=== PATIENT | male | born 1970 | race Caucasian/White ===

== ENCOUNTER → 2017-12-03 14:51 | Outpatient (CLI) | payer OTHER, SELFPAY ==
[2017-12-03 17:27] LABS: Prostate Specific Ag Screen 0.3 ng/mL (0.0-4.0)
== END ==
PROVIDERS: PCP Emergency Medicine; Visit Provider Urology
DX: Z12.5 Encounter for screening for malignant neoplasm of prostate (principal); Z80.42 Family history of malignant neoplasm of prostate
CPT/HCPCS: 36415; G0103

== ENCOUNTER → 2017-12-31 14:27 | Outpatient (CLI) | payer OTHER, SELFPAY ==
[2018-01-02 07:14] LABS: FSH 30.1 mIU/mL (1.5-12.4); LH 17.1 mIU/mL (1.7-8.6)
[2018-01-02 09:33] LABS: Prolactin 6.2 ng/mL (4.0-15.2)
[2018-01-04 18:35] LABS: Testosterone, Total, LC/MS 152.1 ng/dL (264.0-916.0)
== END ==
PROVIDERS: Visit Provider Urology
DX: E29.1 Testicular hypofunction (principal)
CPT/HCPCS: 36415; 83001; 83002; 84146; 84403

== ENCOUNTER → 2018-06-24 16:38 | Outpatient (CLI) | payer MEDICARE, OTHER, SELFPAY ==
[2018-06-24 16:56] LABS: Basophils % 0.2 % (0.1-2.0); Eosinophils # 0.1 K/mm3 (0.0-0.4); Eosinophils % 1.3 % (0.1-12.0); Hemoglobin 14.6 g/dL (14.1-18.0); Lymphocytes # 1.6 K/mm3 (0.7-4.5); Lymphocytes % 19.5 K/mm3 (10-50); Mean Corpuscular HGB Conc 33.3 g/dL (31.8-35.4); Mean Corpuscular Hemoglobin 29.8 pg (27.0-31.2); Mean Corpuscular Volume 89.5 fl (80-94); Mean Platelet Volume 6.9 fl (7.4-10.4); Monocytes # 0.5 K/mm3 (0.1-1.0); Monocytes % 5.7 % (1.7-9.3); Neutrophils % 73.3 % (37.0-80.0); Platelet Count 305 K/mm3 (142-424); Red Blood Count 4.91 M/mm3 (4.60-6.20); Red Cell Distribution Width 13.2 % (11.5-17.5); White Blood Count 8.2 K/mm3 (4.8-10.8)
[2018-06-24 17:44] LABS: Alanine Aminotransferase 63 U/L (12-78); Albumin Level 3.9 gm/dL (3.4-5.0); Albumin/Globulin Ratio 1.1 (1.1-1.8); Alkaline Phosphatase 108 U/L (46-116); Anion Gap 16.1 mEq/L (5-15); Aspartate Amino Transferase 31 U/L (15-37); Bilirubin,Total 0.4 mg/dL (0.2-1.0); Blood Urea Nitrogen 10 mg/dL (7-18); Calcium 8.9 mg/dL (8.5-10.1); Carbon Dioxide 26 mmol/L (21.0-32.0); Chloride 103 mmol/L (98-107); Chol/HDL Ratio 4.2 (1-3.5); Cholesterol 182 mg/dL (140-200); Creatinine,Serum 0.98 mg/dL (0.70-1.30); Estimated Glomerular Filt Rate 82 ml/min (>60); GFR (African American) 99 ML/MIN (>60); Globulin 3.6 gm/dl (1.3-3.2); Glucose 168 mg/dL (74-106); HDL Cholesterol 43 mg/dL (27-67); LDL Cholesterol 69 mg/dL (0-130); Potassium 4.1 mmoL/L (3.5-5.1); Sodium 141 mmol/L (136-145); T4 (Thyroxine) 9.4 ug/dl (4.7-13.3); Thyroid Stimulating Hormone 0.73 uIU/ml (0.358-3.740); Total Protein,Serum 7.5 gm/dL (6.4-8.2); Triglycerides 351 mg/dL (30-200); VLDL Cholesterol 70 mg/dL (0-40)
[2018-06-24 18:05] LABS: Hemoglobin A1C 7.7 % (0.0-7.0)
== END ==
PROVIDERS: PCP Emergency Medicine; Visit Provider Emergency Medicine
DX: E78.5 Hyperlipidemia, unspecified (principal); F32.9 Major depressive disorder, single episode, unspecified; F41.9 Anxiety disorder, unspecified; I10 Essential (primary) hypertension; R79.9 Abnormal finding of blood chemistry, unspecified
CPT/HCPCS: 36415; 80053; 80061; 80164; 83036; 84436; 84443; 85025

== ENCOUNTER → 2018-07-14 15:58 | Outpatient (REF) | payer MEDICARE, SELFPAY ==
[2018-07-16 09:17] LABS: Hep A Ab, IgM Negative (Negative); Hepatitis B Core Antibody IgM Negative (Negative); Hepatitis B Surface Antigen Negative (Negative)
[2018-07-16 11:34] LABS: Hepatitis C Antibody <0.1 s/co ratio (0.0-0.9)
== END ==
LOC: LAB 15:58
PROVIDERS: Visit Provider Emergency Medicine
DX: R53.83 Other fatigue (principal); E11.9 Type 2 diabetes mellitus without complications
CPT/HCPCS: 80074

== ENCOUNTER → 2019-01-13 18:17 | Outpatient (CLI) | payer MEDICARE, SELFPAY ==
[2019-01-13 19:28] LABS: Basophils % 0.4 % (0.1-2.0); Eosinophils # 0.1 K/mm3 (0.0-0.4); Eosinophils % 0.8 % (0.1-12.0); Hematocrit 47.1 % (42.0-52.0); Hemoglobin 15.1 g/dL (14.1-18.0); Lymphocytes # 1.8 K/mm3 (0.7-4.5); Lymphocytes % 17.1 % (10-50); Mean Corpuscular HGB Conc 32.1 g/dL (31.8-35.4); Mean Corpuscular Hemoglobin 29.3 pg (27.0-31.2); Mean Corpuscular Volume 91.4 fl (80-94); Mean Platelet Volume 8.1 fl (7.4-10.4); Monocytes # 0.5 K/mm3 (0.1-1.0); Monocytes % 4.9 % (1.7-9.3); Neutrophils # 8.2 K/mm3 (1.8-7.8); Neutrophils % 76.7 % (37.0-80.0); Platelet Count 390 K/mm3 (142-424); Red Blood Count 5.15 M/mm3 (4.60-6.20); Red Cell Distribution Width 13.2 % (11.5-17.5); White Blood Count 10.6 K/mm3 (4.8-10.8)
[2019-01-13 20:53] LABS: Alanine Aminotransferase 50 U/L (12-78); Albumin Level 4.4 gm/dL (3.4-5.0); Albumin/Globulin Ratio 1.2 (1.1-1.8); Alkaline Phosphatase 110 U/L (46-116); Anion Gap 17.5 mEq/L (5-15); Aspartate Amino Transferase 20 U/L (15-37); Bilirubin,Total 0.4 mg/dL (0.2-1.0); Blood Urea Nitrogen 9 mg/dL (7-18); Calcium 9.2 mg/dL (8.5-10.1); Carbon Dioxide 26 mmol/L (21.0-32.0); Chloride 98 mmol/L (98-107); Chol/HDL Ratio 4.5 (1-3.5); Cholesterol 179 mg/dL (140-200); Creatinine,Serum 1.06 mg/dL (0.70-1.30); Estimated Glomerular Filt Rate 75 ml/min (>60); GFR (African American) 90 ML/MIN (>60); Globulin 3.7 gm/dl (1.3-3.2); Glucose 154 mg/dL (74-106); HDL Cholesterol 40 mg/dL (27-67); LDL Cholesterol 90 mg/dL (0-130); Potassium 4.5 mmoL/L (3.5-5.1); Sodium 137 mmol/L (136-145); T4 (Thyroxine) 9.6 ug/dl (4.7-13.3); Thyroid Stimulating Hormone 1.98 uIU/ml (0.358-3.740); Total Protein,Serum 8.1 gm/dL (6.4-8.2); Triglycerides 245 mg/dL (30-200); VLDL Cholesterol 49 mg/dL (0-40)
[2019-01-13 21:03] LABS: Hemoglobin A1C 6.9 % (0.0-7.0)
[2019-01-15 15:06] LABS: Vitamin D 25 Hydroxy 45.1 ng/mL (30.0-100.0)
== END ==
PROVIDERS: Visit Provider Emergency Medicine
DX: E11.9 Type 2 diabetes mellitus without complications (principal); E78.5 Hyperlipidemia, unspecified; Z79.4 Long term (current) use of insulin; F17.210 Nicotine dependence, cigarettes, uncomplicated
CPT/HCPCS: 80053; 80061; 82652; 83036; 84436; 84443; 85025

== ENCOUNTER → 2019-03-02 06:02 | Outpatient (CLI) | payer MEDICARE, SELFPAY ==
--- NOTE | 2019-03-02 06:05 | CA_ITS ---
PROCEDURE: 2-D M-mode and color Doppler study INDICATIONS FOR THE TEST: Chest pain + COPD+ Heart Murmur Tobacco Smoking+ Palpitations Fatigue Syncope Edema+ Hypertension+Diabetes Mellitus+ Rheumatic Fever SOB [place]+Obesity Hyperlipidemia+ Family History HD Additional History gerd PATIENT INFORMATION HEIGHT: 70 WEIGHT:223 GENDER: Male B/P:151/81 2-D/M-MODE INTERPRETATION: 2-D MEASUREMENTS OBSERVED VALUES IN CMS Right Ventricular Dimension (RVDd) 2.6 Interventricular Septum (Thickness)(IVsd) 1.6 Left Ventricular Internal Dimensions(LVIDd) 4.9 Left Ventricular Posterior Wall (Thickness)(LVPWd) 1.0 Aortic Root 2.5 Aortic Cusp Separation 1.9 Left Atrial Dimensions (LAD) 3.1 2D 1. Left atrium is mildly enlarged, left ventricle is normal size, mild concentric left ventricular hypertrophy, visually estimated ejection fraction 55% with no regional wall motion abnormality. 2. The right atrium and right ventricle are mildly enlarged with normal contractility. 3. The aortic, mitral and tricuspid valve are grossly normal. 4. The pulmonic valve is poorly visualized. 5. No significant pericardial effusion noted. DOPPLER INTERROGATION: Doppler interrogation of the aortic, mitral and tricuspid valvular presence of mild mitral and tricuspid regurgitation, tricuspid regurgitation jet velocity is inadequate for calculation of the right ventricular systolic pressure, grade 1 diastolic dysfunction seen without tissue Doppler evidence of raised left atrial pressure. CONCLUSION: 1. Mildly left atrium, normal left ventricular size, mild concentric left ventricular hypertrophy, visually estimated ejection fraction 55% with no regional wall motion abnormality, grade 1 diastolic dysfunction seen without tissue Doppler evidence of raised left atrial pressure. 2. Mild mitral and tricuspid regurgitation. 3. No significant pericardial effusion noted
--- NOTE | 2019-03-02 06:21 | NM_ITS ---
CARDIOLITE SPECT MYOCARDIAL PERFUSION LEXISCAN, REST AND STRESS: [facility] REVIEW QGS EF AND WALL MOTION EVALUATION: QPS - PERFUSION EVALUATION HISTORY: Chest pain, SOB, HTN, DM, Family history, Tobacco use DOSE: 10.05 mCi technetium 99m mibi intravenously at rest followed by 29.6 mCi technetium 99m mibi following the intravenous ministration of 0.4 mg of Lexiscan. Resting blood pressure is 163/91. Stress blood pressure 174/77. FINDINGS: Ejection fraction is calculated to be 60%. Stress images reveal mildly decreased activity in the inferior apical wall while rest images reveal uniform myocardial activity IMPRESSION: Reversible ischemia in the inferior apical wall with normal ejection fraction normal wall motion
== END ==
PROVIDERS: PCP Emergency Medicine; Visit Provider Internal Medicine Cardiovascular Disease
DX: E78.5 Hyperlipidemia, unspecified (principal); I10 Essential (primary) hypertension; R06.00 Dyspnea, unspecified; R07.9 Chest pain, unspecified
CPT/HCPCS: 78452; 93017; 93306; A9502; J2785

== ENCOUNTER 2019-03-12 08:11 | Day surgery (SDC) | payer MEDICARE, SELFPAY ==
[2019-03-12] VITALS (19 sets, daily range): BP systolic 110–160; BP diastolic 61–90; PULSE 60–81; RESP 16; O2SAT 90–96; BMI 32.8
--- NOTE | 2019-03-12 | IR_ITS ---
CARDIAC CATHETERIZATION DATE OF CATHETERIZATION:03/12/2019 10:40 AM PROCEDURES: 1. Left heart catheterization 2. Left ventriculogram 3. Selective coronary angiogram INDICATION FOR TEST: 1. Abnormal Myoview 2. Risk factors for coronary artery disease 3. Angina pectoris Informed consent was obtained prior to the procedure. COMPLICATIONS: None ESTIMATED BLOOD LOSS: Less than 10 ml. TECHNIQUE: One percent lidocaine was used to anesthetize the right groin. The right femoral artery was accessed via the Seldinger technique. A 4-Armenian sheath was placed in the right femoral artery. The JL-4 and JR-4 catheter was also used to perform left heart catheterization left ventriculogram and selective coronary angiogram. At the end of the procedure the patient was transferred to the post-op holding area in stable condition for arterial sheath removal. ANGIOGRAPHIC RESULTS: 1. The left main artery normal 2. The left anterior descending artery has proximal 10-20% stenosis 3. The circumflex artery is a nondominant vessel and has 30% mid vessel stenosis 4. The right coronary artery is a large dominant vessel and normal 5. The ROMANO ventriculogram reveals normal 65% 6. The left ventricular end-diastolic pressure is a 25 mmHg IMPRESSION: 1. Mild nonflow limiting coronary artery disease 2. Normal ejection fraction 3. Elevated LVEDP consistent with diastolic dysfunction PLAN: 1. Treatment of diastolic dysfunction 2. Standard therapy for ischemic heart disease
[2019-03-12 09:01] LABS: Basophils % 0.2 % (0.1-2.0); Eosinophils # 0.1 K/mm3 (0.0-0.4); Eosinophils % 1.5 % (0.1-12.0); Hematocrit 39.5 % (42.0-52.0); Hemoglobin 13.8 g/dL (14.1-18.0); Lymphocytes # 1.6 K/mm3 (0.7-4.5); Lymphocytes % 18.6 % (10-50); Mean Corpuscular HGB Conc 35.1 g/dL (31.8-35.4); Mean Corpuscular Hemoglobin 30.1 pg (27.0-31.2); Mean Platelet Volume 7.8 fl (7.4-10.4); Monocytes # 0.6 K/mm3 (0.1-1.0); Monocytes % 6.8 % (1.7-9.3); Neutrophils # 6.1 K/mm3 (1.8-7.8); Neutrophils % 72.9 % (37.0-80.0); Platelet Count 291 K/mm3 (142-424); Red Cell Distribution Width 13.1 % (11.5-17.5); White Blood Count 8.3 K/mm3 (4.8-10.8)
[2019-03-12 09:06] LABS: Anion Gap 13.7 mEq/L (5-15); Blood Urea Nitrogen 13 mg/dL (7-18); Carbon Dioxide 25 mmol/L (21.0-32.0); Chloride 101 mmol/L (98-107); Creatinine Clearance Estimated 130 mL/min (50-200); Creatinine,Serum 1.02 mg/dL (0.70-1.30); Estimated Glomerular Filt Rate 78 ml/min (>60); GFR (African American) 94 ML/MIN (>60); Glucose 181 mg/dL (74-106); Sodium 136 mmol/L (136-145)
[2019-03-12 09:30] LABS: Potassium 3.7 mmoL/L (3.5-5.1)
== END 2019-03-12 14:32 | disposition home or self-care (01) ==
LOC: CATHLAB 08:14
PROVIDERS: PCP Emergency Medicine; Visit Provider Internal Medicine
DX: I25.10 Atherosclerotic heart disease of native coronary artery without angina pectoris (principal); I50.30 Unspecified diastolic (congestive) heart failure; E11.9 Type 2 diabetes mellitus without complications; J44.9 Chronic obstructive pulmonary disease, unspecified; I11.0 Hypertensive heart disease with heart failure; Z72.0 Tobacco use; E78.5 Hyperlipidemia, unspecified; Z79.51 Long term (current) use of inhaled steroids; Z79.84 Long term (current) use of oral hypoglycemic drugs; Z79.899 Other long term (current) drug therapy
CPT/HCPCS: 80048; 85025; 93458; 99152; C1725; C1769; J1644; Q9967

== ENCOUNTER → 2019-03-26 14:39 | Outpatient (CLI) | payer MEDICARE, SELFPAY | PROVIDERS: PCP Emergency Medicine; Visit Provider Internal Medicine Cardiovascular Disease | DX: E78.2 Mixed hyperlipidemia (principal); I10 Essential (primary) hypertension; I25.10 Atherosclerotic heart disease of native coronary artery without angina pectoris; R06.02 Shortness of breath; R53.83 Other fatigue; G47.33 Obstructive sleep apnea (adult) (pediatric) | CPT/HCPCS: G0399 ==

== ENCOUNTER → 2019-05-06 15:18 | Outpatient (CLI) | payer MEDICARE, SELFPAY ==
[2019-05-06 17:05] VITALS: BMI 30.1
== END ==
PROVIDERS: PCP Emergency Medicine; Visit Provider Emergency Medicine
DX: Z71.3 Dietary counseling and surveillance (principal); E11.9 Type 2 diabetes mellitus without complications
CPT/HCPCS: 97802

== ENCOUNTER → 2020-03-30 06:06 | Outpatient (CLI) | payer MEDICARE, SELFPAY ==
--- NOTE | 2020-03-30 06:08 | NM_ITS ---
APPROVED REPORT Exam: Nuclear Stress Test Indication: Chest pain, SOB, HTN, DM, High cholesterol, Tobacco use, Family history Patient Location: Outpatient Stress Tech: Tanaandree Angel [place] Tech:Bianca Estrada, ARRT, RT (R)(N) Ht: 5 ft 10 in Wt: 214 lbs HR: 54 bpm BP: 129/71 mmHg BSA: 2.15 m2 BMI: 30.7 History: Chest pain, SOB, HTN, DM, High cholesterol, Tobacco use, Family history Procedure: Patient received a 0.4 mg of intravenous Lexiscan, resting heart rate 54 bpm, resting blood pressure 129/71 mmHg, with Lexiscan maximum heart rate achived was 91 bpm which is % of the maximum predicted heart rate and blood pressure was 100/63 mmHg. With Lexiscan, patient denied any complaint of chest pain. Cardiac Stress and Resting SPECT Images: Cardiac Stress and Resting SPECT images were obtained using technetium 99m Myoview 30.8 mCi stress and 10.31 mCi at rest. Left ventricular ejection fraction is normal at 60% with no obvious wall motion abnormalities. No fixed or reversible defects evident Conclusion: Normal exam Electronically signed by : Cesar Coelho MD 04/01/2020 14:40:23
--- NOTE | 2020-03-30 06:08 | CA_ITS ---
APPROVED REPORT Exam: Pharmacologic Technologist: Tana Angel, Ht: 5 ft 10 in Wt: 214 lbs BSA: 2.15 m2 HR: 54 bpm BP: 129/71 mmHg Rhythm: SINUS BRADYCARDIA,RAD,NS ST ABNS,PAC Indications: Dyspnea, Chest pain 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: HTN, Hyperlipidemia, Diabetic ??? Noninsulin, Smoking Medications: Furosemide (LASIX),,,,, Metoprolol,,,,, Metformin,,,,, Pantoprazole,,,,, Atorvastatin,,,,, HCTZ,,,,, Citalopram,,,,, Buspirone,,,,, Combivent,,,,, Albuterol,,,,, Famotidine,,,,, Olanzapine,,,,, Cardiac Risk Factors: HTN, Hyperlipidemia, Diabetes (non-insulin), FHX of CAD, Smoking Stress Test Details Test: LEXISCAN HR Resting HR: 54 bpm Max Heart Rate (APMHR): 171 bpm Max HR Achieved: 92 bpm Target HR (85% APMHR): 145 bpm % of APMHR: 53 Recovery HR: 73 bpm BP Resting BP: 129.0/71.0 mmHg Max BP: 129.0/71.0 mmHg Recovery BP: 103.0/60.0 mmHg ECG Clinical Exercise duration: 04:04 min Highest Stage Achieved: Exercise capacity: 1.0 METs Stress ECG Conclusion DURING LEXISCAN INFUSION PATIENT HAD SOA,NAUSEA AND MALAISE. NO CHEST PAIN. NO ARRHYTHMIAS/ECTOPY. MILD EXAGGERATION OF BASELINE ST ABNORMALITIES. UNREMARKABLE LEXISCAN STRESS. MYOVIEW IMAGES REPORTED SEPARATELY. Electronically signed by : Hermilo Wilkins, 04/01/2020 11:27:34
--- NOTE | 2020-03-30 07:21 | HMH.ITSHM ---
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 []TAMSULOSIN SPIRONOLACTONE PANTOPRAZOLE OXYBUTININ OLANZAPINE MULTIVITAMIN METOPROLOL METFORMIN IPRATROPIUM HYDROXYZINE HCTZ FLUTICASONE FAMITIDINE VITAMIN D2 CITALOPRAM BUSPIRONE ATORVASTATIN ALBUTEROL LASIX
== END ==
LOC: RAD 06:08
PROVIDERS: PCP Family Medicine; Visit Provider Nurse Practitioner Family
DX: E78.5 Hyperlipidemia, unspecified (principal); I10 Essential (primary) hypertension; I20.9 Angina pectoris, unspecified; R06.00 Dyspnea, unspecified
CPT/HCPCS: 78452; 93017; 93306; A9502; J2785

== ENCOUNTER → 2020-04-13 12:48 | Outpatient (CLI) | payer MEDICARE, SELFPAY ==
--- NOTE | 2020-04-13 12:49 | CA_ITS ---
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 Laterality: Bilateral Study Quality: Good Indications: left arm numbness Risk Factors Hypertension: Hyperlipidemia dizziness Doppler Spectral Velocity Analysis ECA (R) 104.50/104.50 cm/s ECA (L) 92.50/18.80 cm/s dICA (R) 106.20/42.80 cm/s dICA (L) 103.70/34.30 cm/s Loli (R) 105.40/38.60 cm/s Loli (L) 96.80/39.40 cm/s pICA (R) 135.20/41.50 cm/s pICA (L) 102.80/31.70 cm/s dCCA (R) 100.50/37.40 cm/s dCCA (L) 96.00/24.80 cm/s pCCA (R) 157.20/46.00 cm/s pCCA (L) 133.70/39.40 cm/s Vert (R) 54.60/22.40 cm/s Vert (L) 67.70/24.00 cm/s ICA/CCA 1.40 ICA/CCA 1.10 Findings Duplex evaluation demonstrates stenosis of the right proximal internal carotid artery <20% with PSV <140 cm/sec, EDV <100 cm/sec, and IC/CC Ratio <4.0. Duplex evaluation demonstrates stenosis of the left proximal internal carotid artery <20% with PSV <140 cm/sec, EDV <100 cm/sec, and IC/CC Ratio <4.0. Duplex evaluation demonstrates antegrade flow of the bilateral Vertebral Arteries. Conclusion No increased velocities to suggest hemodynamically significant stenosis in either internal carotid artery. Electronically signed by : Cesar Coelho MD 04/13/2020 17:14:39
== END ==
PROVIDERS: PCP Family Medicine; Visit Provider Urology
DX: E78.5 Hyperlipidemia, unspecified (principal); I10 Essential (primary) hypertension; I25.10 Atherosclerotic heart disease of native coronary artery without angina pectoris; R06.02 Shortness of breath; R20.0 Anesthesia of skin
CPT/HCPCS: 93880

== ENCOUNTER → 2020-08-05 17:05 | Outpatient (CLI) | payer MEDICARE, SELFPAY ==
[2020-08-05 17:33] LABS: Hemoglobin A1C 6.6 % (4.0-6.0)
== END ==
PROVIDERS: Visit Provider Family Medicine
DX: E11.42 Type 2 diabetes mellitus with diabetic polyneuropathy (principal); Z79.84 Long term (current) use of oral hypoglycemic drugs
CPT/HCPCS: 83036

== ENCOUNTER 2020-08-23 13:30 | Emergency (ER) | payer MEDICARE, SELFPAY ==
[2020-08-23 13:59] VITALS: BP 139/85; PULSE 81; RESP 19; TEMP 36.9; O2SAT 98; BMI 29.5
[2020-08-23 14:04] VITALS: BP 139/85; PULSE 81; RESP 19; TEMP 36.9; O2SAT 98
--- NOTE | 2020-08-23 14:10 | HMH.EDUTC ---
[facility] [place] Disposition Clinical Impression: Sinusitis Qualifiers: Sinusitis location: unspecified location Chronicity: unspecified Qualified Code(s): J32.9 - Chronic sinusitis, unspecified Nausea & vomiting Qualifiers: Vomiting type: unspecified Vomiting Intractability: unspecified Qualified Code(s): R11.2 - Nausea with vomiting, unspecified Disposition: Home, Self-Care Condition on Discharge: Good Instructions: Sinusitis (Alternative Therapy), Sinusitis, Sinus Headache, DI for Sinusitis, Ondansetron Additional Instructions: *Monitor Temp, Over the counter Motrin or Tylenol as directed/as needed Tylenol every 4 hours and Motrin every 6 hours (as long as your family doctor has told you that you can take it) for fever or pain. and straight to ER if unable to lower temp less than 101.0 after medication given *Warm salt water gargles may help to soothe the throat *Throat Lozenges *Warm fluids like tea with honey may help to soothe the throat *Sleep elevated *Humidifier/Vaporizer *Flonase 2 sprays in each nostril daily but be aware that it may take 2-3 days before you notice improvement Follow up IMMEDIATELY for new or worsening symptoms or no Noticeable improvement over the next 48-72 hours. 911 for difficulty breathing or swallowing You was tested for today for COVID19 your test result should be back in the next 24-48 hours, you may call to the [facility] tomorrow to see if your test results are back and the result [phone] You was given a handout with instructions for Self Quarantine and Self isolation for while you wait on test results and what to do if they are positive If you are positive the Health Dept will be contacting you also Prescriptions: Cefdinir [Omnicef 300mg Capsule] 300 mg PO BID #20 cap Transmission Status: Received by [facility] Ondansetron [Zofran 4mg ODT] 4 mg PO TIDP PRN #6 tab PRN Reason: Nausea Transmission Status: Received by [facility] Referrals: Pineda Glover MD [Primary Care Provider] - As needed Time of Disposition: 14:31 Medical Decision Making - Chidi Inquiry Pt receiving controlled substance: No Chidi was queried for this patient: No Vital Signs: 08/23/20 13:59 08/23/20 14:04 Temperature 98.4 F 98.4 F Temperature Source Oral Pulse Rate 81 Pulse Rate [Left Radial] 81 Respiratory Rate 19 19 Blood Pressure 139/85 Blood Pressure [Right Arm] 139/85 Blood Pressure Mean [Right Arm] 103 Blood Pressure Source [Right Arm] Automatic Cuff Blood Pressure Position [Right Arm] Sitting 02 Sat by Pulse Oximetry 98 Oxygen Delivery Method Room Air Orders (Tests/Meds): ED MEDICATIONS Discontinued Medications Generic Name Dose Route Start Last Admin Trade Name Freq PRN Reason Stop Dose Admin Lidocaine HCl 5 ml 08/23/20 14:32 08/23/20 14:35 Lidocaine 1% 10ml Mdv SQ 08/23/20 14:33 Not Given ONCE ONE ORDERS Category Date Time Status Covid-19 Nasal PCR Sendout [facility] 08/23/20 14:25 Received [facility] HPI - General Stated complaint: vomiting Time Seen by Provider: 08/23/20 14:10 Mode of Arrival: Ambulatory Source of Information: Patient Limitations: No Limitations Description of Symptoms (Recalled from Triage Doc. by RN): Cough, nausea, diarrhea x 3 days HEENT Symptoms (Recalled from RN notes): No Resp Symptoms (Recalled from RN notes): Yes Skin Symptoms (Recalled from RN notes): No MS Symptoms (Recalled from RN notes): No Functional Status (Recalled from RN notes): stable - History of Present Illness Provider Complaint: Patient state that he has been having sinus pain and pressure with drainage in the back of his throat that is making him sick at his stomach States that he has been having cough also and this morning he had some nausea/vomiting and diarrhea State that he was worried that he may have COVID and wanted to get checked and see if there was something he could get for his sinuses - Related Data
[2020-08-23 20:25] LABS: UTC Influenza A Antigen Negative (Negative); UTC Influenza B Antigen Negative (Negative)
[2020-08-24 17:20] LABS: Adenovirus,PCR Not Detected (NotDetected); Bordetella Pertussis Not Detected (NotDetected); Chlamydophila Pneumoniae, PCR Not Detected (NotDetected); Coronavirus 19, PCR Not Detected (NotDetected); Coronavirus 229E Not Detected (NotDetected); Coronavirus NL63 Not Detected (NotDetected); Coronavirus OC43 Not Detected (NotDetected); Coronovirus HKU1,PCR Not Detected (NotDetected); Human Metapneumovirus Not Detected (NotDetected); Influenza A, PCR Not Detected (NotDetected); Influenza AH1, 2009 Not Detected (NotDetected); Influenza AH1, PCR Not Detected (NotDetected); Influenza AH3,PCR Not Detected (NotDetected); Influenza B, PCR Not Detected (NotDetected); Mycoplasma Pneumoniae, PCR Not Detected (NotDetected); Parainfluenza 1, PCR Not Detected (NotDetected); Parainfluenza 2, PCR Not Detected (NotDetected); Parainfluenza 3, PCR Not Detected (NotDetected); Parainfluenza 4, PCR Not Detected (NotDetected); Respiratory Syncytial Virus Not Detected (NotDetected); Rhinovirus/Enterovirus Not Detected (NotDetected)
== END 2020-08-23 14:35 | disposition home or self-care (01) ==
PROVIDERS: Emergency Provider Nurse Practitioner; PCP Family Medicine
DX: Z20.828 Contact with and (suspected) exposure to other viral communicable diseases (principal); J32.9 Chronic sinusitis, unspecified; E11.9 Type 2 diabetes mellitus without complications; E78.5 Hyperlipidemia, unspecified; J44.9 Chronic obstructive pulmonary disease, unspecified; K21.9 Gastro-esophageal reflux disease without esophagitis; F17.210 Nicotine dependence, cigarettes, uncomplicated; Z79.899 Other long term (current) drug therapy
CPT/HCPCS: G0463; 87581; 87633; 87798; 87804; 99201; U0003; U0004

== ENCOUNTER 2020-10-18 15:45 | Emergency (ER) | payer MEDICARE, SELFPAY ==
[2020-10-18] VITALS (7 sets, daily range): BP systolic 119–147; BP diastolic 62–83; PULSE 53–79; RESP 15–18; TEMP 36.7; O2SAT 97–100; BMI 28.4
--- NOTE | 2020-10-18 15:40 | ECG_ITS ---
APPROVED REPORT Exam: Resting ECG HR:61 bpm ECG Measurements Heart Rate 61 AXES FL 142 P 66 QRSd 84 QRS 56 QT 416 T 57 QTc 418 Conclusion Normal sinus rhythm Normal ECG Electronically signed by : Roberto Alatorre, 10/18/2020 19:54:13
--- NOTE | 2020-10-18 15:48 | XR_ITS ---
PROCEDURE: XR CHEST 2V CLINICAL HISTORY: pain COMPARISON: No exams were available for comparison FINDINGS: The cardiomediastinal silhouette and pulmonary vascularity are within normal limits. The lungs are clear without infiltrates, suspicious nodules, or pleural effusions. Mild lower thoracic curvature convex right IMPRESSION: No acute findings. Dictated by: Csear Coelho MD 10/18/2020 16:58 Cesar Coelho MD in [place] 10/18/2020 16:58
--- NOTE | 2020-10-18 15:54 | HMH.EDGENADL ---
ED Disposition Clinical Impression: Atypical chest pain, Chest wall pain Disposition: Home, Self-Care Condition on Discharge: Good Instructions: DI for Atypical Chest Pain Additional Instructions: You have been evaluated for chest wall pain. Please take anti-inflammatories. Follow-up with your lithographers printer as soon as available. Follow-up with your primary care doctor in 1 to 2 days. Return to the emergency department for any new or worsening symptoms. Prescriptions: Ibuprofen [Ibuprofen 600mg Tablet] 600 mg PO Q8 #18 tab Transmission Status: Received by [facility] Referrals: Pineda Glover MD [Primary Care Provider] - Hermelindo Galeas MD [Staff Physician] - Time of Disposition: 20:04 - Critical Care Critical Care Time: No Attestation: On , the high probability of a clinically significant, sudden or life threatening deterioration of the following system(s) required my full and direct attention, intervention and personal management. The time I documented below is in addition to time spent performing reported procedures but includes the following listed in this critical care notation. Medical Decision Making - Medical Records Medical records reviewed: Yes: I reviewed the patient's medical records. - Chidi Inquiry Pt receiving controlled substance: No Vital Signs: 10/18/20 15:45 10/18/20 16:39 10/18/20 17:37 Temperature 98.1 F Temperature Source Oral Pulse Rate [Left Radial] 72 56 L 55 L Respiratory Rate 18 Blood Pressure [Right Arm] 145/83 H 119/62 134/74 Blood Pressure Mean [Right Arm] 103 81 94 Blood Pressure Source [Right Arm] Automatic Cuff Automatic Cuff Automatic Cuff Blood Pressure Position [Right Arm] Sitting Sitting Sitting 02 Sat by Pulse Oximetry 98 97 97 Oxygen Delivery Method Room Air Room Air Room Air 10/18/20 18:08 10/18/20 18:40 10/18/20 19:03 Temperature Temperature Source Pulse Rate [Left Radial] 56 L 56 L 53 L Respiratory Rate Blood Pressure [Right Arm] 147/76 H 146/77 H 134/68 Blood Pressure Mean [Right Arm] 99 100 90 Blood Pressure Source [Right Arm] Automatic Cuff Automatic Cuff Automatic Cuff Blood Pressure Position [Right Arm] Sitting Sitting Sitting 02 Sat by Pulse Oximetry 100 97 99 Oxygen Delivery Method Room Air Room Air Room Air - Lab Data Lab Results 10/18/20 15:51: WBC 11.4 H, RBC 4.92, Hgb 15.6, Hct 45.8, MCV 93.0, MCH 31.8 H, MCHC 34.2, RDW 13.2, Plt Count 379, MPV 7.3 L, Neut % (Auto) 74.4, Lymph % (Auto) 19.0, [place] % (Auto) 5.3, Eos % (Auto) 0.9, Baso % (Auto) 0.3, Neut # (Auto) 8.5 H, Lymph # (Auto) 2.2, [place] # (Auto) 0.6, Eos # (Auto) 0.1, Baso # (Auto) 0.0 10/18/20 15:51: Sodium 137, Potassium 4.1, Chloride 95 L, Carbon Dioxide 31 H, Anion Gap 15.1 H, BUN 14, Creatinine 1.30 H, Estimated Creat Clear 86, Estimated GFR 58 L, Est GFR ( Amer) 71, Glucose 108 H, Calcium 10.3 H, Troponin I < 0.01 10/18/20 19:29: Troponin I < 0.01 Result diagrams: 10/18/20 15:51 10/18/20 15:51 Orders (Tests/Meds): ED MEDICATIONS Generic Name Dose Route Start Last Admin Trade Name Freq PRN Reason Stop Dose Admin Sodium Chloride 1,000 mls @ 999 mls/hr 10/18/20 18:30 10/18/20 18:44 Sod Chlor 0.9% 1000ml Bag IV 10/18/20 19:30 999 mls/hr .Q1H1M TOMMY Administration Discontinued Medications Generic Name Dose Route Start Last Admin Trade Name Freq PRN Reason Stop Dose Admin Iopamidol 70 ml 10/18/20 19:19 10/18/20 19:20 Iopamidol-370 (76%);100ml Bottle IV 10/18/20 19:20 70 ml ONCE ONE Administration Ketorolac Tromethamine 15 mg 10/18/20 19:59 Ketorolac 30mg/Ml Vial IV 10/18/20 20:00 ONCE ONE Sodium Chloride 50 ml 10/18/20 19:19 10/18/20 19:20 0.9 % Sodium Chloride 50 Ml Vial IV 10/18/20 19:20 50 ml ONCE ONE Administration Sodium Chloride 10 ml 10/18/20 19:19 10/18/20 19:20 Sodium Chloride 0.9% 10ml Syr (Rad Only) IV 10/18/20 19:20 10 ml ONCE ONE Administration ORDE
[2020-10-18 16:14] LABS: Basophils % 0.3 % (0.1-2.0); Eosinophils # 0.1 K/mm3 (0.0-0.4); Eosinophils % 0.9 % (0.1-12.0); Hematocrit 45.8 % (42.0-52.0); Hemoglobin 15.6 g/dL (14.1-18.0); Lymphocytes # 2.2 K/mm3 (0.7-4.5); Mean Corpuscular HGB Conc 34.2 g/dL (31.8-35.4); Mean Corpuscular Hemoglobin 31.8 pg (27.0-31.2); Mean Platelet Volume 7.3 fl (7.4-10.4); Monocytes # 0.6 K/mm3 (0.1-1.0); Monocytes % 5.3 % (1.7-9.3); Neutrophils # 8.5 K/mm3 (1.8-7.8); Neutrophils % 74.4 % (37.0-80.0); Platelet Count 379 K/mm3 (142-424); Red Blood Count 4.92 M/mm3 (4.60-6.20); Red Cell Distribution Width 13.2 % (11.5-17.5); White Blood Count 11.4 K/mm3 (4.8-10.8)
[2020-10-18 16:18] LABS: Anion Gap 15.1 mEq/L (5-15); Blood Urea Nitrogen 14 mg/dl (9-20); Calcium 10.3 mg/dl (8.4-10.2); Carbon Dioxide 31 mmol/L (22.0-30.0); Chloride 95 mmol/L (98-107); Creatinine Clearance Estimated 86 mL/min (50-200); Estimated Glomerular Filt Rate 58 ml/min (>60); GFR (African American) 71 ML/MIN (>60); Glucose 108 mg/dl (74-100); Potassium 4.1 mmoL/L (3.5-5.1); Sodium 137 mmol/L (136-145)
[2020-10-18 16:34] LABS: Troponin I < 0.01 ng/ml (0.00-0.034)
--- NOTE | 2020-10-18 18:24 | CT_ITS ---
PROCEDURE: CT ANGIO CHEST CLINCIAL INDICATION: pain with inspiration Chest pain COMPARISON: No exams were available for comparison TECHNIQUE: IV Contrast: 70ML Isovue 370 Axial images obtained with sagittal and coronal reformats. All CT scans at the facility use one or more dose reduction, viz: automated exposure control, ma/kV adjustment per patient size (including targeted exams where dose is matched to indication, i.e. head), or iterative reconstruction technique. FINDINGS: The thyroid gland is prominent on both sides. No evidence of aortic aneurysm or dissection. No evidence of pulmonary embolus. No mediastinal or hilar mass or adenopathy. Mild paraseptal emphysematous changes. Incidental note is made of gynecomastia. No lobar consolidation or collapse. IMPRESSION: No acute finding. No evidence of pulmonary embolus or aortic aneurysm or dissection. Dictated by: Cesar Coelho MD 10/19/2020 05:45 Cesar Coelho MD in [place] 10/19/2020 05:45
--- NOTE | 2020-10-18 19:22 | PC.NURSE ---
pt back from RAD
[2020-10-18 20:03] LABS: Troponin I < 0.01 ng/ml (0.00-0.034)
== END 2020-10-18 20:34 | disposition home or self-care (01) ==
PROVIDERS: Emergency Provider Emergency Medicine; PCP Family Medicine
DX: R07.89 Other chest pain (principal); J44.9 Chronic obstructive pulmonary disease, unspecified; I25.10 Atherosclerotic heart disease of native coronary artery without angina pectoris; E11.65 Type 2 diabetes mellitus with hyperglycemia; K21.9 Gastro-esophageal reflux disease without esophagitis; E78.5 Hyperlipidemia, unspecified; I10 Essential (primary) hypertension; Z79.899 Other long term (current) drug therapy
CPT/HCPCS: 71046; 71275; 80048; 84484; 85025; 93005; 96365; 96375; 99283; Q9967

== ENCOUNTER → 2020-11-04 18:24 | Outpatient (CLI) | payer MEDICARE, SELFPAY ==
[2020-11-09 15:41] LABS: Testosterone, Total, LC/MS 176.8 ng/dL (264.0-916.0); Testosterone,Free 4.4 pg/mL (7.2-24.0)
== END ==
PROVIDERS: Visit Provider Family Medicine
DX: J43.9 Emphysema, unspecified (principal); E29.1 Testicular hypofunction
CPT/HCPCS: 84402; 84403

== ENCOUNTER → 2021-01-02 11:19 | Outpatient (CLI) | payer MEDICARE, SELFPAY ==
--- NOTE | 2021-01-02 11:21 | US_ITS ---
APPROVED REPORT Exam Type: Ankle to Brachial Index Eyeglass Frames Inspector: RT Saad(R) Indications Claudication: Rest Pain: Left Current Smoker Risk Factors Hypertension Hyperlipidemia Obesity Diabetes Current Smoker Pressures/Indices Right Indices Left Indices Brachial 143.00 mmHg Brachial 143.00 mmHg Low Thigh 161.00 mmHg 1.13 Low Thigh 157.00 mmHg 1.10 Calf 171.00 mmHg 1.20 Calf 165.00 mmHg 1.15 Ankle(PT) 166.00 mmHg 1.16 Ankle(PT) 161.00 mmHg 1.13 Ankle(DP) 159.00 mmHg 1.11 Ankle(DP) 163.00 mmHg 1.14 Digit 143.00 mmHg 1.00 Digit 153.00 mmHg 1.07 Findings RT TIANA=1.2 LT TIANA=1.14 RT TBI=1.00 LT TBI=1.07 Normal pulses Normal waveforms Conclusion RT TIANA=1.2 LT TIANA=1.14 RT TBI=1.00 LT TBI=1.07 Normal pulses Normal waveforms Electronically signed by : Cesar Coelho MD 01/02/2021 15:59:23
== END ==
LOC: RT 11:21
PROVIDERS: PCP Family Medicine; Visit Provider Family Medicine
DX: I73.9 Peripheral vascular disease, unspecified (principal)
CPT/HCPCS: 93923

== ENCOUNTER → 2021-01-17 14:36 | Outpatient (CLI) | payer MEDICARE, SELFPAY ==
[2021-01-17 14:47] LABS: Basophils # 0.1 K/mm3 (0-0.2); Basophils % 0.5 % (0.1-2.0); Eosinophils # 0.1 K/mm3 (0.0-0.4); Eosinophils % 0.9 % (0.1-12.0); Hematocrit 43.5 % (42.0-52.0); Hemoglobin 14.4 g/dL (14.1-18.0); Lymphocytes # 1.9 K/mm3 (0.7-4.5); Mean Corpuscular Hemoglobin 30.9 pg (27.0-31.2); Mean Corpuscular Volume 93.7 fl (80-94); Mean Platelet Volume 8.4 fl (7.4-10.4); Monocytes # 0.6 K/mm3 (0.1-1.0); Neutrophils # 7.4 K/mm3 (1.8-7.8); Neutrophils % 73.7 % (37.0-80.0); Platelet Count 360 K/mm3 (142-424); Red Blood Count 4.64 M/mm3 (4.60-6.20); Red Cell Distribution Width 13.4 % (11.5-17.5)
[2021-01-17 15:07] LABS: Alanine Aminotransferase 20 U/L (12-78); Albumin Level 4.6 g/dl (3.5-5.0); Albumin/Globulin Ratio 1.8 (1.1-1.8); Alkaline Phosphatase 84 U/L (38-126); Anion Gap 13.6 mEq/L (5-15); Aspartate Amino Transferase 24 U/L (17-59); Bilirubin,Total 0.4 mg/dl (0.2-1.3); Blood Urea Nitrogen 11 mg/dl (9-20); Calcium 9.6 mg/dl (8.4-10.2); Carbon Dioxide 25 mmol/L (22.0-30.0); Chloride 102 mmol/L (98-107); Chol/HDL Ratio 4.2 (1-3.5); Cholesterol 157 mg/dl (140-200); Estimated Glomerular Filt Rate 71 ml/min (>60); GFR (African American) 86 ML/MIN (>60); Globulin 2.6 g/dL (1.3-3.2); Glucose 154 mg/dl (74-100); HDL Cholesterol 37 mg/dl (40-60); Potassium 3.6 mmoL/L (3.5-5.1); Sodium 137 mmol/L (136-145); Total Protein,Serum 7.2 g/dl (6.3-8.2); Triglycerides 239 mg/dl (30-150); VLDL Cholesterol 48 mg/dL (0-40)
[2021-01-17 15:18] LABS: Direct LDL Cholesterol 81.23 mg/dL (100-129)
[2021-01-17 15:23] LABS: 25-OH Vitamin D, Total 47.2 ng/mL (30-100)
[2021-01-17 15:24] LABS: T4 (Thyroxine) 10.1 ug/dl (5.53-11.0)
[2021-01-17 15:37] LABS: Prostate Specific Ag Screen 0.3 ng/ml (0.0-4.0); Thyroid Stimulating Hormone 0.33 uIU/mL (0.465-4.68)
[2021-01-17 15:56] LABS: Hemoglobin A1C 6.1 % (4.0-6.0)
[2021-01-17 19:40] LABS: Microalbumin < 6.000 mg/L (0-16.7)
[2021-01-17 20:49] LABS: Creatinine,Urine Random 6 mg/dL (Not Estab.)
== END ==
PROVIDERS: Visit Provider Family Medicine
DX: E11.40 Type 2 diabetes mellitus with diabetic neuropathy, unspecified (principal); Z12.5 Encounter for screening for malignant neoplasm of prostate; E55.9 Vitamin D deficiency, unspecified; Z79.84 Long term (current) use of oral hypoglycemic drugs
CPT/HCPCS: 80053; 80061; 82043; 82306; 82570; 83036; 84436; 84443; 85025; G0103

== ENCOUNTER → 2021-01-31 14:25 | Outpatient (CLI) | payer MEDICARE, SELFPAY ==
--- NOTE | 2021-01-31 14:30 | XR_ITS ---
PROCEDURE: XR FOOT LT MIN 3V CLINICAL INDICATION: pain Fifth toe pain COMPARISON: No exams were available for comparison FINDINGS: No fracture or dislocation. No lytic or blastic change. There is normal mineralization. The joint spaces are well-preserved. No significant degenerative/arthritic changes. No erosive changes evident. Other findings:None. IMPRESSION: No acute findings. Dictated by: Cesar Coelho MD 01/31/2021 17:29 Cesar Coelho MD in [place] 01/31/2021 17:29
[2021-02-07 15:37] LABS: Testosterone, Total, LC/MS 234.8 ng/dL (264.0-916.0)
== END ==
LOC: LAB 14:27
PROVIDERS: PCP Family Medicine; Visit Provider Family Medicine
DX: M79.672 Pain in left foot (principal); R79.89 Other specified abnormal findings of blood chemistry
CPT/HCPCS: 73630; 84403

== ENCOUNTER 2021-03-01 15:04 | Emergency (ER) | payer MEDICARE, SELFPAY ==
[2021-03-01 15:10] VITALS: BP 125/77; PULSE 80; RESP 19; TEMP 36.8; O2SAT 100; BMI 28.4
--- NOTE | 2021-03-01 15:52 | HMH.EDUTC ---
[facility] [place] Disposition Clinical Impression: Edema Qualifiers: Edema type: unspecified Qualified Code(s): R60.9 - Edema, unspecified Disposition: Home, Self-Care Condition on Discharge: Good Instructions: Edema (Alternative Therapy), DI for Dependent Edema, Low-Sodium Diet, Edema Additional Instructions: Keep your feet elevated when you are sitting down this will help to decrease swelling in your legs, feet and ankles *Eat a diet low in sodium (salt) Take your Furosemide the way your Family Doctor prescribed it Follow up with your Family Doctor if needed or any other complications Make sure to make a list of your medications that you get through the mail Return if needed Straight to ER if any life threatening symptoms Referrals: Pineda Glover MD [Primary Care Provider] - As needed Time of Disposition: 16:01 Medical Decision Making - Chidi Inquiry Pt receiving controlled substance: No Chidi was queried for this patient: No Vital Signs: 03/01/21 15:10 03/01/21 16:08 Temperature 98.3 F 98.3 F Temperature Source Oral Pulse Rate 80 Pulse Rate [Right Brachial] 80 Respiratory Rate 19 19 Blood Pressure 125/77 Blood Pressure [Right Arm] 125/77 Blood Pressure Mean [Right Arm] 93 Blood Pressure Source [Right Arm] Automatic Cuff Blood Pressure Position [Right Arm] Sitting 02 Sat by Pulse Oximetry 100 Oxygen Delivery Method Room Air Medical Decision Narrative: Called [facility] and they informed us that when they went to fill the prescription for Furosemide yesterday, it showed that he should still have Furosemide 40mg BID that he received in the mail about a month or so ago Patient called family member at home and confirmed he did have Furosemide 40mg BID at home that he received in the mail from [facility] Patient confused on which medication he was getting from each place, Patient educated that he needed to make sure to bring his medication or a list of his medication that he gets from [facility] and keep with him to show his PCP and [facility] Patient educated to eat a low sodium diet and not drink any more tomato juice as this is high in sodium until after he sees his PCP Patient educated that he needed to follow instructions given to him by his PCP and take the medication the way his PCP prescribed it. [facility] HPI - General Stated complaint: legs swelling from knees down Time Seen by Provider: 03/01/21 15:52 Mode of Arrival: Ambulatory Source of Information: Patient Limitations: No Limitations Description of Symptoms (Recalled from Triage Doc. by RN): PATIENT C/O SWELLING OF LEFT LEG AND FOOT X 2 DAYS HEENT Symptoms (Recalled from RN notes): No Resp Symptoms (Recalled from RN notes): No Skin Symptoms (Recalled from RN notes): No MS Symptoms (Recalled from RN notes): Yes Functional Status (Recalled from RN notes): WNL - History of Present Illness Provider Complaint: Patient state that he has been having swelling in his feet, ankles and hands with left foot being worse for several days State that he saw his PCP yesterday and prescription was sent to [facility] but they wouldnt fill it due to it was showing he had received lasix in the mail State that he was confused if he was suppose to have more lasix or if he needed to continue taking what he had. State that swelling is better today but his PCP was not there today so he came here States that he has been drinking tomato juice and working outside alot and thinks that may have caused his swelling - Related Data Home Medications Medication Instructions Recorded Confirmed ipratropium 20 mcg-albuterol 100 1 puff INHALATION Q6H 05/28/19 02/28/21 mcg/actuation mist for inhalation [id number]-[id number] acid 400 tab PO tab 05/28/19 02/28/21 mcg-lycopene 300 mcg-ginkgo 120 mg tablet Previous Rx's Medication Instructions Recorded albuterol sulfate 90 mcg/actuation 2 puff INHALATION Q6H PRN #18 g 10/22/18 aerosol inhaler fluticasone furoate 100 1 inh
[2021-03-01 16:08] VITALS: BP 125/77; PULSE 80; RESP 19; TEMP 36.8; O2SAT 100
== END 2021-03-01 16:10 | disposition home or self-care (01) ==
PROVIDERS: Emergency Provider Nurse Practitioner; PCP Family Medicine
DX: R60.0 Localized edema (principal); E11.42 Type 2 diabetes mellitus with diabetic polyneuropathy; I10 Essential (primary) hypertension; K21.9 Gastro-esophageal reflux disease without esophagitis; F41.8 Other specified anxiety disorders; J44.9 Chronic obstructive pulmonary disease, unspecified; F17.210 Nicotine dependence, cigarettes, uncomplicated; Z79.899 Other long term (current) drug therapy
CPT/HCPCS: G0463; 99202

== ENCOUNTER 2021-08-16 17:21 | Emergency (ER) | payer MEDICARE, SELFPAY ==
[2021-08-16 18:17] VITALS: BP 0/0; PULSE 0; RESP 0; TEMP -17.7; TEMP 0
--- NOTE | 2021-08-16 19:23 | PC.NURSE ---
PATIENT DID NOT ANSWER WHEN CALLED TO COME BACK
== END 2021-08-16 18:20 | disposition left against medical advice (07) ==
LOC: UTC 17:25
PROVIDERS: Emergency Provider Nurse Practitioner; PCP Family Medicine
DX: Z53.21 Procedure and treatment not carried out due to patient leaving prior to being seen by health care provider (principal)

== ENCOUNTER → 2021-11-10 12:57 | Outpatient (CLI) | payer MEDICARE, SELFPAY ==
--- NOTE | 2021-11-10 12:58 | CA_ITS ---
APPROVED REPORT EXAM: Comprehensive 2D, Doppler, and color-flow Echocardiogram Driver Retraining Instructor: Debby Dobson RT(R) Ht: 5 ft 10 in Wt: 165lbs BSA: 1.92 BP: 130/80 mmHg Indications: SOB, CP, smoker, HTN, hyperlipidemia, CAD, DD 2D Dimensions LVOT 1.88 cm (M/F) 1.5-2.5 LA Volume 28.00 mL LA Volume Index 14.51 mL/m2 (M/F) 16-34 M-Mode Dimensions RVDd 2.05 cm (0.9-2.6) LA Diam 2.86 cm (1.9-4.0) LVDd 4.83 cm (3.5-5.7) Ao Diam 2.40 cm (2.0-3.7) LVDs 3.54 cm (3.5-5.7) IVSd 0.91 cm (0.6-1.1) PWd 0.95 cm (0.6-1.1) EF (Teich) 52.10% FS 26.70% EDV (Teich) 109.10 mL ESV (Teich) 52.30 mL LV Diastology E Decel Time 180.00 (160-240 msec) E/A Ratio 1.3 MED E' 8.00 (< 7 cm/sec) E'/MED E' Ratio 13.44 (>14) LAT E' 11.90 (<10 cm/sec) E/LAT E' Ratio 9.03 (>14) Mitral Valve MV E Max Lyle. 107.00 (40-130 cm/s) MV A Velocity 85.00 (40-130 cm/s) E/A Ratio 1.26 MV Decel. Time 180.00 (160-240 ms) MV PHT 53.00 ms Left Ventricle Left atrium is normal size, left ventricle is normal size, there is no concentric left ventricular hypertrophy, visually estimated ejection fraction 55% with no regional wall motion abnormality, diastolic parameters are within normal range. Right Ventricle Right atrium and right ventricle are normal size and contractility. Aortic Valve Aortic valve is minimally fibrosed, there is no aortic stenosis or aortic insufficiency. Mitral Valve Mitral valve grossly normal, there is trace mitral regurgitation. Tricuspid Valve Tricuspid valve grossly normal, there is trace tricuspid regurgitation, tricuspid regurgitation jet velocity is inadequate for calculation of the right ventricular systolic pressure. Pulmonic Valve Pulmonic valve is poorly visualized. Great Vessels Aortic root is normal size. Inferior vena cava is normal size with normal inspiratory collapse Pericardium No significant pericardial effusion noted. Conclusion 1. Normal left ventricular size, preserved left ventricular systolic function, visually estimated ejection fraction 55% with no regional wall motion abnormality, diastolic parameters are within normal range. 2. Trace mitral and tricuspid regurgitation. 3. No significant pericardial effusion noted. 4. Inferior vena cava is normal size with normal inspiratory collapse. Electronically signed by : Hermelindo Galeas MD 11/10/2021 15:06:13
== END ==
LOC: RT 12:58
PROVIDERS: PCP Family Medicine; Visit Provider Urology
DX: E78.2 Mixed hyperlipidemia (principal); F17.200 Nicotine dependence, unspecified, uncomplicated; I10 Essential (primary) hypertension; I25.118 Atherosclerotic heart disease of native coronary artery with other forms of angina pectoris; R06.09 Other forms of dyspnea
CPT/HCPCS: 93306

== ENCOUNTER 2021-11-30 13:24 | Emergency (ER) | payer MEDICARE, SELFPAY ==
[2021-11-30 14:23] VITALS: BP 133/64; PULSE 55; RESP 18; TEMP 36.6; O2SAT 95; BMI 26.9
--- NOTE | 2021-11-30 14:58 | HMH.EDUTC ---
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 Take the antibiotics as directed. Follow up with your regular doctor. Don't shave until this is well healed. I'd recommend waiting at least a couple of weeks. GO TO THE ER FOR ANY WORSENING SYMPTOMS OR CONCERNS Prescriptions: Sulfamethoxazole/Trimethoprim [Bactrim DS tablet] 1 each PO BID 10 Days #20 tab Transmission Status: Received by [facility] Mupirocin [Bactroban 2% Ointment 22gm tube] 1 applicatio TP TID 7 Days #1 gm Transmission Status: Received by [facility] cephALEXin [cephALEXin 500mg capsule] 500 mg PO Q6H 10 Days #40 cap Transmission Status: Received by [facility] Referrals: Pineda Glover MD [Primary Care Provider] - Time of Disposition: 15:26 Medical Decision Making - Medical Records Medical records reviewed: No: I reviewed the patient's medical records. - Chidi Inquiry Pt receiving controlled substance: No Vital Signs: 11/30/21 14:23 Temperature 97.8 F Temperature Source Oral Pulse Rate [Left] 55 L Respiratory Rate 18 Blood Pressure [Right Arm] 133/64 Blood Pressure Mean [Right Arm] 87 02 Sat by Pulse Oximetry 95 Orders (Tests/Meds): ED MEDICATIONS Discontinued Medications Generic Name Dose Route Start Last Admin Trade Name Freq PRN Reason Stop Dose Admin Ceftriaxone Sodium 1 gm 11/30/21 15:20 11/30/21 15:30 Ceftriaxone 1gm Vial IM 11/30/21 15:21 1 gm ONCE ONE Administration Lidocaine HCl 0 ml 11/30/21 15:20 11/30/21 15:30 Lidocaine 1% 5ml Pf Vial IM 11/30/21 15:21 2 ml ONCE ONE Administration [facility] HPI - General Stated complaint: left side knot on cheek Time Seen by Provider: 11/30/21 14:58 Mode of Arrival: Ambulatory Source of Information: Patient Limitations: No Limitations Description of Symptoms (Recalled from Triage Doc. by RN): pt c/o a knot on his jaw on the L side. x2 days. HEENT Symptoms (Recalled from RN notes): Yes Resp Symptoms (Recalled from RN notes): No Skin Symptoms (Recalled from RN notes): No MS Symptoms (Recalled from RN notes): No Functional Status (Recalled from RN notes): wnl - History of Present Illness Provider Complaint: He states that for the past 2 days he has had a swollen area on his left facial cheek. He thought it was an infected hair, but he has not been able to get it any better with warm compresses. He is a diabetic. He denies any fever or chills. He denies any other skin issues or complaints. - Related Data Home Medications Medication Instructions Recorded Confirmed furosemide 40 mg tablet 40 mg PO BID tab 10/26/21 11/01/21 oxybutynin chloride 5 mg tablet 5 mg PO DAILY tab 11/06/21 11/06/21 Previous Rx's Medication Instructions Recorded blood sugar diagnostic See Dose Instructions .ROUTE 05/28/19 .MEDSUPPLY #50 each hydrochlorothiazide 25 mg tablet 25 mg PO DAILY #90 tab 03/14/21 alcohol swabs 1 pad TOPICAL NEEDED #200 each 04/11/21 famotidine 20 mg tablet 20 mg PO DAILY #30 tab 04/24/21 ranolazine 500 mg tablet,extended 500 mg PO BID #60 tab 04/24/21 release,12 hr escitalopram oxalate 20 mg tablet 20 mg PO DAILY #90 tab 07/13/21 atorvastatin 80 mg tablet See Rx Instructions .ROUTE 08/10/21 .COMPLEX #90 tab metformin 1,000 mg tablet 500 mg PO BID #180 tab 08/10/21 olanzapine 10 mg tablet See Rx Instructions .ROUTE 08/10/21 .COMPLEX #90 tab test
[2021-11-30 16:05] VITALS: BP 133/64; PULSE 55; RESP 18; TEMP 36.6
== END 2021-11-30 16:06 | disposition home or self-care (01) ==
PROVIDERS: Emergency Provider Nurse Practitioner Family; PCP Family Medicine
DX: L02.01 Cutaneous abscess of face (principal)
CPT/HCPCS: G0463; 96372; 99202; 99212; 99213; J0696

== ENCOUNTER 2021-12-31 17:51 | Emergency (ER) | payer MEDICARE, SELFPAY ==
[2021-12-31 19:00] VITALS: BP 141/84; PULSE 76; RESP 18; TEMP 37.1; O2SAT 98; BMI 25.9
--- NOTE | 2021-12-31 19:20 | HMH.EDUTC ---
[facility] [place] Disposition Clinical Impression: Laceration Disposition: Home, Self-Care Condition on Discharge: Good Instructions: DI for Laceration Repair-Skin Glue Additional Instructions: keep area clan and dry leave steri strips they will fall off watch for s/s infection for any concerns return or be seen in ed Prescriptions: cephALEXin [Cephalexin 500mg Tab] 500 mg PO BID 7 Days #14 tab Transmission Status: Pending to [facility] Referrals: Pineda Glover MD [Primary Care Provider] - Time of Disposition: 19:37 Medical Decision Making - Chidi Inquiry Pt receiving controlled substance: No Vital Signs: 12/31/21 19:00 Temperature 98.7 F Temperature Source Oral Pulse Rate [Right Brachial] 76 Respiratory Rate 18 Blood Pressure [Right Arm] 141/84 H Blood Pressure Mean [Right Arm] 103 Blood Pressure Source [Right Arm] Automatic Cuff Blood Pressure Position [Right Arm] Sitting 02 Sat by Pulse Oximetry 98 Oxygen Delivery Method Room Air Orders (Tests/Meds): ORDERS Category Date Time Status XR tibia fibula RT 2V Stat Exams 12/31/21 19:25 Ordered [facility] [place] HPI - General Chief complaint: Urgent Treatment Center Stated complaint: AO03/20@1700 Cut R lower leg Time Seen by Provider: 12/31/21 19:20 Mode of Arrival: Ambulatory Source of Information: Patient Limitations: No Limitations Description of Symptoms (Recalled from Triage Doc. by RN): LACERATION TO RIGHT ORTIZ HEENT Symptoms (Recalled from RN notes): No Resp Symptoms (Recalled from RN notes): No Skin Symptoms (Recalled from RN notes): Yes MS Symptoms (Recalled from RN notes): No Functional Status (Recalled from RN notes): WNL - History of Present Illness Provider Complaint: 51 yr old male presents for laceration to rt lower leg. pt states he stepped over a concrete plate and tripped. - Related Data Home Medications Medication Instructions Recorded Confirmed furosemide 40 mg tablet 40 mg PO BID tab 10/26/21 12/27/21 oxybutynin chloride 5 mg tablet 5 mg PO DAILY tab 11/06/21 12/27/21 Previous Rx's Medication Instructions Recorded blood sugar diagnostic See Dose Instructions .ROUTE 05/28/19 .MEDSUPPLY #50 each hydrochlorothiazide 25 mg tablet 25 mg PO DAILY #90 tab 03/14/21 alcohol swabs 1 pad TOPICAL NEEDED #200 each 04/11/21 famotidine 20 mg tablet 20 mg PO DAILY #30 tab 04/24/21 ranolazine 500 mg tablet,extended 500 mg PO BID #60 tab 04/24/21 release,12 hr escitalopram oxalate 20 mg tablet 20 mg PO DAILY #90 tab 07/13/21 atorvastatin 80 mg tablet See Rx Instructions .ROUTE 08/10/21 .COMPLEX #90 tab metformin 1,000 mg tablet 500 mg PO BID #180 tab 08/10/21 olanzapine 10 mg tablet See Rx Instructions .ROUTE 08/10/21 .COMPLEX #90 tab testosterone cypionate 200 mg/mL 100 mg IM Q2W #10 ml 08/10/21 intramuscular oil fluticasone propionate 50 2 spray INTRANASAL DAILY PRN #16 g 08/11/21 mcg/actuation nasal spray,suspension sildenafil 100 mg tablet 100 mg PO DAILY PRN #10 tab 10/03/21 gabapentin 800 mg tablet 800 mg PO TID PRN #90 tab 10/11/21 lancets 33 gauge See Rx Instructions .ROUTE 11/28/21 .COMPLEX #300 each pantoprazole 40 mg tablet,delayed See Rx Instructions .ROUTE 11/28/21 release .COMPLEX #90 tab Mupirocin [Bactroban 2% Ointment 1 applicatio TP TID 7 Days #1 gm 11/30/21 22gm tube] Sulfamethoxazole/Trimethoprim 1 each PO BID 10 Days #20 tab 11/30/21 [Bactrim DS tablet] cephALEXin [cephALEXin 500mg 500 mg PO Q6H 10 Days #40 cap 11/30/21 capsule] lithium carbonate 300 mg capsule See Rx Instructions .ROUTE 12/07/21 .COMPLEX #90 cap metoprolol succinate 100 mg See Rx Instructions .ROUTE 12/28/21 tablet,extended release 24 hr .COMPLEX #90 tab cephALEXin [Cephalexin 500mg Tab] 500 mg PO BID 7 Days #14 tab 12/31/21 Allergies Allergy/AdvReac Type Severity Reaction Status Date / Time venom-honey bee Allergy Severe Anaphylaxis Verified 12/27/21 11:04 nickel Allergy Unknown Verified 12/27
--- NOTE | 2021-12-31 19:25 | XR_ITS ---
PROCEDURE INFORMATION: Exam: XR Right Tibia and Fibula Exam date and time: 12/31/2021 7:51 PM Age: 51 years old Clinical indication: Injury or trauma; Fall; Blunt trauma; Lower leg; Left TECHNIQUE: Imaging protocol: XR Right tibia and fibula. Views: 2 views. COMPARISON: CR LLR LOWER LEG-RT 04/23/2017 11:17 AM FINDINGS: Bones/joints: No acute displaced fracture. No dislocation. Mild osteoarthrosis of the knee joint. Soft tissues: There is proximal to mid anterior soft tissue swelling. No radiopaque foreign body. IMPRESSION: 1. No acute osseous finding. 2. Pretibial soft tissue swelling.
[2021-12-31 19:38] VITALS: BP 141/84; PULSE 76; RESP 18; TEMP 37.1; O2SAT 98
== END 2021-12-31 20:11 | disposition home or self-care (01) ==
PROVIDERS: Emergency Provider Nurse Practitioner Family; PCP Family Medicine
DX: S81.811A Laceration without foreign body, right lower leg, initial encounter (principal); R42 Dizziness and giddiness; R07.9 Chest pain, unspecified; R06.02 Shortness of breath; R94.31 Abnormal electrocardiogram [ECG] [EKG]; R53.82 Chronic fatigue, unspecified; I25.10 Atherosclerotic heart disease of native coronary artery without angina pectoris; J44.9 Chronic obstructive pulmonary disease, unspecified; F41.9 Anxiety disorder, unspecified; F17.210 Nicotine dependence, cigarettes, uncomplicated; Z79.84 Long term (current) use of oral hypoglycemic drugs; Z79.51 Long term (current) use of inhaled steroids; Z79.899 Other long term (current) drug therapy; Z91.030 Bee allergy status; Z91.048 Other nonmedicinal substance allergy status; Z82.49 Family history of ischemic heart disease and other diseases of the circulatory system; Z83.438 Family history of other disorder of lipoprotein metabolism and other lipidemia; Z83.3 Family history of diabetes mellitus; Z83.49 Family history of other endocrine, nutritional and metabolic diseases
CPT/HCPCS: 73590; 90471; 90715; 99213; G0463

== ENCOUNTER 2022-03-20 15:38 | Emergency (ER) | payer MEDICARE, SELFPAY ==
[2022-03-20 15:45] VITALS: BP 141/84; PULSE 82; RESP 17; TEMP 36.8; O2SAT 99; BMI 27.6
[2022-03-20 16:01] VITALS: BP 141/84; PULSE 82; RESP 17; TEMP 36.8; O2SAT 99
--- NOTE | 2022-03-20 16:44 | HMH.EDUTC ---
[facility] [place] Clinical Impression: Sinusitis Qualifiers: Sinusitis location: unspecified location Chronicity: unspecified Qualified Code(s): J32.9 - Chronic sinusitis, unspecified Disposition: Home, Self-Care Condition on Discharge: Good Instructions: Sinusitis, DI for Sinusitis Additional Instructions: *Monitor Temp, Over the counter Motrin or Tylenol as directed/as needed Tylenol every 4 hours and Motrin every 6 hours (as long as your family doctor has told you that you can take it) for fever or pain. and straight to ER if unable to lower temp less than 101.0 after medication given *Warm salt water gargles may help to soothe the throat *Throat Lozenges *Warm fluids like tea with honey may help to soothe the throat *Sleep elevated *Humidifier/Vaporizer Take medication as prescribed Return if needed Straight to ER if any life threatening symptoms Follow up IMMEDIATELY for new or worsening symptoms or no Noticeable improvement over the next 48-72 hours. 911 for difficulty breathing or swallowing Prescriptions: Amoxicillin/Potassium Clav [Amox-Clav 875-125 mg Tablet] 1 tab PO BID #20 tab Transmission Status: Pending to [facility] Referrals: Pineda Glover MD [Primary Care Provider] - As needed Time of Disposition: 16:56 Medical Decision Making - Chidi Inquiry Pt receiving controlled substance: No Chidi was queried for this patient: No Vital Signs: 03/20/22 15:45 03/20/22 16:01 Temperature 98.3 F 98.3 F Temperature Source Oral Pulse Rate 82 Pulse Rate [Right Brachial] 82 Respiratory Rate 17 17 Blood Pressure 141/84 H Blood Pressure [Right Arm] 141/84 H Blood Pressure Mean [Right Arm] 103 Blood Pressure Source [Right Arm] Automatic Cuff Blood Pressure Position [Right Arm] Sitting 02 Sat by Pulse Oximetry 99 Oxygen Delivery Method Room Air Medical Decision Narrative: Patient states that he has taken augmentin before without complications or reactions [facility] [place] HPI - General Stated complaint: sore throat,cough,diarrhea Time Seen by Provider: 03/20/22 16:44 Mode of Arrival: Ambulatory Source of Information: Patient Limitations: No Limitations Description of Symptoms (Recalled from Triage Doc. by RN): PATIENT C/O CHEST CONGESTION AND WET COUGH HEENT Symptoms (Recalled from RN notes): No Resp Symptoms (Recalled from RN notes): Yes Skin Symptoms (Recalled from RN notes): No MS Symptoms (Recalled from RN notes): No Functional Status (Recalled from RN notes): WNL - History of Present Illness Provider Complaint: Patient states that he has been having sinus pain and pressure, cough, sore throat and diarrhea States that he has nasty stuff running down the back of his throat States that today he felt pressure behind his eyes so he came in to get checked out - Related Data Home Medications Medication Instructions Recorded Confirmed oxybutynin chloride 5 mg tablet 5 mg PO DAILY tab 11/06/21 01/15/22 Previous Rx's Medication Instructions Recorded blood sugar diagnostic See Dose Instructions .ROUTE 05/28/19 .MEDSUPPLY #50 each hydrochlorothiazide 25 mg tablet 25 mg PO DAILY #90 tab 03/14/21 famotidine 20 mg tablet 20 mg PO DAILY #30 tab 04/24/21 ranolazine 500 mg tablet,extended 500 mg PO BID #60 tab 04/24/21 release,12 hr escitalopram oxalate 20 mg tablet 20 mg PO DAILY #90 tab 07/13/21 atorvastatin 80 mg tablet See Rx Instructions .ROUTE 08/10/21 .COMPLEX #90 tab metformin 1,000 mg tablet 500 mg PO BID #180 tab 08/10/21 olanzapine 10 mg tablet See Rx Instructions .ROUTE 08/10/21 .COMPLEX #90 tab testosterone cypionate 200 mg/mL 100 mg IM Q2W #10 ml 08/10/21 intramuscular oil fluticasone propionate 50 2 spray INTRANASAL DAILY PRN #16 g 08/11/21 mcg/actuation nasal spray,suspension sildenafil 100 mg tablet 100 mg PO DAILY PRN #10 tab 10/03/21 Sulfamethoxazole/Trimethoprim 1 each PO BID 10 Days #20 tab 11/30/21 [Bactrim DS tablet] cephALEXin
== END 2022-03-20 16:59 | disposition home or self-care (01) ==
PROVIDERS: Emergency Provider Nurse Practitioner; PCP Family Medicine
DX: J32.9 Chronic sinusitis, unspecified (principal)
CPT/HCPCS: 99212; G0463

== ENCOUNTER → 2022-05-04 06:23 | Outpatient (CLI) | payer MEDICARE, SELFPAY ==
[2022-05-03 18:31] LABS: Hemoglobin A1C 6.2 % (4.0-6.0)
[2022-05-12 18:20] LABS: Testosterone, Total, LC/MS 196 ng/dL (.)
== END ==
PROVIDERS: PCP Family Medicine; Visit Provider Family Medicine
DX: E11.9 Type 2 diabetes mellitus without complications (principal); R79.89 Other specified abnormal findings of blood chemistry; Z79.84 Long term (current) use of oral hypoglycemic drugs
CPT/HCPCS: 83036; 84403

== ENCOUNTER → 2022-08-14 15:01 | Outpatient (CLI) | payer MEDICARE, SELFPAY ==
[2022-08-14 21:43] LABS: Hemoglobin A1C 6.7 % (4.0-6.0)
[2022-08-16 08:16] LABS: Testosterone,Total 451 ng/dL (264-916)
== END ==
PROVIDERS: PCP Family Medicine; Visit Provider Family Medicine
DX: E11.42 Type 2 diabetes mellitus with diabetic polyneuropathy (principal); S30.1XXA Contusion of abdominal wall, initial encounter; E34.9 Endocrine disorder, unspecified; Z79.84 Long term (current) use of oral hypoglycemic drugs
CPT/HCPCS: 83036; 84403

== ENCOUNTER → 2023-01-02 14:54 | Outpatient (CLI) | payer MEDICARE, SELFPAY ==
--- NOTE | 2023-01-02 15:01 | XR_ITS ---
FINAL REPORT CLINICAL HISTORY: SHOULDER PAIN FINDINGS: Right shoulder Three views were obtained. There is no acute fracture or dislocation. The joint spaces appear normal. No soft tissue abnormality is identified. IMPRESSION: No acute process. Reviewed, Interpreted and Dictated by Ronaldo Real MD Transcribed by Rachelle Olson Authenticated and [facility]
== END ==
PROVIDERS: PCP Family Medicine; Visit Provider Orthopaedic Surgery
DX: M25.611 Stiffness of right shoulder, not elsewhere classified (principal)
CPT/HCPCS: 73030

== ENCOUNTER → 2023-01-16 10:54 | Outpatient (CLI) | payer MEDICARE, SELFPAY ==
--- NOTE | 2023-01-16 10:54 | MR_ITS ---
FINAL REPORT CLINICAL HISTORY: pain with ROM FINDINGS: Multi planar MR imaging of the right shoulder was performed. There is abnormal signal at the insertion of the supraspinatus tendon consistent with a partial insertional tear. There is no abnormal fluid in the subacromial/subdeltoid bursa. The anterior and posterior glenoid cristobal appear intact. The biceps tendon appears intact. There are moderate hypertrophic changes at the AC joint. IMPRESSION: Partial insertional tear of the supraspinatus tendon. Reviewed, Interpreted and Dictated by Ronaldo Real MD Transcribed by Rachelle Olson Authenticated and [facility]
== END ==
LOC: RAD 10:54
PROVIDERS: PCP Family Medicine; Visit Provider Nurse Practitioner Family
DX: M25.611 Stiffness of right shoulder, not elsewhere classified (principal); M25.511 Pain in right shoulder
CPT/HCPCS: 73221

== ENCOUNTER → 2023-01-22 14:29 | Outpatient (CLI) | payer MEDICARE, SELFPAY ==
[2023-01-22 15:33] LABS: Basophils % 0.4 % (0.1-2.0); Eosinophils # 0.1 K/mm3 (0.0-0.4); Eosinophils % 0.8 % (0.1-12.0); Lymphocytes # 2.3 K/mm3 (0.7-4.5); Lymphocytes % 25.7 % (10-50); Mean Corpuscular Hemoglobin 31.7 pg (27.0-31.2); Mean Corpuscular Volume 93.2 fl (80-94); Mean Platelet Volume 8.4 fl (7.4-10.4); Monocytes # 0.7 K/mm3 (0.1-1.0); Monocytes % 8.3 % (1.7-9.3); Neutrophils # 5.7 K/mm3 (1.8-7.8); Neutrophils % 64.8 % (37.0-80.0); Platelet Count 306 K/mm3 (142-424); Red Blood Count 4.72 M/mm3 (4.60-6.20); Red Cell Distribution Width 14.3 % (11.5-17.5); White Blood Count 8.8 K/mm3 (4.8-10.8)
[2023-01-22 15:49] LABS: Chloride 99 mmol/L (98-107); Sodium 135 mmol/L (136-145)
[2023-01-22 15:50] LABS: Potassium 3.9 mmoL/L (3.5-5.1)
[2023-01-22 15:52] LABS: Alanine Aminotransferase 30 U/L (12-78); Albumin Level 4.2 g/dl (3.5-5.0); Albumin/Globulin Ratio 1.8 (1.1-1.8); Alkaline Phosphatase 87 U/L (38-126); Anion Gap 15.9 mEq/L (5-15); Aspartate Amino Transferase 29 U/L (17-59); Bilirubin,Total 0.3 mg/dl (0.2-1.3); Blood Urea Nitrogen 20 mg/dl (9-20); Calcium 8.7 mg/dl (8.4-10.2); Carbon Dioxide 24 mmol/L (22.0-30.0); Cholesterol 140 mg/dl (140-200); Estimated Glomerular Filt Rate 58 ml/min (>60); GFR (African American) 70 ML/MIN (>60); Globulin 2.4 g/dL (1.3-3.2); Glucose 77 mg/dl (74-100); Total Protein,Serum 6.6 g/dl (6.3-8.2)
[2023-01-22 15:53] LABS: HDL Cholesterol 28 mg/dl (40-60)
[2023-01-22 16:03] LABS: Direct LDL Cholesterol 58.54 mg/dL (100-129)
[2023-01-22 16:12] LABS: Triglycerides 884 mg/dl (30-150)
[2023-01-24 12:27] LABS: T4 (Thyroxine) 10.4 ug/dl (5.53-11.0)
[2023-01-24 12:40] LABS: Thyroid Stimulating Hormone 0.55 uIU/mL (0.465-4.68)
[2023-01-24 14:01] LABS: Free Thyroxine Index 3.4 ug/dL (5.93-13.13); Triiodothryronine (T3) Uptake 33 % (23.5-40.5)
== END ==
PROVIDERS: PCP Family Medicine; Visit Provider Nurse Practitioner Family
DX: I10 Essential (primary) hypertension (principal); E11.42 Type 2 diabetes mellitus with diabetic polyneuropathy; Z79.84 Long term (current) use of oral hypoglycemic drugs; Z79.899 Other long term (current) drug therapy
CPT/HCPCS: 36415; 80053; 80061; 83036; 84436; 84443; 84479; 85025

== ENCOUNTER → 2023-01-24 10:30 | Outpatient (CLI) | payer MEDICARE, SELFPAY ==
[2023-01-24 15:01] LABS: Hemoglobin A1C 7.4 % (4.0-6.0)
[2023-01-24 15:33] LABS: Free Thyroxine Index 2.9 ug/dL (5.93-13.13); T4 (Thyroxine) 9.2 ug/dl (5.53-11.0); Triiodothryronine (T3) Uptake 31 % (23.5-40.5)
[2023-01-24 15:46] LABS: Thyroid Stimulating Hormone 0.74 uIU/mL (0.465-4.68)
[2023-01-24 17:19] LABS: Chloride 97 mmol/L (98-107)
[2023-01-24 17:20] LABS: Potassium 4.3 mmoL/L (3.5-5.1); Sodium 137 mmol/L (136-145)
[2023-01-24 17:22] LABS: Alanine Aminotransferase 30 U/L (12-78); Alkaline Phosphatase 76 U/L (38-126); Anion Gap 17.3 mEq/L (5-15); Aspartate Amino Transferase 29 U/L (17-59); Bilirubin,Total 0.3 mg/dl (0.2-1.3); Blood Urea Nitrogen 21 mg/dl (9-20); Carbon Dioxide 27 mmol/L (22.0-30.0); Estimated Glomerular Filt Rate 64 ml/min (>60); GFR (African American) 77 ML/MIN (>60)
[2023-01-24 17:23] LABS: Albumin Level 4.3 g/dl (3.5-5.0); Albumin/Globulin Ratio 1.7 (1.1-1.8); Calcium 8.8 mg/dl (8.4-10.2); Globulin 2.5 g/dL (1.3-3.2); Glucose 247 mg/dl (74-100); Total Protein,Serum 6.8 g/dl (6.3-8.2)
[2023-01-24 18:04] LABS: Triglycerides 337 mg/dl (30-150)
== END ==
PROVIDERS: PCP Nurse Practitioner Family; Visit Provider Nurse Practitioner Family
DX: E11.42 Type 2 diabetes mellitus with diabetic polyneuropathy (principal); Z79.84 Long term (current) use of oral hypoglycemic drugs
CPT/HCPCS: 80053; 83036; 84436; 84443; 84478; 84479

== ENCOUNTER → 2023-03-07 13:12 | Outpatient (CLI) | payer MEDICARE, SELFPAY ==
[2023-03-07 14:27] VITALS: BMI 29.9
[2023-03-07 18:19] LABS: Chloride 96 mmol/L (98-107); Potassium 3.3 mmoL/L (3.5-5.1); Sodium 135 mmol/L (136-145)
[2023-03-07 18:21] LABS: Blood Urea Nitrogen 20 mg/dl (9-20); Creatinine Clearance Estimated 77 mL/min (50-200); Estimated Glomerular Filt Rate 49 ml/min (>60); GFR (African American) 59 ML/MIN (>60)
[2023-03-07 18:22] LABS: Alanine Aminotransferase 41 U/L (12-78); Albumin Level 4.2 g/dl (3.5-5.0); Albumin/Globulin Ratio 1.6 (1.1-1.8); Alkaline Phosphatase 58 U/L (38-126); Anion Gap 17.3 mEq/L (5-15); Aspartate Amino Transferase 38 U/L (17-59); Bilirubin,Total 0.3 mg/dl (0.2-1.3); Calcium 8.9 mg/dl (8.4-10.2); Carbon Dioxide 25 mmol/L (22.0-30.0); Globulin 2.6 g/dL (1.3-3.2); Glucose 207 mg/dl (74-100); Total Protein,Serum 6.8 g/dl (6.3-8.2)
[2023-03-07 18:23] LABS: Basophils % 0.2 % (0.1-2.0); Eosinophils # 0.1 K/mm3 (0.0-0.4); Eosinophils % 0.6 % (0.1-12.0); Hematocrit 41.8 % (42.0-52.0); Hemoglobin 13.5 g/dL (14.1-18.0); Lymphocytes # 1.6 K/mm3 (0.7-4.5); Lymphocytes % 19.4 % (10-50); Mean Corpuscular HGB Conc 32.4 g/dL (31.8-35.4); Mean Corpuscular Hemoglobin 30.8 pg (27.0-31.2); Mean Corpuscular Volume 94.9 fl (80-94); Mean Platelet Volume 8.1 fl (7.4-10.4); Monocytes # 0.5 K/mm3 (0.1-1.0); Monocytes % 5.6 % (1.7-9.3); Neutrophils % 74.2 % (37.0-80.0); Platelet Count 340 K/mm3 (142-424); Red Cell Distribution Width 14.2 % (11.5-17.5); White Blood Count 8.2 K/mm3 (4.8-10.8)
[2023-03-07 18:28] LABS: C-Reactive Protein 19.7 mg/L (0-4)
[2023-03-07 18:52] LABS: Erythrocyte Sedimentation Rate 16 mm/hr (0-20)
[2023-03-09 10:17] LABS: RA Latex Turbid. <10.0 IU/mL (<14.0)
[2023-03-09 12:10] LABS: Anti-Cyclic Citrullinated Pept 1 units (0-19)
[2023-03-12 16:13] LABS: Anti-Centromere B Antibodies <0.2 AI (0.0-0.9); Anti-DNA (DS) Ab Qn 5 IU/mL (0-9); Anti-Jo-1 <0.2 AI (0.0-0.9); Anti-Smith Antibody <0.2 AI (0.0-0.9); Antichromatin Antibodies <0.2 AI (0.0-0.9); Antiscleroderma-70 Antibodies 0.5 AI (0.0-0.9); RNP Antibodies 0.5 AI (0.0-0.9); Sjogren's Anti-SS-A <0.2 AI (0.0-0.9); Sjogren's Anti-SS-B <0.2 AI (0.0-0.9)
== END ==
PROVIDERS: Nurse Practitioner Family; PCP Family Medicine; Visit Provider Nurse Practitioner Family
DX: I10 Essential (primary) hypertension (principal); R60.9 Edema, unspecified; E11.9 Type 2 diabetes mellitus without complications; Z71.3 Dietary counseling and surveillance; Z79.84 Long term (current) use of oral hypoglycemic drugs
CPT/HCPCS: 80053; 85025; 85651; 86140; 86200; 86225; 86235; 86431; 97802

== ENCOUNTER → 2023-03-07 23:12 | Outpatient (CLI) | payer MEDICARE, SELFPAY | PROVIDERS: PCP Nurse Practitioner Family; Visit Provider Nurse Practitioner Family | DX: I10 Essential (primary) hypertension (principal); R60.9 Edema, unspecified ==

== ENCOUNTER 2023-03-20 15:37 | Emergency (ER) | payer MEDICARE, SELFPAY ==
[2023-03-20 15:38] VITALS: BP 146/79; PULSE 94; RESP 16; TEMP 36.7; O2SAT 96; BMI 30.1
--- NOTE | 2023-03-20 16:08 | EXP.UTC ---
Discharge Plan Disposition Patient Disposition: Home Health Service Condition: Good Prescriptions Prescriptions: New mupirocin 2 % ointment 1 applic topical TID 7 Days Qty: 15 0RF amoxicillin-pot clavulanate 875-125 mg Tablet 1 tab PO Q12H Qty: 20 0RF No Action losartan 100 mg tablet 100 mg PO DAILY Januvia 100 mg tablet 100 mg PO DAILY Qty: 30 2RF atorvastatin 40 mg tablet 40 mg PO DAILY Qty: 30 2RF metformin 1,000 mg tablet 1,000 mg PO BID Qty: 90 0RF gabapentin 800 mg tablet 800 mg PO TID PRN (Reason: neuropathy) Qty: 90 2RF potassium chloride 20 mEq tablet extended release 20 meq PO DAILY Qty: 5 0RF Rx Instructions: take one tablet daily for 5 days testosterone cypionate [Depo-Testosterone] 200 mg/mL oil 200 mg IM Q2W Qty: 10 1RF sildenafil 100 mg tablet 100 mg PO DAILY PRN (Reason: sexual activity) Qty: 10 10RF Rx Instructions: administer 30 minutes to 4 hours before activity fluoxetine [Prozac] 20 mg capsule 20 mg PO DAILY Qty: 90 3RF albuterol sulfate 90 mcg/actuation HFA aerosol inhaler 2 puff inhalation QID PRN (Reason: shortness of breath or wheezing) Qty: 8.5 6RF glimepiride [Amaryl] 2 mg tablet 2 mg PO DAILY famotidine [Pepcid] 20 mg tablet 20 mg PO DAILY Qty: 30 3RF fluticasone propionate 50 mcg/actuation spray,suspension 2 spray INTRANASAL DAILY PRN (Reason: allergy symptoms) Qty: 16 10RF Rx Instructions: administer into each nostril (DME) blood-glucose meter [True Metrix Glucose Meter] Misc See Rx Instructions .ROUTE .COMPLEX Qty: 1 0RF Dose Instruction: USE DIRECTED Rx Instructions: USE DIRECTED alcohol swabs [DropSafe Alcohol Prep Pads] Pads, Medicated See Rx Instructions .ROUTE .COMPLEX Qty: 300 0RF Dose Instruction: USE TOPICALLY NEEDED Rx Instructions: USE TOPICALLY NEEDED pantoprazole 40 mg tablet,delayed release (DR/EC) See Rx Instructions .ROUTE .COMPLEX Qty: 90 0RF Dose Instruction: TAKE 1 TABLET DAILY FOR STOMACH Rx Instructions: TAKE 1 TABLET DAILY FOR STOMACH (DME) lancets [TRUEplus Lancets] 33 gauge misc See Rx Instructions .ROUTE .COMPLEX Qty: 300 0RF Dose Instruction: USE DIRECTED Rx Instructions: USE DIRECTED metoprolol succinate 100 mg tablet extended release 24 hr See Rx Instructions .ROUTE .COMPLEX Qty: 90 0RF Dose Instruction: TAKE 1 TABLET EVERY DAY Rx Instructions: TAKE 1 TABLET EVERY DAY furosemide 40 mg tablet See Rx Instructions .ROUTE .COMPLEX Qty: 60 2RF Dose Instruction: TAKE ONE TABLET BY MOUTH 2 TIMES A DAY NEEDED FOR FLUID Rx Instructions: TAKE ONE TABLET BY MOUTH 2 TIMES A DAY NEEDED FOR FLUID ranolazine 500 mg tablet extended release 12 hr See Rx Instructions .ROUTE .COMPLEX Qty: 60 3RF Dose Instruction: TAKE ONE TABLET BY MOUTH 2 TIMES A DAY Rx Instructions: TAKE ONE TABLET BY MOUTH 2 TIMES A DAY bupropion HCl 150 mg tablet sustained-release 12 hr See Rx Instructions .ROUTE .COMPLEX Qty: 60 0RF Dose Instruction: TAKE ONE TABLET BY MOUTH 2 TIMES A DAY Rx Instructions: TAKE ONE TABLET BY MOUTH 2 TIMES A DAY olanzapine 15 mg tablet See Rx Instructions .ROUTE .COMPLEX Qty: 30 0RF Dose Instruction: TAKE ONE TABLET BY MOUTH ONCE A DAY Rx Instructions: TAKE ONE TABLET BY MOUTH ONCE A DAY hydrochlorothiazide 25 mg tablet See Rx Instructions .ROUTE .COMPLEX Qty: 90 0RF Dose Instruction: TAKE 1 TABLET EVERY DAY Rx Instructions: TAKE 1 TABLET EVERY DAY Referrals Follow up/Referrals: Pineda Glover MD [Primary Care Provider] - See instructions Geovanna Encarnacion DPM [Staff Physician] - See instructions Activity Restrictions/Add. Instructions Additional Instructions/Restrictions: Keep the wound clean and dry. Watch the wounds for signs of infection, such a
[2023-03-20 16:32] VITALS: BP 146/79; PULSE 94; RESP 16; TEMP 36.7; O2SAT 96
== END 2023-03-20 16:33 | disposition home health service (06) ==
PROVIDERS: Emergency Provider Nurse Practitioner Family; PCP Family Medicine
DX: L03.031 Cellulitis of right toe (principal); E11.9 Type 2 diabetes mellitus without complications; F17.210 Nicotine dependence, cigarettes, uncomplicated; I25.10 Atherosclerotic heart disease of native coronary artery without angina pectoris; Z79.84 Long term (current) use of oral hypoglycemic drugs; I11.9 Hypertensive heart disease without heart failure
CPT/HCPCS: 99212; 99214; G0463

== ENCOUNTER 2023-04-10 14:00 | Outpatient (RCR) | payer MEDICARE, SELFPAY ==
--- NOTE | 2023-03-15 11:34 | HMH.PTOPEV ---
PT Outpatient Evaluation Rehab PT Outpatient Evaluation Start: 03/15/23 09:47 Freq: Status: Active Protocol: Document 03/15/23 09:48 KALPANA (Rec: 03/15/23 11:34 KALPANA [id number]) E-signed By Inna Pitts, PT Outpatient Therapy Subjective History Subjective History Pt is a 52 y/o male who reports onset of right shoulder pain a little over a month ago. Pt reports he over extended his shoulder while using the elliptical with immediate onset of R lateral shoulder pain and numbness. Pt reports he was unable to lift or reach with the R arm initially. Pt reports he went to the doctor and was prescribed a steroid pack and Ibuprofen which helped with pain. Pt states he is now able to lift his arm better but it causes pain. Pt had a right shoulder xray on 01/02/23 without acute findings and a MRI on 01/16/23 with impression of right partial insertional tear of the supraspinatus. Pt also reports onset of tingling of the right pinky and ring finger today, denies paresthesia prior to today. Pt denies neck pain. Pt reports both hands and feet have been swelling recently and he has contacted his doctor about this. 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: R hand 37.3#, L hand 42# Chief Complaint Pain,Paresthesia,Weakness Symptom Type Ache,Sharp,Dull,Numbness, Tingling Symptoms Relieved By Rest/Positioning,Ice, Prescription Meds Symptoms Aggravated By Physical Activity,Lifting Prior Functional Limitations None Current Functional Limitations Reaching,Lifting,Housework, Dressing Symptom Description Intermittent Level of pain today (0-10) 0 Pain scale - at its best (0-10) 0 Pain scale - at its worst (0-10) 4 Cervical Eval Palpation Cervical Muscles R Cervical Paraspinal,R Upper Trapezius,L Upper Trapezius Cervical/Thoracic Palpation Findings Tenderness Posture Head/C-Spine Posture Standing Position Flexed Flexibility Deficits Upper Trapezius Muscle Length (R) Moderate Tightness Levaetor Scapulae Muscle Length (R) Moderate Tightness Pectoralis Major Muscle Length (R) Moderate Tightness Pectoralis Minor Muscle Length (R) Moderate Tightness Passive Joint Mobility Cervical PIVM Dec: R C5/6 L C5/6 R C6/7 L C6/7 R C7/T1 L C7/T1 AROM Cervical Spine Extension Active Range of 30 Motion (degrees) Cervical Spine Flexion Active Range of 45 Motion (degrees) Cervical Spine Right Lateral Flexion 50 Active Range of Motion (degrees) Cervical Spine Left Lateral Flexion 50 Active Range of Motion (degrees) MMT Right Biceps Brachii Strength Grade 4 Good Wrist Extension Strength Grade 4 Good Altered Sensation Upper extremity Dermatomes C4,C5,C6,C7,C8,T1 Comment decreased light touch sensation compared to left Special Test C-Spine Foraminal Compression ([place]) Negative Right Test C-spine Verterbral Accessory Movements Central P/A [place],Right P/A that Elicit Symptoms [place] C-Spine Compression Test Negative Right Shoulder/Elbow Eval Shoulder Objective Measurements Palpation Tenderness tenderness shoulder exam standard right tenderness over the bicipital tendon right shoulder exam standard Shoulder Palpation Findings Tenderness Shoulder Palpation Overall Comment also R latissimus and pec TTP Shoulder ROM Right Shoulder ROM Limitations Pain Shoulder Abduction Active Range of 85 Motion (degrees) Shoulder Abduction Passive Range of 180 Motion (degrees) Shoulder Flexion Active Range of Motion 115 (degrees) Query Text: Shoulder Flexion Passive Range of Motion 180 (degrees) Shoulder External Rotation Active Range 40 of Motion (degrees) Shoulder External Rotation Passive Range 90 of Motion (degrees) Shoulder Internal Rotation Active Range 55 of Motion (degrees) Shoulder Internal Rotation Passive Range 70 of Motion (degrees) pain with active ROM shoulder exam right standard pain with passive ROM shoulder exam right standard decreased ROM shoulder exam standard right Shoulder MMT Lower Trapezius Strength Grade 4- Good- Middle Trapezius Strength Grade 4- Good- Shoulder Abduction Strength Grade 3+ Fair+ Shoulder Flexion Strength Grade 4- Good- Shoulder External Rotation Strength 4- Good- Grade Shoulder Internal Rotation Strength 4 Good Grade Shoulder Special Tests impingement sign present shoulder exam right standard Shoulder Drop Arm Test Negative Right Shoulder Cross-Over Impingement Test Positive Right Shoulder Empty Can (Supraspinatus) Test Positive Right Shoulder Berman-Liang Impingement Positive Right Test Shoulder [place] Test Negative Right Shoulder Speed's Sign Test Negative Right Elbow Objective Measurements Elbow Special Tests Elbow Tinel's Sign Negative Right Outpatient Therapy Assessment Impairments Problems/Impairmments Palpation Tenderness,Impaired Range of Motion,Impaired Strength,Impaired Lifting, Impaired Dressing,Impaired Shower/Bathing,Impaired Household Care,Impaired Recreational Activities, Subjective C/O Pain,Impaired Self Care/Self Management Prognosis Rehab Potential Good Clinical Impression Consistent with Diagnosis Yes Short Term Goals Number of Weeks 3 Increase Range of Motion Yes: Improve R shoulder elevation to at least to at least 120 Increase Strength Yes: Improve R shoulder/ scapular MMT by half grade Improve Self Care/Self Management Yes Patient to be Ind w/ 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 Number of Weeks 6 Decreased Palpation Tenderness Yes: Mild-no TTP of R shoulder complex and cervical mm Increase Range of Motion Yes: Improve R shoulder elevation to at least 160 Increase Strength Yes: Improve R shoulder/ scapular MMT to 4-4+/5 grossly Restore Ability to Lift Objects to Yes: 5# with pain 2/10 or less Shoulder Level to assist with ADLs Improve Ability to Dress Self Yes: Pt will be able to don belt/jacket with pain 2/10 or less Improve Ability to Shower/Bathe Self Yes: Pt will be able to wash axilla region with pain 2/10 or less Decrease Subjective C/O Pain Yes: Improve pain at worst to 0-2/10 to improve overall QOL Patient to be Ind w/ Advanced HEP Yes Outpatient Therapy Plan of Care Treatment Plan May Include Therapeutic Exercise Including Home Yes Exercise Program Manual Therapy Techniques Yes Neuromuscular Re-education Yes Therapeutic Activities to Return to Yes Previous Functional/Work Level ADL/Self Care Education Yes Dry Needling Yes Thermal Modalities Yes Electrical Stimulation Yes Ultrasound/Phonophoresis Yes Iontophoresis Yes Vasopneumatic Compression Pump Yes Massage Yes Group Therapy for Medicare Yes Eval/Re-Eval Yes Frequency Times per week 2 Duration Number of Weeks 4-6 Addendums This patient is a candidate for social No or vocational rehab? Patient/Guardian verbally acknowledges Yes understanding of treatment program and consents to further treatment? Patient/Guardian verbally acknowledges Yes understanding of diagnosis, prognosis and goals for treatment? G -code Required No Eval Complexity PT Charges 82899 - Moderate Complexity PHYSICIAN CERTIFICATION: I certify the specified therapy services for [facility] are required, authorized, and reviewed every 30 days.
== END 2023-04-10 15:00 | disposition home or self-care (01) ==
LOC: PT 14:00
PROVIDERS: PCP Nurse Practitioner Family; Visit Provider Family Medicine
DX: M75.101 Unspecified rotator cuff tear or rupture of right shoulder, not specified as traumatic (principal)
CPT/HCPCS: 97110; 97163; 97530

== ENCOUNTER 2023-11-18 22:12 | Outpatient (CLI) | payer MEDICARE, SELFPAY ==
[2023-11-18 18:55] LABS: Alanine Aminotransferase 33 U/L (12-78); Albumin Level 4.3 g/dl (3.5-5.0); Albumin/Globulin Ratio 1.6 (1.1-1.8); Alkaline Phosphatase 88 U/L (38-126); Anion Gap 10.1 mEq/L (5-15); Aspartate Amino Transferase 38 U/L (17-59); Bilirubin,Total 0.5 mg/dl (0.2-1.3); Blood Urea Nitrogen 22 mg/dl (9-20); Calcium 9.4 mg/dl (8.4-10.2); Carbon Dioxide 27 mmol/L (22.0-30.0); Chloride 102 mmol/L (98-107); Chol/HDL Ratio 5.8 (1-3.5); Cholesterol 193 mg/dl (140-200); Estimated Glomerular Filt Rate 53 ml/min (>60); GFR (African American) 64 ML/MIN (>60); Globulin 2.7 g/dL (1.3-3.2); Glucose 92 mg/dl (74-100); HDL Cholesterol 33 mg/dl (40-60); Potassium 4.1 mmoL/L (3.5-5.1); Sodium 135 mmol/L (136-145)
[2023-11-18 18:56] LABS: Triglycerides 419 mg/dl (30-150)
[2023-11-18 19:06] LABS: Direct LDL Cholesterol 94.62 mg/dL (100-129)
[2023-11-18 19:18] LABS: Hemoglobin A1C 5.8 % (4.0-6.0)
[2023-11-18 19:26] LABS: Prostate Specific Ag Screen 0.2 ng/ml (0.0-4.0)
== END 2023-11-18 23:59 ==
LOC: LAB.DROPOF 22:13
PROVIDERS: PCP Family Medicine; Visit Provider Family Medicine
DX: E11.9 Type 2 diabetes mellitus without complications (principal); E78.5 Hyperlipidemia, unspecified; Z12.5 Encounter for screening for malignant neoplasm of prostate; Z79.84 Long term (current) use of oral hypoglycemic drugs
CPT/HCPCS: 80053; 80061; 83036; G0103

== ENCOUNTER 2024-02-03 18:00 | Outpatient (CLI) | payer MEDICARE, SELFPAY ==
[2024-02-03 19:56] LABS: Chloride 106 mmol/L (98-107); Hemoglobin A1C 6.2 % (4.0-6.0); Potassium 4.3 mmoL/L (3.5-5.1); Sodium 136 mmol/L (136-145)
[2024-02-03 19:58] LABS: Alanine Aminotransferase 42 U/L (12-78); Aspartate Amino Transferase 29 U/L (17-59); Blood Urea Nitrogen 16 mg/dl (9-20); Estimated Glomerular Filt Rate 63 ml/min (>60); GFR (African American) 77 ML/MIN (>60)
[2024-02-03 19:59] LABS: Albumin Level 4.2 g/dl (3.5-5.0); Albumin/Globulin Ratio 1.8 (1.1-1.8); Alkaline Phosphatase 77 U/L (38-126); Anion Gap 11.3 mEq/L (5-15); Bilirubin,Total 0.5 mg/dl (0.2-1.3); Calcium 9.1 mg/dl (8.4-10.2); Carbon Dioxide 23 mmol/L (22.0-30.0); Globulin 2.4 g/dL (1.3-3.2); Glucose 102 mg/dl (74-100); Total Protein,Serum 6.6 g/dl (6.3-8.2)
== END 2024-02-03 23:59 | disposition home or self-care (01) ==
LOC: LAB.DROPOF 02-04 10:22
PROVIDERS: PCP Family Medicine; Visit Provider Family Medicine
DX: E11.42 Type 2 diabetes mellitus with diabetic polyneuropathy (principal); Z79.84 Long term (current) use of oral hypoglycemic drugs
CPT/HCPCS: 80053; 83036

== ENCOUNTER 2024-05-01 15:00 | Outpatient (CLI) | payer MEDICARE, SELFPAY ==
[2024-05-01 18:39] LABS: Basophils # 0.1 K/mm3 (0-0.2); Basophils % 0.8 % (0.1-2.0); Eosinophils % 0.5 % (0.1-12.0); Hematocrit 46.7 % (42.0-52.0); Hemoglobin 15.8 g/dL (14.1-18.0); Lymphocytes # 1.6 K/mm3 (0.7-4.5); Lymphocytes % 24.1 % (10-50); Mean Corpuscular HGB Conc 33.8 g/dL (31.8-35.4); Mean Corpuscular Hemoglobin 32.3 pg (27.0-31.2); Mean Corpuscular Volume 95.4 fl (80-94); Mean Platelet Volume 8.7 fl (7.4-10.4); Monocytes # 0.4 K/mm3 (0.1-1.0); Monocytes % 6.6 % (1.7-9.3); Neutrophils # 4.6 K/mm3 (1.8-7.8); Neutrophils % 67.9 % (37.0-80.0); Platelet Count 248 K/mm3 (142-424); Red Cell Distribution Width 14.5 % (11.5-17.5); White Blood Count 6.8 K/mm3 (4.8-10.8)
[2024-05-01 18:42] LABS: Chloride 111 mmol/L (98-107); Potassium 4.5 mmoL/L (3.5-5.1); Sodium 140 mmol/L (136-145)
[2024-05-01 18:44] LABS: Alanine Aminotransferase 30 U/L (12-78); Albumin Level 4.2 g/dl (3.5-5.0); Albumin/Globulin Ratio 1.5 (1.1-1.8); Alkaline Phosphatase 83 U/L (38-126); Anion Gap 11.5 mEq/L (5-15); Aspartate Amino Transferase 26 U/L (17-59); Bilirubin,Total 0.4 mg/dl (0.2-1.3); Blood Urea Nitrogen 11 mg/dl (9-20); Carbon Dioxide 22 mmol/L (22.0-30.0); Estimated Glomerular Filt Rate 78 ml/min (>60); GFR (African American) 95 ML/MIN (>60); Globulin 2.8 g/dL (1.3-3.2)
[2024-05-01 18:45] LABS: Calcium 9.2 mg/dl (8.4-10.2); Chol/HDL Ratio 3.9 (1-3.5); Cholesterol 146 mg/dl (140-200); Glucose 89 mg/dl (74-100); HDL Cholesterol 37 mg/dl (40-60); Triglycerides 269 mg/dl (30-150); VLDL Cholesterol 54 mg/dL (0-40)
[2024-05-01 18:56] LABS: Direct LDL Cholesterol 71.28 mg/dL (100-129)
[2024-05-01 19:15] LABS: Hemoglobin A1C 5.6 % (4.0-6.0)
== END 2024-05-01 23:59 | disposition home or self-care (01) ==
LOC: LAB.DROPOF 05-04 10:34
PROVIDERS: PCP Family Medicine; Visit Provider Family Medicine
DX: E11.42 Type 2 diabetes mellitus with diabetic polyneuropathy (principal)
CPT/HCPCS: 80053; 80061; 83036; 85025

== ENCOUNTER 2024-06-06 13:42 | Outpatient (CLI) | payer MEDICARE, SELFPAY | END 2024-06-06 23:59 | disposition home or self-care (01) | LOC: LAB 13:42 | PROVIDERS: PCP Family Medicine; Visit Provider Family Medicine | DX: Z02.9 Encounter for administrative examinations, unspecified (principal) ==

== ENCOUNTER 2024-06-07 16:21 | Outpatient (CLI) | payer MEDICARE, SELFPAY ==
[2024-06-07 16:52] LABS: Adenovirus F 40/41, stool Not Detected (NotDetected); Astrovirus Not Detected (NotDetected); Campylobacter Not Detected (NotDetected); Clostridium Difficile A/B, PCR Not Detected (NotDetected); Cryptosporidium Not Detected (NotDetected); Cyclospora Cayetanesis Not Detected (NotDetected); Entamoeba histolytica Not Detected (NotDetected); Enteroaggregative E coli Not Detected (NotDetected); Enteropathogenic E coli Not Detected (NotDetected); Enterotoxigenic E coli Not Detected (NotDetected); Giardia lamblia Not Detected (NotDetected); Norovirus Not Detected (NotDetected); Plesimonas Shigalloides, PCR Not Detected (NotDetected); Rotavirus A Not Detected (NotDetected); Salmonella, PCR Not Detected (NotDetected); Sapovirus Not Detected (NotDetected); Shiga-like toxin E coli Not Detected (NotDetected); Shigella Enterovasive E coli Not Detected (NotDetected); Vibrio Cholerae Not Detected (NotDetected); Vibrio, PCR Not Detected (NotDetected); Yersinia Entercolitica, PCR Not Detected (NotDetected)
== END 2024-06-07 23:59 | disposition home or self-care (01) ==
LOC: LAB.DROPOF 16:24
PROVIDERS: PCP Family Medicine; Visit Provider Family Medicine
DX: R19.7 Diarrhea, unspecified (principal)
CPT/HCPCS: 87507

== ENCOUNTER 2024-06-12 12:47 | Outpatient (CLI) | payer MEDICARE, SELFPAY ==
[2024-06-12 13:22] LABS: Blood Urea Nitrogen 8 mg/dl (9-20); Estimated Glomerular Filt Rate 88 ml/min (>60); GFR (African American) 107 ML/MIN (>60)
== END 2024-06-12 23:59 | disposition home or self-care (01) ==
LOC: LAB 12:54
PROVIDERS: PCP Family Medicine; Visit Provider Family Medicine
DX: R63.4 Abnormal weight loss (principal); Z68.28 Body mass index [BMI] 28.0-28.9, adult
CPT/HCPCS: 36415; 82565; 84520

== ENCOUNTER 2024-06-26 08:44 | Outpatient (CLI) | payer MEDICARE, SELFPAY ==
--- NOTE | 2024-06-26 08:45 | CT_ITS ---
FINAL REPORT TECHNIQUE: Axial CT images of the chest were obtained with contrast. Coronal and sagittal reformatted images were also obtained. This study was performed with techniques to keep radiation doses as low as reasonably achievable, (ALARA). Individualized dose reduction techniques using automated exposure control or adjustment of mA and/or KV according to the patient's size were employed. CLINICAL HISTORY: abd. pain; weight loss COMPARISON: None FINDINGS: CT CHEST WITH AND WITHOUT CONTRAST: There is no evidence of mediastinal or hilar mass or adenopathy. No axillary mass or adenopathy is identified. On lung window images, no pulmonary mass or dominant pulmonary nodule is identified. Mild changes of emphysema and mild scarring are present. Note is made of bilateral gynecomastia. No localized pulmonary inflammatory process is identified. Limited images of the upper abdomen reveal no mass or localized inflammatory process. IMPRESSION: Mild changes of emphysema and mild scarring. Bilateral gynecomastia. Reviewed, Interpreted and Dictated by Matt Ballard III, MD Transcribed by Liana Recio Authenticated and [facility]
--- NOTE | 2024-06-26 08:45 | CT_ITS ---
FINAL REPORT TECHNIQUE: Axial CT images of the abdomen and pelvis were obtained before and after the administration of IV contrast. This study was performed with techniques to keep radiation doses as low as reasonably achievable (ALARA). Individualized dose reduction techniques using automated exposure control or adjustment of mA and/or kV according to the patient's size were employed. CLINICAL HISTORY: Abdomen pain and weight loss. COMPARISON: None FINDINGS: Abdomen: The lung bases are clear. The heart is normal in size. There is a 20 mm low-attenuation focus in the medial segment of the left lobe of the liver, with a by 7 mm slightly more inferior focus of low-attenuation in the left hepatic lobe, there of uncertain etiology. These may represent focal masses or areas of focal fatty infiltration. . The spleen is unremarkable. No adrenal masses present. The pancreas has an unremarkable appearance. There is a 12 mm left renal cyst, no follow-up necessary. The aorta is normal in caliber. There is no free fluid or adenopathy. There is a small umbilical hernia containing fat. Precontrast images demonstrate no evidence of nephrolithiasis. Pelvis: The appendix is normal in appearance. The urinary bladder is distended, with adjacent stranding. There is a left inguinal hernia containing fat. No inflammatory process is seen. There is no evidence of mass or adenopathy. There is no evidence of bowel obstruction. Chronic left superior and inferior pubic rami fractures are noted. There is a sclerotic focus in the left posterior iliac wing, that may represent a bone island. IMPRESSION: 20 mm low-attenuation focus in the medial segment of the left hepatic lobe, with an adjacent 7 mm similar-appearing low-attenuation mass. The etiology is uncertain, but this may represent focal fatty infiltration although other masses are not excluded. Suggest liver mass protocol CT for further evaluation. Distended bladder, with adjacent stranding, a finding of uncertain significance. Suggest clinical correlation and possible follow-up. Sclerotic focus in the left iliac wing as described above, that may represent a bone island. Correlation with either follow-up imaging or a bone scan is suggested for further evaluation. Reviewed, Interpreted and Dictated by Matt Ballard III, MD Transcribed by Liana Recio Authenticated and [facility]
[2024-06-26] MEDS: IOPAMIDOL-370 (76%);100ML BOTTLE 75 ML IV (09:30)
[2024-06-26] MEDS: SODIUM CHLORIDE 0.9% 10ML SYR (RAD ONLY) 10 ML IV (09:30)
== END 2024-06-26 23:59 | disposition home or self-care (01) ==
LOC: RAD 08:45
PROVIDERS: PCP Family Medicine; Visit Provider Family Medicine
DX: R10.9 Unspecified abdominal pain (principal); R63.4 Abnormal weight loss
CPT/HCPCS: 71270; 74178; Q9967

== ENCOUNTER 2024-07-13 10:05 | Outpatient (CLI) | payer MEDICARE, SELFPAY ==
--- NOTE | 2024-07-13 10:06 | CT_ITS ---
FINAL REPORT TECHNIQUE: Pre- and postcontrast images of the abdomen were performed by computed tomography. Reconstructed images were obtained and reviewed. This study was performed with techniques to keep radiation doses as low as reasonably achievable (ALARA). Individualized dose reduction techniques using automated exposure control or adjustment of mA and/or kV according to the patient's size were employed. CLINICAL HISTORY: Mass/weight loss COMPARISON: 06/26/2024 FINDINGS: The lung bases are clear. The liver is homogeneous. Again identified are low-attenuation regions in the medial left lobe of the liver. This is less conspicuous than the prior exam. Finding appears curvilinear, possibly related to short segment ectatic duct. The spleen is unremarkable. The adrenals are normal. The pancreas is unremarkable. The kidneys enhance appropriately. IMPRESSION: Low attenuation region in the medial left lobe of the liver, may represent short segment ectatic duct. Consider ultrasound to better characterize. Reviewed, Interpreted and Dictated by Ronaldo Real MD Transcribed by Rachelle Olson Authenticated and [facility]
[2024-07-13] MEDS: SODIUM CHLORIDE 0.9% 10ML SYR (RAD ONLY) 10 ML IV (10:53)
[2024-07-13] MEDS: IOPAMIDOL-370 (76%);100ML BOTTLE 75 ML IV (10:54)
== END 2024-07-13 23:59 | disposition home or self-care (01) ==
LOC: RAD 10:06
PROVIDERS: PCP Family Medicine; Visit Provider Family Medicine
DX: R16.0 Hepatomegaly, not elsewhere classified (principal); R63.4 Abnormal weight loss
CPT/HCPCS: 74170; Q9967

== ENCOUNTER 2024-07-15 14:54 | Outpatient (CLI) | payer MEDICARE, SELFPAY ==
--- NOTE | 2024-07-15 14:55 | US_ITS ---
FINAL REPORT CLINICAL HISTORY: Distention and stranding on CT COMPARISON: None FINDINGS: ULTRASOUND BLADDER WITH POST VOID RESIDUAL Bladder volumes were estimated based on 3 dimensional measurements, pre- and postvoid. Postvoid bladder volume: 36 mls The bilateral bladder jets are identified. IMPRESSION: Small postvoid residual . Reviewed, Interpreted and Dictated by Ronaldo Real MD Transcribed by Isabela Carl Authenticated and [facility]
== END 2024-07-15 23:59 | disposition home or self-care (01) ==
PROVIDERS: PCP Family Medicine; Visit Provider Family Medicine
DX: N32.89 Other specified disorders of bladder (principal)
CPT/HCPCS: 76857

== ENCOUNTER 2024-07-20 18:40 | Emergency (ER) | payer MEDICARE, SELFPAY ==
--- NOTE | 2024-07-20 18:36 | ECG_ITS ---
APPROVED REPORT Exam: Resting ECG HR:62 bpm ECG Measurements Heart Rate 62 AXES WY 148 P 76 QRSd 84 QRS 92 QT 377 T 47 QTc 381 Conclusion Sinus rhythm Borderline right axis deviation Electronically signed by : GREG YANG, 07/20/2024 21:00:13
[2024-07-20 18:40] VITALS: BP 160/69; PULSE 62; RESP 16; TEMP 36.6; O2SAT 100; BMI 26.4
--- NOTE | 2024-07-20 18:43 | [facility].EDCP ---
Discharge Plan Disposition Patient Disposition: Home, Self-Care Condition: Good Prescriptions Prescriptions: No Action Farxiga 10 mg tablet 10 mg PO DAILY Qty: 90 3RF losartan 100 mg tablet See Rx Instructions .ROUTE .COMPLEX Qty: 90 3RF Dose Instruction: TAKE 1 TABLET BY MOUTH ONCE A DAY Rx Instructions: TAKE 1 TABLET BY MOUTH ONCE A DAY escitalopram oxalate [Lexapro] 20 mg tablet 20 mg PO DAILY Qty: 90 3RF pantoprazole 40 mg tablet,delayed release (DR/EC) 40 mg PO DAILY hydrochlorothiazide 25 mg tablet 25 mg PO DAILY atorvastatin 40 mg tablet See Rx Instructions .ROUTE .COMPLEX Qty: 90 10RF Dose Instruction: TAKE 1 TABLET EVERY DAY Rx Instructions: TAKE 1 TABLET EVERY DAY quetiapine [Seroquel] 200 mg tablet 200 mg PO DAILY Qty: 90 3RF gabapentin 300 mg capsule 300 mg PO BID Qty: 60 2RF azithromycin 500 mg tablet 500 mg PO DAILY 3 Days Qty: 3 0RF (DME) blood-glucose meter [True Metrix Glucose Meter] Misc See Rx Instructions .ROUTE .COMPLEX Qty: 1 0RF Dose Instruction: USE DIRECTED Rx Instructions: USE DIRECTED (DME) lancets [TRUEplus Lancets] 28 gauge misc See Rx Instructions .ROUTE .COMPLEX Qty: 100 0RF Dose Instruction: CHECK BLOOD SUGAR ONCE OR TWICE A A DAY Rx Instructions: CHECK BLOOD SUGAR ONCE OR TWICE A A DAY tamsulosin [Flomax] 0.4 mg capsule 0.4 mg PO DAILY Qty: 90 3RF (DME) True Metrix Glucose Test Strip Strip See Rx Instructions .Route Qty: 100 0RF Rx Instructions: Use to check blood sugar daily and prn diphenoxylate-atropine [Lomotil] 2.5-0.025 mg tablet 1 tab PO TID PRN (Reason: diarrhea) Qty: 14 1RF cholestyramine (with sugar) [Questran] 4 gram powder 4 g PO BID Qty: 378 4RF Rx Instructions: administer w/meal; avoid other meds within 1hr before or 4-6hr after dose metoprolol succinate 200 mg tablet extended release 24 hr See Rx Instructions .ROUTE .COMPLEX Qty: 30 2RF Dose Instruction: TAKE ONE TABLET BY MOUTH EVERY DAY Rx Instructions: TAKE ONE TABLET BY MOUTH EVERY DAY metformin 1,000 mg tablet See Rx Instructions .ROUTE .COMPLEX Qty: 60 0RF Dose Instruction: TAKE ONE TABLET BY MOUTH 2 TIMES A DAY Rx Instructions: TAKE ONE TABLET BY MOUTH 2 TIMES A DAY Referrals Follow up/Referrals: Provider,Referral, MD [Primary Care Provider] - See instructions Activity Restrictions/Add. Instructions Additional Instructions/Restrictions: Follow-up with your PCP for recheck within [address] Wilkins and establish a follow-up appointment for this problem. Return to ER for any worsening signs or symptoms as needed Clinical Impressions Clinical Impression: Acute chest pain, Recent unexplained weight loss Instructions Patient Instructions: DI for Chest Pain Print Language Print Language: Albanian Discharge ED Provider: Mitch Barragan HPI <BISI Cruz - Last Filed: 07/20/24 21:21> General Chief Complaint: Chest Pain Stated Complaint: Chest Pain Time Seen by Provider: 07/20/24 18:43 History of Present Illness HPI narrative: Patient presents for evaluation of chest pain. Patient gives a history of 3 days of left-sided chest pain. Pain has been continuous but crescendoing to the day hence is present Tat[facility] to the ER. Patient denies shortness of breath fever chills hemoptysis hematochezia melena nausea vomiting but does endorse a poor taste decreased oral intake and a 75 pound weight loss over the last 5 months. He also reports loose stool after every meal. Related Data Home Medications ?Medication ?Instructions ?Recorded ?Confirmed hydrochlorothiazide 25 mg tablet 25 mg PO DAILY 02/03/24 07/06/24 pantoprazole 40 mg tablet,delayed 40 mg PO DAILY 02/03/24 07/06/24 release Previous Rx's ?Medication ?Instructions ?Recorded blood-glucose meter (True Metrix ##1 01/11/23 Glucose Meter) lancets 28 gauge (TRUEplus Lancets) #100 ea 05/09/23 dapagliflozin propanediol 10 mg 10 mg PO DAILY #90 tabs 11/18/23 tablet (Farxiga) losartan 100 mg tablet See Rx Instructions .Route 11/18/23 .COMPLEX #90 tabs atorvastatin 40 mg tablet See Rx Instructions .Route 02/03/24 .COMPLEX #90 tabs quetiapine 200 mg tablet (Seroquel) 200 mg PO DAILY #90 tabs 02/03/24 tamsulosin 0.4 mg capsule (Flomax) 0.4 mg PO DAILY #90 caps 03/02/24 blood sugar diagnostic (True #100 ea 04/28/24 Metrix Glucose Test Strip) escitalopram oxalate 20 mg tablet 20 mg PO DAILY #90 tabs 05/01/24 (Lexapro) gabapentin 300 mg capsule 300 mg PO BID #60 caps 06/04/24 diphenoxylate-atropine 2.5 1 tab PO TID PRN diarrhea #14 tabs 06/22/24 mg-0.025 mg tablet (Lomotil) azithromycin 500 mg tablet 500 mg PO DAILY 3 days #3 tabs 07/06/24 cholestyramine (with sugar) 4 gram 4 g PO BID #378 grams 07/10/24 oral powder (Questran) metformin 1,000 mg tablet See Rx Instructions .Route 07/20/24 .COMPLEX #60 tabs metoprolol succinate 200 mg See Rx Instructions .Route 07/20/24 tablet,extended release 24 hr .COMPLEX #30 tabs Allergies Allergy/AdvReac Type Severity Reaction Status Date / Time venom-honey bee Allergy Severe Anaphylaxis Verified 07/06/24 15:41 nickel Allergy Unknown Verified 07/06/24 15:41 adhesive tape Allergy Verified 07/06/24 15:41 PFS <BISI Cruz - Last Filed: 07/20/24 21:21> [facility] Disclaimer: The information contained in this section may have been updated after the patient was seen, as this information can be updated by other users. 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 Dizziness Dyspnea Fatigue CAD (coronary artery disease) Chest pain SOB (shortness of breath) Abnormal stress test Social History Smoking Status: Current every day smoker tobacco type: cigarettes packs per day: 1 second hand exposure: No alcohol intake: never substance use type: denies use current occupational status: other Travel in the last 8 weeks: None household members: family housing: house current occupational exposures/hazards: No caffeine: Yes Other 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 Have you received the Flu Vaccine for this season: No Have you received the Pneumonia Vaccine: No <BISI Cruz - Last Filed: 07/20/24 21:21> ROS Obtained: Yes Systems reviewed as appropriate & no additional complaints except as documented Physical Exam <BISI Cruz - Last Filed: 07/20/24 21:21> General General appearance: alert and in no apparent distress Respiratory Respiratory exam: Present normal lung sounds bilaterally Cardiovascular Cardiovascular exam: Present regular rate Neurological Exam Neurological exam: Present alert and oriented X3 HEART Score <BISI Cruz - Last Filed: 07/20/24 21:21> HEART Score HEART Score assessment performed?: Yes History (anamnesis): Slightly suspicious ECG: Normal Age: 45-65 years Risk factors: 3 or more risk factors Troponin: </= normal limit HEART Score: 3 <Mitch Barragan MD - Last Filed: 07/20/24 21:32> HEART Score HEART Score: 3 Critical Care <BISI Cruz - Last Filed: 07/20/24 21:21> Critical Care Time Critical Care Time: No Medical Decision Making <BISI Cruz - Last Filed: 07/20/24 21:21> Medical Records Medical records reviewed: Yes I reviewed the patient's medical records. Chidi Inquiry Pt receiving controlled substance: No Vital Signs Vital Signs: 07/20/24 18:40 07/20/24 19:00 07/20/24 19:30 Temperature 97.8 F Temperature Source Oral Pulse Rate 55 L 51 L Pulse Rate [Left Radial] 62 Respiratory Rate 16 Blood Pressure 133/70 151/82 H Blood Pressure [Right Arm] 160/69 H Blood Pressure Mean [Right Arm] 99 Blood Pressure Source [Right Arm] Automatic Cuff Blood Pressure Position [Right Arm] Sitting 02 Sat by Pulse Oximetry 100 97 96 Oxygen Delivery Method Room Air 07/20/24 20:30 07/20/24 21:00 Temperature Temperature Source Pulse Rate 56 L 53 L Pulse Rate [Left Radial] Respiratory Rate Blood Pressure 157/86 H 160/86 H Blood Pressure [Right Arm] Blood Pressure Mean [Right Arm] Blood Pressure Source [Right Arm] Blood Pressure Position [Right Arm] 02 Sat by Pulse Oximetry 97 97 Oxygen Delivery Method Lab Data Lab results reviewed: Yes I reviewed the patient's lab results. Labs: Lab Results 07/20/24 18:40: WBC 7.5, RBC 4.89, Hgb 15.4, Hct 45.3, MCV 92.7, MCH 31.5 H, MCHC 34.0, RDW 14.3, Plt Count 231, MPV 7.5, Neut % (Auto) 69.1, Lymph % (Auto) 23.7, Collin % (Auto) 5.6, Eos % (Auto) 0.9, Baso % (Auto) 0.7, Neut # (Auto) 5.2, Lymph # (Auto) 1.8, Collin # (Auto) 0.4, Eos # (Auto) 0.1, Baso # (Auto) 0.1, PT 9.8 L, INR 0.86 L, Sodium 139, Potassium 4.2, Chloride 105, Carbon Dioxide 27, Anion Gap 11.2, BUN 8 L, Creatinine 0.90, Estimated Creat Clear 109, Estimated GFR 88, Est GFR ( Amer) 107, Glucose 121 H, Calcium 9.5, Magnesium 1.8, Total Bilirubin 0.6, AST 24, ALT 21, Alkaline Phosphatase 63, Troponin I < 0.01, Total Protein 7.9, Albumin 4.8, Globulin 3.1, Albumin/Globulin Ratio 1.5, Lipase 69, HIV 1&2 Antibody Rapid Nonreactive 07/20/24 18:40 07/20/24 18:40 Response Orders (Tests/Meds): ED MEDICATIONS Discontinued Medications Generic Name Dose Route Start Last Admin Trade Name Abranq PRN Reason Stop Dose Admin Acetaminophen 1,000 mg 07/20/24 18:54 07/20/24 19:03 Acetaminophen 500mg Tab PO 07/20/24 18:55 1,000 mg ONCE ONE Administration Belladonna Alkaloids 60 ml 07/20/24 18:54 07/20/24 19:03 Belladonna Alkaloids 60 Ml Ml PO 07/20/24 18:55 60 ml ONCE ONE Administration Iopamidol 70 ml 07/20/24 20:07 07/20/24 20:08 Iopamidol-370 (76%);100ml Bottle IV 07/20/24 20:08 70 ml ONCE ONE Administration Sodium Chloride 50 ml 07/20/24 20:07 07/20/24 20:08 0.9 % Sodium Chloride 50 Ml Vial IV 07/20/24 20:08 50 ml ONCE ONE Administration Sodium Chloride 10 ml 07/20/24 20:07 07/20/24 20:08 Sodium Chloride 0.9% 10ml Syr (Rad Only) IV 07/20/24 20:08 10 ml ONCE ONE Administration ORDERS Category Date Time Status CT abdomen pelvis w con Stat Cat Scan 07/20/24 18:[address] angio chest PE protocol Stat Cat Scan 07/20/24 18:54 Completed CBC w/Auto Diff [Complete Blood Count Auto Diff] Stat Lab 07/20/24 18:40 Completed CMP [Comprehensive Metabolic Panel] Stat Lab 07/20/24 18:40 Completed HIV (1&2) Antibody Rapid Stat Lab 07/20/24 18:40 Completed Hep C Ab with Reflex to RNA Stat Lab 07/20/24 18:40 Received INR [Prothrombin Time INR] Stat Lab 07/20/24 18:40 Completed Lipase Stat Lab 07/20/24 18:40 Completed Magnesium Stat Lab 07/20/24 18:40 Completed Trop I [Troponin I] Stat Lab 07/20/24 18:40 Completed Troponin I Q3H Lab 07/20/24 22:00 Ordered Troponin I Q3H Lab 07/21/24 01:00 Ordered MDM Narrative Medical Decision Narrative: In summary patient is a 53-year-old male who presents to the emergency department for evaluation of chest pain and unexplained weight loss. Patient is hemodynamically stable upon arrival, afebrile. Physical exam is remarkable for reproducible left anterior upper chest wall pain on palpation normal breath sounds normal heart sounds and mild discomfort on abdominal palpation but no rebound no guarding no rigidity with normal bowel sounds. Differential diagnosis includes ACS versus PE versus malignant neoplastic process versus pneumonia etc. Initial workup will be conducted with hematologic labs twelve-lead EKG CT scan PE protocol CT scan abdomen pelvis with contrast. Initial interventions include GI cocktail oral Tylenol. Initial workup reviewed by me shows that his hematologic labs are nonactionable including undetectable troponin, my informal interpretation of his imaging shows no acute processes of the CT scan abdomen pelvis.. Upon repeat evaluation interval improvement in his symptoms after initial intervention. 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 and referral back to his PCP for continued workup of his unexplained weight loss <Mitch Barragan MD - Last Filed: 07/20/24 21:32> Vital Signs Vital Signs: 07/20/24 18:40 07/20/24 19:00 07/20/24 19:30 Temperature 97.8 F Temperature Source Oral Pulse Rate 55 L 51 L Pulse Rate [Left Radial] 62 Respiratory Rate 16 Blood Pressure 133/70 151/82 H Blood Pressure [Right Arm] 160/69 H Blood Pressure Mean [Right Arm] 99 Blood Pressure Source [Right Arm] Automatic Cuff Blood Pressure Position [Right Arm] Sitting 02 Sat by Pulse Oximetry 100 97 96 Oxygen Delivery Method Room Air 07/20/24 20:30 07/20/24 21:00 Temperature Temperature Source Pulse Rate 56 L 53 L Pulse Rate [Left Radial] Respiratory Rate Blood Pressure 157/86 H 160/86 H Blood Pressure [Right Arm] Blood Pressure Mean [Right Arm] Blood Pressure Source [Right Arm] Blood Pressure Position [Right Arm] 02 Sat by Pulse Oximetry 97 97 Oxygen Delivery Method Lab Data Labs: Lab Results 07/20/24 18:40: WBC 7.5, RBC 4.89, Hgb 15.4, Hct 45.3, MCV 92.7, MCH 31.5 H, MCHC 34.0, RDW 14.3, Plt Count 231, MPV 7.5, Neut % (Auto) 69.1, Lymph % (Auto) 23.7, Collin % (Auto) 5.6, Eos % (Auto) 0.9, Baso % (Auto) 0.7, Neut # (Auto) 5.2, Lymph # (Auto) 1.8, Collin # (Auto) 0.4, Eos # (Auto) 0.1, Baso # (Auto) 0.1, PT 9.8 L, INR 0.86 L, Sodium 139, Potassium 4.2, Chloride 105, Carbon Dioxide 27, Anion Gap 11.2, BUN 8 L, Creatinine 0.90, Estimated Creat Clear 109, Estimated GFR 88, Est GFR ( Amer) 107, Glucose 121 H, Calcium 9.5, Magnesium 1.8, Total Bilirubin 0.6, AST 24, ALT 21, Alkaline Phosphatase 63, Troponin I < 0.01, Total Protein 7.9, Albumin 4.8, Globulin 3.1, Albumin/Globulin Ratio 1.5, Lipase 69, HIV 1&2 Antibody Rapid Nonreactive Response Orders (Tests/Meds): ED MEDICATIONS Discontinued Medications Generic Name Dose Route Start Last Admin Trade Name Freq PRN Reason Stop Dose Admin Acetaminophen 1,000 mg 07/20/24 18:54 07/20/24 19:03 Acetaminophen 500mg Tab PO 07/20/24 18:55 1,000 mg ONCE ONE Administration Belladonna Alkaloids 60 ml 07/20/24 18:54 07/20/24 19:03 Belladonna Alkaloids 60 Ml Ml PO 07/20/24 18:55 60 ml ONCE ONE Administration Iopamidol 70 ml 07/20/24 20:07 07/20/24 20:08 Iopamidol-370 (76%);100ml Bottle IV 07/20/24 20:08 70 ml ONCE ONE Administration Sodium Chloride 50 ml 07/20/24 20:07 07/20/24 20:08 0.9 % Sodium Chloride 50 Ml Vial IV 07/20/24 20:08 50 ml ONCE ONE Administration Sodium Chloride 10 ml 07/20/24 20:07 07/20/24 20:08 Sodium Chloride 0.9% 10ml Syr (Rad Only) IV 07/20/24 20:08 10 ml ONCE ONE Administration ORDERS Category Date Time Status CT abdomen pelvis w con Stat Cat Scan 07/20/24 18:[address] angio chest PE protocol Stat Cat Scan 07/20/24 18:54 Completed CBC w/Auto Diff [Complete Blood Count Auto Diff] Stat Lab 07/20/24 18:40 Completed CMP [Comprehensive Metabolic Panel] Stat Lab 07/20/24 18:40 Completed HIV (1&2) Antibody Rapid Stat Lab 07/20/24 18:40 Completed Hep C Ab with Reflex to RNA Stat Lab 07/20/24 18:40 Received INR [Prothrombin Time INR] Stat Lab 07/20/24 18:40 Completed Lipase Stat Lab 07/20/24 18:40 Completed Magnesium Stat Lab 07/20/24 18:40 Completed Trop I [Troponin I] Stat Lab 07/20/24 18:40 Completed Troponin I Q3H Lab 07/20/24 22:00 Ordered Troponin I Q3H Lab 07/21/24 01:00 Ordered ECG Data Tracing #1: Attestation: I reviewed this ECG and interpreted as documented below: (Independent interpretation 1837. Sinus rhythm 62 beats a minute no ST or T wave changes concerning for acute ischemia. AK 148, QRS 84, QTc 381. Borderline right axis deviation.) MDM Narrative Medical Decision Narrative: In summary patient is a 53-year-old male who presents to the emergency department for evaluation of chest pain and unexplained weight loss. Patient is hemodynamically stable upon arrival, afebrile. Physical exam is remarkable for reproducible left anterior upper chest wall pain on palpation normal breath sounds normal heart sounds and mild discomfort on abdominal palpation but no rebound no guarding no rigidity with normal bowel sounds. Differential diagnosis includes ACS versus PE versus malignant neoplastic process versus pneumonia etc. Initial workup will be conducted with hematologic labs twelve-lead EKG CT scan PE protocol CT scan abdomen pelvis with contrast. Initial interventions include GI cocktail oral Tylenol. Initial workup reviewed by me shows that his hematologic labs are nonactionable including undetectable troponin, my informal interpretation of his imaging shows no acute processes of the CT scan abdomen pelvis.. Upon repeat evaluation interval improvement in his symptoms after initial intervention. 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 I approved the treatment and management plan for this patient's care in the Emergency Department, thus performing a substantive portion of the medical decision making. Mitch Barragan MD
--- NOTE | 2024-07-20 18:54 | CT_ITS ---
PROCEDURE INFORMATION: Exam: CTA Chest With Contrast Exam date and time: 07/20/2024 8:04 PM Age: 53 years old Clinical indication: Pain; Chest pressure; Additional info: Left chest pain, 75# weight loss TECHNIQUE: Imaging protocol: Computed tomographic angiography of the chest with contrast. Exam focused on the arteries. 3D rendering (Not supervised by radiologist): MIP and/or 3D reconstructed images were created by the technologist. Radiation optimization: All CT scans at this facility use at least one of these dose optimization techniques: automated exposure control; mA and/or kV adjustment per patient size (includes targeted exams where dose is matched to clinical indication); or iterative reconstruction. Contrast material: ISOVUE; Contrast volume: 70 ml; Contrast route: INTRAVENOUS (IV); COMPARISON: CT ANGIO CHEST 10/18/2020 7:12 PM FINDINGS: Pulmonary arteries: Normal. No pulmonary emboli. Aorta: No CT evidence of aortic dissection or acute pulmonary Lungs: Mild paraseptal pattern emphysema present at both upper lobes Pleural spaces: No pleural effusion. Pneumothorax no visible coronary artery calcifications. Heart: Unremarkable. No cardiomegaly. No pericardial effusion. Lymph nodes: Calcified lymph nodes right infrahilar region. Bones/joints: Unremarkable. No acute fracture. Soft tissues: Unremarkable. IMPRESSION: 1. Old granulomatous disease. 2. No CT evidence of acute pulmonary embolus. 3. Mild paraseptal pattern emphysema bilateral upper lobes. Mostly stable COMMENTS: The presence of pulmonary emphysema on CT is an independent risk factor for lung cancer. In the absence of a history or active diagnosis of lung cancer, it is recommended that this patient with emphysema be evaluated for enrollment in a low dose CT lung cancer screening program.
--- NOTE | 2024-07-20 18:54 | CT_ITS ---
PROCEDURE INFORMATION: Exam: CT Abdomen And Pelvis With Contrast Exam date and time: 07/20/2024 8:04 PM Age: 53 years old Clinical indication: Abdominal pain; Additional info: Left chest pain, 75# weight loss TECHNIQUE: Imaging protocol: Computed tomography of the abdomen and pelvis with contrast. 3D rendering (Not supervised by radiologist): MIP and/or 3D reconstructed images were created by the technologist. Radiation optimization: All CT scans at this facility use at least one of these dose optimization techniques: automated exposure control; mA and/or kV adjustment per patient size (includes targeted exams where dose is matched to clinical indication); or iterative reconstruction. Contrast material: ISOVUE; Contrast volume: 70 ml; Contrast route: IV; COMPARISON: CT ABDOMEN PELVIS W CON 07/20/2024 8:04 PM FINDINGS: Liver: Normal. No mass. Gallbladder and biliary ducts: Contracted gallbladder Pancreas: Normal. No ductal dilation. Spleen: Normal. No splenomegaly. Adrenal glands: Normal. No mass. Kidneys and ureters: Normal. No hydronephrosis. Stomach and bowel: Unremarkable. No obstruction. No mucosal thickening. Appendix: Normal appendix Intraperitoneal space: No visible free fluid. Vasculature: Unremarkable. No abdominal aortic aneurysm. Lymph nodes: Calcified lymph nodes at the right infrahilar lung. Urinary bladder: Unremarkable as visualized. Reproductive: Unremarkable as visualized. Bones/joints: Old pelvic deformity left pubic bone. Healed fractures. Soft tissues: Unremarkable. IMPRESSION: 1. No visible acute intra-abdominal abnormality 2. Incidental findings above.
[2024-07-20 19:00] VITALS: BP 133/70; PULSE 55; O2SAT 97
[2024-07-20 19:03] LABS: Basophils # 0.1 K/mm3 (0-0.2); Basophils % 0.7 % (0.1-2.0); Eosinophils # 0.1 K/mm3 (0.0-0.4); Eosinophils % 0.9 % (0.1-12.0); Hematocrit 45.3 % (42.0-52.0); Hemoglobin 15.4 g/dL (14.1-18.0); Lymphocytes # 1.8 K/mm3 (0.7-4.5); Lymphocytes % 23.7 % (10-50); Mean Corpuscular Hemoglobin 31.5 pg (27.0-31.2); Mean Corpuscular Volume 92.7 fl (80-94); Mean Platelet Volume 7.5 fl (7.4-10.4); Monocytes # 0.4 K/mm3 (0.1-1.0); Monocytes % 5.6 % (1.7-9.3); Neutrophils # 5.2 K/mm3 (1.8-7.8); Neutrophils % 69.1 % (37.0-80.0); Platelet Count 231 K/mm3 (142-424); Red Blood Count 4.89 M/mm3 (4.60-6.20); Red Cell Distribution Width 14.3 % (11.5-17.5); White Blood Count 7.5 K/mm3 (4.8-10.8)
[2024-07-20] MEDS: ACETAMINOPHEN 500MG TAB 1000 MG PO (19:03)
[2024-07-20] MEDS: BELLADONNA ALKALOIDS 60 ML ML PO (19:03)
[2024-07-20 19:06] LABS: Albumin Level 4.8 g/dl (3.5-5.0); Chloride 105 mmol/L (98-107); Potassium 4.2 mmoL/L (3.5-5.1); Sodium 139 mmol/L (136-145)
[2024-07-20 19:09] LABS: Alanine Aminotransferase 21 U/L (12-78); Albumin/Globulin Ratio 1.5 (1.1-1.8); Alkaline Phosphatase 63 U/L (38-126); Anion Gap 11.2 mEq/L (5-15); Aspartate Amino Transferase 24 U/L (17-59); Bilirubin,Total 0.6 mg/dl (0.2-1.3); Blood Urea Nitrogen 8 mg/dl (9-20); Calcium 9.5 mg/dl (8.4-10.2); Carbon Dioxide 27 mmol/L (22.0-30.0); Creatinine Clearance Estimated 109 mL/min (50-200); Estimated Glomerular Filt Rate 88 ml/min (>60); GFR (African American) 107 ML/MIN (>60); Globulin 3.1 g/dL (1.3-3.2); Glucose 121 mg/dl (74-100); INR 0.86 (0.9-1.1); Lipase 69 U/L (23-300); Magnesium 1.8 mg/dl (1.6-2.3); Prothrombin Time 9.8 seconds (10.1-12.5); Total Protein,Serum 7.9 g/dl (6.3-8.2)
[2024-07-20 19:30] VITALS: BP 151/82; PULSE 51; O2SAT 96
[2024-07-20 19:39] LABS: Troponin I < 0.01 ng/ml (0.00-0.034)
[2024-07-20] MEDS: 0.9 % SODIUM CHLORIDE 50 ML VIAL IV (20:08)
[2024-07-20] MEDS: IOPAMIDOL-370 (76%);100ML BOTTLE 70 ML IV (20:08)
[2024-07-20] MEDS: SODIUM CHLORIDE 0.9% 10ML SYR (RAD ONLY) 10 ML IV (20:08)
--- NOTE | 2024-07-20 20:24 | PC.NURSE ---
Giovanni Samaniego PA-C at bedside
[2024-07-20 20:30] VITALS: BP 157/86; PULSE 56; O2SAT 97
[2024-07-20 20:40] LABS: HIV (1&2) Antibody Rapid NONREACTIVE (NONREACTIVE)
[2024-07-20 21:00] VITALS: BP 160/86; PULSE 53; O2SAT 97
[2024-07-20 21:32] VITALS: BP 147/77; PULSE 55; RESP 18; TEMP 36.7; O2SAT 100
[2024-07-22 10:14] LABS: HCV Ab Non Reactive (Non Reactive)
== END 2024-07-20 21:40 | disposition home or self-care (01) ==
PROVIDERS: Physician Assistant; Emergency Provider Emergency Medicine
DX: R07.9 Chest pain, unspecified (principal); R19.7 Diarrhea, unspecified; R63.8 Other symptoms and signs concerning food and fluid intake; R63.4 Abnormal weight loss
CPT/HCPCS: 71275; 74177; 80053; 83690; 83735; 84484; 85025; 85610; 86803; 87389; 93005; 99285; Q9967

== ENCOUNTER 2024-07-21 12:02 | Outpatient (CLI) | payer MEDICARE, SELFPAY | END 2024-07-21 23:59 | disposition home or self-care (01) | LOC: LAB 12:04 | PROVIDERS: PCP Family Medicine; Visit Provider Internal Medicine Gastroenterology | DX: Z02.9 Encounter for administrative examinations, unspecified (principal) ==

== ENCOUNTER 2024-07-22 14:43 | Outpatient (CLI) | payer MEDICARE, SELFPAY ==
[2024-07-22 14:49] LABS: Adenovirus F 40/41, stool Not Detected (NotDetected); Astrovirus Not Detected (NotDetected); Campylobacter Not Detected (NotDetected); Clostridium Difficile A/B, PCR Not Detected (NotDetected); Cryptosporidium Not Detected (NotDetected); Cyclospora Cayetanesis Not Detected (NotDetected); Entamoeba histolytica Not Detected (NotDetected); Enteroaggregative E coli Not Detected (NotDetected); Enteropathogenic E coli Not Detected (NotDetected); Enterotoxigenic E coli Not Detected (NotDetected); Giardia lamblia Not Detected (NotDetected); Norovirus Not Detected (NotDetected); Plesimonas Shigalloides, PCR Not Detected (NotDetected); Rotavirus A Not Detected (NotDetected); Salmonella, PCR Not Detected (NotDetected); Sapovirus Not Detected (NotDetected); Shiga-like toxin E coli Not Detected (NotDetected); Shigella Enterovasive E coli Not Detected (NotDetected); Vibrio Cholerae Not Detected (NotDetected); Vibrio, PCR Not Detected (NotDetected); Yersinia Entercolitica, PCR Not Detected (NotDetected)
[2024-07-22 17:24] LABS: Occult Blood,Stool Negative (Negative)
[2024-07-26 00:11] LABS: Pancreatic Elastase, Fecal 90 (>200)
[2024-07-26 01:09] LABS: Calprotectin, Fecal 9 ug/g (0-120)
== END 2024-07-22 23:59 | disposition home or self-care (01) ==
LOC: LAB 14:45
PROVIDERS: PCP Family Medicine; Visit Provider Internal Medicine Gastroenterology
DX: R63.4 Abnormal weight loss (principal); R19.7 Diarrhea, unspecified
CPT/HCPCS: 82272; 82656; 83993; 87506; G0328

== ENCOUNTER 2024-08-26 12:21 | Outpatient (CLI) | payer MEDICARE, SELFPAY ==
--- NOTE | 2024-08-26 | CA_ITS ---
APPROVED REPORT Exam: Pharmacologic Ht: 5 ft 10 in Wt: 175 lbs BSA: 1.97 m2 HR: 48 bpm BP: 120/65 mmHg Stress Test Details Test: Lexiscan Reason for pharmacologic stress test: physical limitation. HR Resting HR: 48 bpm Max Heart Rate (APMHR): 167 bpm Max HR Achieved: 86 bpm Target HR (85% APMHR): 142 bpm % of APMHR: 52 Recovery HR: 64 bpm BP Resting BP: 120.0/65.0 mmHg Max BP: 130.0/73.0 mmHg Recovery BP: 126.0/71.0 mmHg ECG Resting ECG: Marked sinus gilmar, NS ST abns in leads III, a VF Stress ECG Conclusion Symptoms: SOA, dizziness. No CP. Arrhythmias/Ectopy: None ST-T Changes: No significant changes. Conclusion: Unremarkable Lexiscan stress. Electronically signed by : Julia Youssef MD 08/27/2024 13:07:17
--- NOTE | 2024-08-26 12:21 | NM_ITS ---
APPROVED REPORT Exam: Nuclear Stress Test Indication: cad, htn, diabetes, hyperlipidemia, tob use, fm hx, c.p., sob, fatigue Patient Location: Outpatient Stress Tech: [facility] Tech:Yvrose Lucero, ARRT RT (R)(N)(M) Ht: 5 ft 10 in Wt: 173 lbs HR: 48 bpm BP: 120/65 mmHg BSA: 1.96 m2 TID: 1.14 BMI: 24.8 History: cad, htn, diabetes, hyperlipidemia, tob use, fm hx, c.p., sob, fatigue Procedure: Patient received 0.4 mg of intravenous Lexiscan, resting heart rate 48 bpm, resting blood pressure 120/65 mmHg, with Adenosine maximum heart rate achieved was 89 bpm which is % of the maximum predicted heart rate and blood pressure was 130/73 mmHg. With Lexiscan, patient denied any complaint of chest pain. Cardiac Stress and Resting SPECT Images: Cardiac Stress and Resting SPECT images were obtained using technetium 99m Myoview 31.2 mCi stress and 10.31 mCi at rest. Resting and stress imaging in supine position demonstrate a small sized, tapered fixed perfusion defect in the basal inferior LV wall. This is no longer visualized with prone stress imaging. Findings are suggestive of diaphragmatic attenuation. Gated imaging demonstrates low-normal and regional global LV systolic function. LVEF is calculated at 51%. Conclusion: Diaphragmatic attenuation is present. No evidence of fixed or reversible perfusion defects. Gated imaging demonstrates low-normal and regional global LV systolic function. LVEF is calculated at 51%. Electronically signed by : Julia Youssef MD 08/27/2024 13:09:27
[2024-08-26] MEDS: SODIUM CHLORIDE 0.9% 10ML SYR (RAD ONLY) 10 ML IV ×2 (12:40→14:00)
[2024-08-26] MEDS: REGADENOSON 0.4MG/5ML SYRINGE 0.4 MG IV (14:00)
[2024-08-26] MEDS: ISOTOPE MYOVIEW (PER STUDY) 1 DOSE IV (14:43)
== END 2024-08-26 23:59 | disposition home or self-care (01) ==
LOC: RAD 12:21
PROVIDERS: PCP Family Medicine; Visit Provider Nurse Practitioner Family
DX: R07.89 Other chest pain (principal); R06.09 Other forms of dyspnea; I25.118 Atherosclerotic heart disease of native coronary artery with other forms of angina pectoris; R53.83 Other fatigue
CPT/HCPCS: 78452; 93017; 93018; 93306; A9502; J2785

== ENCOUNTER 2024-09-21 09:22 | Day surgery (SDC) | payer MEDICARE, SELFPAY ==
[2024-09-18 12:00] VITALS: BMI 25.7
[2024-09-21 09:43] VITALS: BP 101/59; PULSE 56; RESP 17; TEMP 36.2; O2SAT 100
--- NOTE | 2024-09-21 09:49 | P.PNANES_ITS ---
[facility] Disclaimer: The information contained in this section may have been updated after the patient was seen, as this information can be updated by other users. 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 Depression Asthma COPD (chronic obstructive pulmonary disease) Angina pectoris Diabetes Dizziness Dyspnea Fatigue CAD (coronary artery disease) Chest pain SOB (shortness of breath) Abnormal stress test Hyperlipidemia GERD (gastroesophageal reflux disease) Hypertension Surgical History History of surgical procedure on mouth History of nasal surgery Family History Mother Thyroid cancer Father Prostate cancer Arrhythmia Social History Smoking Status: Current every day smoker tobacco type: cigarettes packs per day: 1 second hand exposure: No alcohol intake: never substance use type: denies use current occupational status: disabled Travel in the last 8 weeks: None household members: family housing: house current occupational exposures/hazards: No caffeine: Yes [facility] Anesthesia Checklist Patient Identification Patient Identification: Arm Band and Verbal (Name & ) Structural Data Admitted From: Home Planned Operative Procedure/s: EGD Consent for Planned Operative Procedure(s) Verified: Yes Verified Documents: Surgical Consent and History and Physical NPO Status Verified Time NPO: 09:15 Chart Verification Results Verified: CBC, BMP and ECG Additional verifications Fingerstick Blood Glucose: 85 Patient : No Anesthesia Reactions: No Hx Blood Transfusions: No Blood Transfusion Reaction: No Previous Colonoscopy: Yes Cardiovascular Assessment Heart Sounds: S1 & S2 Pulse Rhythm: Irregular Peripheral Edema: No Airway Assessment Mallampati Score:: Class II C-Spine Mobility Assessed: Yes (FROM demonstrated) TMJ Mobility Assessed: Yes Dentition: Poor Dentition (Nothing loose per pt.) Neurological Assessment Level of Consciousness: Awake, Alert, Appropriate and Follows Commands Hx Seizures: No Numbness or tingling in extremities: No Anesthesia Plan Anesthesia Risk discussed: Yes Anesthesia Plan: Verified ASA Class: III Anesthesia Type: MAC
[2024-09-21] MEDS: LACTATED RINGERS 1000ML 1,000 ML 25 ML IV (09:55)
[2024-09-21 10:24] VITALS: O2SAT 97
--- NOTE | 2024-09-21 10:30 | P.HP_ITS ---
History of Present Illness *Admission Date: 09/21/24 *Reason for visit:: Lack of appetite, weight loss, dyspepsia epigastric pain and dysphagia *History of present illness: Mr. Gr is a 54-year-old gentleman with dyspepsia, nausea, fullness and lack of appetite with weight loss who is here for diagnostic upper endoscopy. The examination is deemed medically necessary for EGD. The patient has been seen, interviewed and examined prior to the procedure by both myself and the anesthesi a provider. [facility] Disclaimer: The information contained in this section may have been updated after the patient was seen, as this information can be updated by other users. 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 (Updated 09/21/24 @ 10:32 by Massimo Nolan II, MD) Depression Asthma COPD (chronic obstructive pulmonary disease) Angina pectoris Diabetes Dizziness Dyspnea Fatigue CAD (coronary artery disease) Chest pain SOB (shortness of breath) Abnormal stress test Hyperlipidemia GERD (gastroesophageal reflux disease) Hypertension Surgical History History of surgical procedure on mouth History of nasal surgery Family History Mother Thyroid cancer Father Prostate cancer Arrhythmia Social History Smoking Status: Current every day smoker tobacco type: cigarettes packs per day: 1 second hand exposure: No alcohol intake: never substance use type: denies use current occupational status: disabled Travel in the last 8 weeks: None household members: family housing: house current occupational exposures/hazards: No caffeine: Yes Other 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 Have you received the Flu Vaccine for this season: No Have you received the Pneumonia Vaccine: No Review of Systems Review of Systems Review of systems (narrative): Negative *Cardiovascular Comments: Negative *Gastrointestinal Comments: Negative *Genitourinary Comments: Negative *Musculoskeletal Comments: Negative *Neurologic Comments: Negative Meds Home Medications and Allergies Home Medications ?Medication ?Instructions ?Recorded ?Confirmed ?Type blood-glucose meter (True Metrix ##1 01/11/23 09/08/24 Rx Glucose Meter) lancets 28 gauge (TRUEplus Lancets) #100 ea 05/09/23 09/08/24 Rx dapagliflozin propanediol 10 mg 10 mg PO DAILY #90 tabs 11/18/23 09/21/24 Rx tablet (Farxiga) pantoprazole 40 mg tablet,delayed 40 mg PO DAILY 02/03/24 09/21/24 History release quetiapine 200 mg tablet (Seroquel) 200 mg PO DAILY #90 tabs 02/03/24 09/21/24 Rx tamsulosin 0.4 mg capsule (Flomax) 0.4 mg PO DAILY #90 caps 03/02/24 09/21/24 Rx blood sugar diagnostic (True #100 ea 04/28/24 09/08/24 Rx Metrix Glucose Test Strip) escitalopram oxalate 20 mg tablet 20 mg PO DAILY #90 tabs 05/01/24 09/21/24 Rx (Lexapro) diphenoxylate-atropine 2.5 1 tab PO TID PRN diarrhea #14 tabs 06/22/24 09/21/24 Rx mg-0.025 mg tablet (Lomotil) cholestyramine (with sugar) 4 gram 4 g PO BID #378 grams 07/10/24 09/08/24 Rx oral powder (Questran) xbhpsz-ovcnlrpr-mdwesjj 1 cap PO TID #100 caps 07/21/24 09/21/24 Rx 36,000-114,000-180,000 unit capsule,delay rel (Creon) metoclopramide HCl 15 mg/spray 1 spray intranasal QID #9.8 mL 07/21/24 09/21/24 Rx nasal spray with pump (Gimoti) rifaximin 550 mg tablet (Xifaxan) 550 mg PO TID #42 tabs 07/21/24 09/21/24 Rx gcvedw-brzyrmwj-mkwemxt 2 cap PO .With meals #200 caps 07/27/24 09/21/24 Rx 36,000-114,000-180,000 unit capsule,delay rel (Creon) kouvhlwk-slgiwpzjl-dnbcxnbsz 3.5 4 drp otic (ear) Q6H 10 days #10 mL 08/10/24 09/21/24 Rx mg-10,000 unit/mL-1 % ear drops,susp tamsulosin 0.4 mg capsule (Flomax) 0.4 mg PO DAILY #30 caps 08/14/24 09/21/24 Rx metformin 1,000 mg tablet See Rx Instructions .Route 08/17/24 09/21/24 Rx .COMPLEX #60 tabs gabapentin 300 mg capsule 300 mg PO BID #60 caps 09/04/24 09/21/24 Rx aspirin 81 mg tablet,delayed 81 mg PO DAILY #90 tabs 09/08/24 09/21/24 Rx release (Adult Low Dose Aspirin) atorvastatin 40 mg tablet 40 mg PO HS #90 tabs 09/08/24 09/21/24 Rx hydrochlorothiazide 25 mg tablet 25 mg PO DAILY #90 tabs 09/08/24 09/21/24 Rx losartan 100 mg tablet See Rx Instructions .Route 09/08/24 09/21/24 Rx .COMPLEX #90 tabs metoprolol succinate 200 mg 200 mg PO DAILY #90 tabs 09/08/24 09/21/24 Rx tablet,extended release 24 hr nicotine 21 mg/24 hr daily 1 patch transdermal DAILY #28 ea 09/09/24 09/21/24 Rx transdermal patch New Prescriptions to Start Prescriptions: Allergies Allergy/AdvReac Type Severity Reaction Status Date / Time venom-honey bee Allergy Severe Anaphylaxis Verified 09/21/24 09:40 nickel Allergy Unknown Hives Verified 09/21/24 09:40 adhesive tape Allergy Rash Verified 09/21/24 09:40 Exam Data for Last 24 hours Vital signs and Labs for Last 24 Hours: Temp Pulse Resp BP Pulse Ox O2 Del Method O2 Flow Rate 97.2 F L 56 L 17 101/59 L 100 Nasal Cannula 5 09/21/24 09:43 09/21/24 09:43 09/21/24 09:43 09/21/24 09:43 09/21/24 09:43 09/21/24 10:24 09/21/24 10:24 I & O for Last 24 hours: Intake & Output 09/18/24 09/19/24 09/20/24 09/21/24 23:59 23:59 23:59 23:59 Weight 174 lb *Routine HEENT Exam Head: Present normocephalic Eye: Present EOMI and PERRL ENT: Present mucous membranes moist *Routine Neck Exam Neck: Present supple *Routine Respiratory Exam Respiratory: Present CTA bilaterally *Routine Cardiovascular Exam Cardiovascular: Present RRR *Routine Abdominal Exam Abdominal: Present soft and normoactive bowel sounds; Absent tenderness *Routine Rectal Exam Rectal:: deferred *Routine Genitalia Exam Genitalia:: deferred *Routine Extremities Exam Extremities: Absent cyanosis, clubbing or edema *Routine Skin Exam Skin: Present warm; Absent rash *Routine Neurological Exam Neurological: Present alert and oriented X3 Assessment and Plan *Assessment and plan (1) Nausea: Status: Acute Category: Medical Code(s): R11.0 - Nausea (2) Early satiety: Status: Acute Category: Medical Code(s): R68.81 - Early satiety (3) Bloating: Status: Acute Category: Medical Code(s): R14.0 - Abdominal distension (gaseous) (4) Lack of appetite: Status: Acute Category: Medical Code(s): R63.0 - Anorexia (5) Abnormal weight loss: Status: Acute Category: Medical Code(s): R63.4 - Abnormal weight loss (6) Dysphagia: Status: Acute Category: Medical Code(s): R13.10 - Dysphagia, unspecified Plan A/P: 1. Nausea, early satiety, lack of appetite, weight loss and dysphagia is the preprocedural diagnosis. The patient will be anesthetized/sedated using MAC sedation. The patient has been seen and examined. Cardiac and lung assessment prior to the examination is stable. Proceed with planned EGD
--- NOTE | 2024-09-21 10:32 | P.PCN_ITS ---
[facility] Procedure Note Date: 09/21/24 Time: 10:41 Procedure Note:: Upper Endoscopy Procedure Report: Esophagogastroduodenoscopy with cold biopsy and TTS balloon dilation Endoscopost: Massimo Nolan II, MD Referring Physician: Pineda Glover MD Date of Procedure: September 21, 2024 Equipment: Olympus GIF 190 standard upper endoscope Sedation: MAC sedation Indications: Mr. Gr is a 54-year-old gentleman with dyspepsia/epigastric discomfort, fullness, nausea, lack of appetite and weight loss. He did state that he had lost 75 pounds in 3 months. He also has frequent diarrhea. His PCR panel in May was negative. He has had some dysphagia. He did improve with samples of Gimoti and Xifaxan. His fecal elastase test was 90 mcg/g indicative of marked EPI (exocrine pancreatic insufficiency). He did have a negative fecal Hemoccult test and his stool fecal calprotectin was 9 mcg/g (normal). Procedure: Prior to the procedure, a history and physical exam was performed, and patient's medications and allergies were reviewed. The risks, benefits and alternatives of the sedation and procedure were discussed with the patient. All questions were answered and informed consent was obtained. The patient was brought to the procedure room. Patient identification and proposed procedure were verified by the physician and the nurse. The patient was placed in a left lateral decubitus position and the scope was passed under direct vision. Throughout the procedure, the patient's blood pressure, pulse, and oxygen saturations were monitored continuously. The upper GI endoscopy was accomplished without difficulty. The patient tolerated the procedure well. Findings: The scope was passed directly into the upper esophagus and advanced to the third portion of the duodenum. There was very mild peptic duodenitis of the duodenal bulb. Cold biopsies were taken from the first portion of the duodenum to rule out celiac disease. The scope was withdrawn through a normal duodenal bulb and pylorus into the stomach. There was moderate chronic gastritis/erosive gastritis with some associated linear gastropathy of the antrum. There was a reticular pattern/mosaic pattern suspicious for H. pylori. Biopsies were taken from the antrum and lesser curvature to rule out H. pylori. Upon retroflexion there was no hiatal hernia. The scope was then withdrawn into the esophagus. There was no evidence of reflux esophagitis or Rollins's. There was no corrugation or furrowing. There were tertiary contractions and evidence of mild to moderate esophageal dysmotility. The entire esophagus was dilated to 60 Nepali/20 mm with a TTS hydrostatic balloon. The remainder of the esophageal mucosa was normal. Impression: 1. Moderate chronic gastritis and mild peptic duodenitis?rule out H. pylori 2. Nonerosive GERD with moderate esophageal dysmotility Plan: I will follow-up the biopsies to rule out H. pylori. The patient does have EPI and I will determine whether he is able to get digestive enzyme replacement which had certainly helped. We will discuss additional treatment options.
[2024-09-21 10:45] VITALS: BP 92/48; PULSE 54; RESP 14; TEMP 36.7; O2SAT 95
[2024-09-21 10:55] VITALS: BP 92/82; PULSE 56; RESP 15; O2SAT 96
[2024-09-21 11:05] VITALS: BP 95/60; PULSE 54; RESP 16; O2SAT 96
[2024-09-21 11:15] VITALS: BP 101/62; PULSE 56; RESP 17; O2SAT 98
[2024-09-22 08:41] LABS: POC Glucose,Bedside 85 (70-110)
== END 2024-09-21 11:30 | disposition home or self-care (01) ==
PROVIDERS: PCP Family Medicine; Visit Provider Internal Medicine Gastroenterology
PROC: 0DJ08ZZ Inspection of Upper Intestinal Tract, Via Natural or Artificial Opening Endoscopic (ICD-10-PCS; CPT 43235; principal; 2024-09-21 10:30)
DX: R11.0 Nausea (principal); R68.81 Early satiety; R14.0 Abdominal distension (gaseous); R63.0 Anorexia; R63.4 Abnormal weight loss; R13.10 Dysphagia, unspecified; R10.13 Epigastric pain; K31.9 Disease of stomach and duodenum, unspecified; K29.50 Unspecified chronic gastritis without bleeding; K29.80 Duodenitis without bleeding; K21.9 Gastro-esophageal reflux disease without esophagitis; K22.4 Dyskinesia of esophagus; Z68.25 Body mass index [BMI] 25.0-25.9, adult; E11.8 Type 2 diabetes mellitus with unspecified complications; Z79.84 Long term (current) use of oral hypoglycemic drugs
CPT/HCPCS: 43239; 43249; 82962; 88305; C1726; J7120

== ENCOUNTER 2024-11-07 17:10 | Emergency (ER) | payer MEDICARE, SELFPAY ==
--- NOTE | 2024-11-07 17:19 | XR_ITS ---
PROCEDURE INFORMATION: Exam: XR Right Ankle Exam date and time: 11/07/2024 5:15 PM Age: 54 years old Clinical indication: Injury or trauma; Fall; Blunt trauma; Ankle; Right TECHNIQUE: Imaging protocol: Radiologic exam of the right ankle. Views: 3 or more views. COMPARISON: CR XR TIBIA FIBULA RT 2V 31/12/2021 19:51 FINDINGS: Bones/joints: Oblique distal fibula metaphyseal fracture. Soft tissues: Moderate soft tissue swelling around the lateral aspect of ankle. IMPRESSION: Oblique distal fibula metaphyseal fracture.
--- NOTE | 2024-11-07 17:19 | XR_ITS ---
PROCEDURE INFORMATION: Exam: XR Right Tibia and Fibula Exam date and time: 11/07/2024 5:17 PM Age: 54 years old Clinical indication: Injury or trauma; Fall; Blunt trauma; Lower leg; Right TECHNIQUE: Imaging protocol: Radiologic exam of the right tibia and fibula. Views: 2 views. COMPARISON: CR XR TIBIA FIBULA RT 2V 31/12/2021 19:51 FINDINGS: Bones/joints: Acute displaced oblique distal fibular metaphyseal fracture. Soft tissues: Normal. IMPRESSION: Acute displaced oblique distal fibular metaphyseal fracture. There is no proximal fibula fracture.
[2024-11-07 17:38] VITALS: BP 120/59; PULSE 88; RESP 18; TEMP 36.8; O2SAT 96; BMI 24.3
--- NOTE | 2024-11-07 17:51 | EXP.UTC ---
Discharge Plan Disposition Patient Disposition: Home, Self-Care Condition: Good Prescriptions Prescriptions: No Action Farxiga 10 mg tablet 10 mg PO DAILY Qty: 90 3RF escitalopram oxalate [Lexapro] 20 mg tablet 20 mg PO DAILY Qty: 90 3RF cfktxdsp-tmjvteovl-DZ 3.5-10,000-1 mg/mL-unit/mL-% drops,suspension 4 drp otic (ear) Q6H 10 Days Qty: 10 3RF Xifaxan 550 mg tablet 550 mg PO TID Qty: 42 2RF Rx Instructions: Please take 1 tablet p.o. 3 times daily x 14 days Creon 36,000-114,000- 180,000 unit capsule,delayed release(DR/EC) 1 cap PO TID Qty: 100 6RF Rx Instructions: administer with meals and/or snacks cefdinir 300 mg capsule 300 mg PO BID 10 Days Qty: 20 0RF pantoprazole 40 mg tablet,delayed release (DR/EC) 40 mg PO DAILY quetiapine [Seroquel] 200 mg tablet 200 mg PO DAILY Qty: 90 3RF aspirin [Adult Low Dose Aspirin] 81 mg tablet,delayed release (DR/EC) 81 mg PO DAILY Qty: 90 3RF atorvastatin 40 mg tablet 40 mg PO HS Qty: 90 3RF hydrochlorothiazide 25 mg tablet 25 mg PO DAILY Qty: 90 3RF metoprolol succinate 200 mg tablet extended release 24 hr 200 mg PO DAILY Qty: 90 3RF losartan 100 mg tablet See Rx Instructions .ROUTE .COMPLEX Qty: 90 3RF Dose Instruction: TAKE 1 TABLET BY MOUTH ONCE A DAY Rx Instructions: TAKE 1 TABLET BY MOUTH ONCE A DAY Gimoti 15 mg/spray spray with pump 1 spray intranasal QID Qty: 9.8 5RF Rx Instructions: administer into ONE nostril 30 minutes before each meal and at bedtime (DME) blood-glucose meter [True Metrix Glucose Meter] Misc See Rx Instructions .ROUTE .COMPLEX Qty: 1 0RF Dose Instruction: USE DIRECTED Rx Instructions: USE DIRECTED (DME) lancets [TRUEplus Lancets] 28 gauge misc See Rx Instructions .ROUTE .COMPLEX Qty: 100 0RF Dose Instruction: CHECK BLOOD SUGAR ONCE OR TWICE A A DAY Rx Instructions: CHECK BLOOD SUGAR ONCE OR TWICE A A DAY tamsulosin [Flomax] 0.4 mg capsule 0.4 mg PO DAILY Qty: 90 3RF (DME) True Metrix Glucose Test Strip Strip See Rx Instructions .Route Qty: 100 0RF Rx Instructions: Use to check blood sugar daily and prn diphenoxylate-atropine [Lomotil] 2.5-0.025 mg tablet 1 tab PO TID PRN (Reason: diarrhea) Qty: 14 1RF cholestyramine (with sugar) [Questran] 4 gram powder 4 g PO BID Qty: 378 4RF Rx Instructions: administer w/meal; avoid other meds within 1hr before or 4-6hr after dose Creon 36,000-114,000- 180,000 unit capsule,delayed release(DR/EC) 2 cap PO .With meals Qty: 200 12RF Rx Instructions: 2 capsules p.o. with meals and 1 capsule with snacks tamsulosin [Flomax] 0.4 mg capsule 0.4 mg PO DAILY Qty: 30 2RF nicotine 21 mg/24 hr patch 24 hour 1 patch transdermal DAILY Qty: 28 5RF metformin 1,000 mg tablet See Rx Instructions .ROUTE .COMPLEX Qty: 60 0RF Dose Instruction: TAKE ONE TABLET BY MOUTH 2 TIMES A DAY Rx Instructions: TAKE ONE TABLET BY MOUTH 2 TIMES A DAY cefdinir 300 mg capsule 300 mg PO BID Qty: 20 0RF gabapentin 300 mg capsule 300 mg PO BID Qty: 60 2RF Referrals Follow up/Referrals: Pineda Glover MD [Primary Care Provider] - See instructions Activity Restrictions/Add. Instructions Additional Instructions/Restrictions: No weight bearing rest Ice with cold pack for 20 minutes remove may repeat for comfort every hour Splint for support and swelling no less in the shower. Be sure not too tight but not to lose either Elevate with ankle above your heart as much as possible to help reduce swelling and therefore pain Ibuprofen every 6 hours as needed for pain or inflammation. If needs something more you can take Tylenol every 4 hours as needed as long as her primary care has told he was okayed for you to take both. Follow-up immediately if new or worsening symptoms or no noticeable improvement over the next 3-[address] Encarnacion on Saturday at 830. Dr. Encarnacion notified and wants you to stop by the office at 830 on Thursday 11/09 to be seen Clinical Impressions Clinical Impression: Fibula fracture Instructions Patient Instructions: Fibula Shaft Fracture Print Language Print Language: Malagasy Discharge ED Provider: Oscar ([facility] [place] General Stated complaint: AO 1-24 fell and hurt right ankle , leg Mode of Arrival: Ambulatory Source of Information: Patient Time Seen by Provider: 11/07/24 17:27 Description of Symptoms (Recalled from Triage Doc. by RN): RIGHT ANKLE INJURY, SICK TO STOMACH HEENT Symptoms (Recalled from RN notes): No Resp Symptoms (Recalled from RN notes): No Skin Symptoms (Recalled from RN notes): No MS Symptoms (Recalled from RN notes): Yes Functional Status (Recalled from RN notes): HURTS TO WALK ON RIGHT ANKLE History of Present Illness Provider Complaint: 54-year-old male presents for right ankle pain patient states he slipped on the ice last night twisted his foot under the car. Patient states he is also nauseous Related Data Home Medications ?Medication ?Instructions ?Recorded ?Confirmed pantoprazole 40 mg tablet,delayed 40 mg PO DAILY 02/03/24 10/15/24 release Previous Rx's ?Medication ?Instructions ?Recorded blood-glucose meter (True Metrix ##1 01/11/23 Glucose Meter) lancets 28 gauge (TRUEplus Lancets) #100 ea 05/09/23 dapagliflozin propanediol 10 mg 10 mg PO DAILY #90 tabs 11/18/23 tablet (Farxiga) quetiapine 200 mg tablet (Seroquel) 200 mg PO DAILY #90 tabs 02/03/24 tamsulosin 0.4 mg capsule (Flomax) 0.4 mg PO DAILY #90 caps 03/02/24 blood sugar diagnostic (True #100 ea 04/28/24 Metrix Glucose Test Strip) escitalopram oxalate 20 mg tablet 20 mg PO DAILY #90 tabs 05/01/24 (Lexapro) diphenoxylate-atropine 2.5 1 tab PO TID PRN diarrhea #14 tabs 06/22/24 mg-0.025 mg tablet (Lomotil) cholestyramine (with sugar) 4 gram 4 g PO BID #378 grams 07/10/24 oral powder (Questran) njotgu-zvxiegwr-qcehlef 1 cap PO TID #100 caps 07/21/24 36,000-114,000-180,000 unit capsule,delay rel (Creon) rifaximin 550 mg tablet (Xifaxan) 550 mg PO TID #42 tabs 07/21/24 ehezui-samnfeqk-pninvcz 2 cap PO .With meals #200 caps 07/27/24 36,000-114,000-180,000 unit capsule,delay rel (Creon) pvaxdhtt-atquurmor-fwqjufeey 3.5 4 drp otic (ear) Q6H 10 days #10 mL 08/10/24 mg-10,000 unit/mL-1 % ear drops,susp tamsulosin 0.4 mg capsule (Flomax) 0.4 mg PO DAILY #30 caps 08/14/24 aspirin 81 mg tablet,delayed 81 mg PO DAILY #90 tabs 09/08/24 release (Adult Low Dose Aspirin) atorvastatin 40 mg tablet 40 mg PO HS #90 tabs 09/08/24 hydrochlorothiazide 25 mg tablet 25 mg PO DAILY #90 tabs 09/08/24 losartan 100 mg tablet See Rx Instructions .Route 09/08/24 .COMPLEX #90 tabs metoprolol succinate 200 mg 200 mg PO DAILY #90 tabs 09/08/24 tablet,extended release 24 hr nicotine 21 mg/24 hr daily 1 patch transdermal DAILY #28 ea 09/09/24 transdermal patch metformin 1,000 mg tablet See Rx Instructions .Route 09/22/24 .COMPLEX #60 tabs cefdinir 300 mg capsule 300 mg PO BID #20 caps 10/12/24 metoclopramide HCl 15 mg/spray 1 spray intranasal QID #9.8 mL 10/15/24 nasal spray with pump (Gimoti) cefdinir 300 mg capsule 300 mg PO BID 10 days #20 caps 10/30/24 gabapentin 300 mg capsule 300 mg PO BID #60 caps 11/04/24 Allergies Allergy/AdvReac Type Severity Reaction Status Date / Time venom-honey bee Allergy Severe Anaphylaxis Verified 10/15/24 13:31 nickel Allergy Unknown Hives Verified 10/15/24 13:31 adhesive tape Allergy Rash Verified 10/15/24 13:31 Worker's Comp Is this a Worker's Comp case?: No [facility] Disclaimer: The information contained in this section may have been updated after the patient was seen, as this information can be updated by other users. 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) Smoking Status: Current every day smoker tobacco type: cigarettes packs per day: 1 second hand exposure: No alcohol intake: never substance use type: denies use current occupational status: disabled Travel in the last 8 weeks: None household members: family housing: house current occupational exposures/hazards: No caffeine: Yes Have you lived/traveled outside [place] in past 30 days?: No Contact w/someone who lives/traveled outside US past 30 days?: No Exposure to someone with infectious disease in past 14 days?: No Do you have a fever (greater than 100.4 F or 38 C)?: No Have you tested positive for COVID-19: No Exposed to someone with COVID-19 in past 14 days?: No Do you have a sore throat?: No Do you have a cough?: No Do you have any weakness?: No Do you have any diarrhea?: No Are you experiencing any unusual bleeding?: No Do you have any muscle aches/pain?: No Do you have any abdominal pain?: No Are you experiencing loss of taste or smell?: No ROS Obtained: Yes Systems reviewed as appropriate & no additional complaints except as documented Musculoskeletal Musculoskeletal: Reports system reviewed and no additional complaints, except as documented, Reports as per HPI, Reports arthralgias, Reports joint swelling and Reports limited range of motion Physical Exam General General appearance: alert and in no apparent distress ENT ENT exam: Present normal exam Respiratory Respiratory exam: Present normal lung sounds bilaterally Cardiovascular Cardiovascular exam: Present regular rate and normal rhythm Abdominal Exam Abdominal exam: Present soft and normal bowel sounds Expanded Lower Extremity Exam Right: Ankle image: 1. Swelling, bruise, tender to palpate Neurological Exam Neurological exam: Present alert and oriented X3 Medical Decision Making Medical Records Medical records reviewed: Yes I reviewed the patient's medical records. Screening: Per USPSTF and CDC recommendations, given the prevalence of disease in our region, it is our hospital?s policy to screen for HIV and viral Hepatitis for all patients aged 18 and over and those with ongoing risk factors. Chidi Inquiry Pt receiving controlled substance: No Vital Signs: 11/07/24 17:38 Temperature 98.2 F Temperature Source Oral Pulse Rate [Left Radial] 88 Respiratory Rate 18 Blood Pressure [Left Arm] 120/59 L Blood Pressure Mean [Left Arm] 79 02 Sat by Pulse Oximetry 96 Orders (Tests/Meds): ORDERS Category Date Time Status Tibia/fibula XR right 2 views [XR tibia fibula RT 2V] Exams 11/07/24 17:19 Taken Stat XR ankle RT min 3V Stat Exams 11/07/24 17:19 Taken Radiology Data #1: Image(s): Tib/Fib Image Reviewed: Yes I reviewed the patient's radiology image Preliminary Findings: Abnormal Mild displaced fibula fracture Physician Consults Physician Consulted: Dr. Fraser Time: 17:56 Reason -: Orthopedic Eval/Care Comment/Response: Splint, crutches, no weightbearing, will see the patient Saturday at 830
[2024-11-07 18:10] VITALS: BP 120/59; PULSE 88; RESP 18; TEMP 36.8
== END 2024-11-07 18:10 | disposition home or self-care (01) ==
PROVIDERS: Emergency Provider Nurse Practitioner Family; PCP Family Medicine
DX: S82.409A Unspecified fracture of shaft of unspecified fibula, initial encounter for closed fracture (principal)
CPT/HCPCS: 73590; 73610; 99214; G0381

== ENCOUNTER 2024-11-16 11:49 | Outpatient (CLI) | payer MEDICARE, SELFPAY ==
--- NOTE | 2024-11-16 11:51 | XR_ITS ---
FINAL REPORT CLINICAL HISTORY: R Fib fX COMPARISON: None FINDINGS: RIGHT FOOT Three views demonstrate no acute fracture or dislocation. The joint spaces appear normal. No acute soft tissue abnormality is seen. An overlying cast is present. IMPRESSION: No acute bony abnormality. Reviewed, Interpreted and Dictated by Ronaldo Real MD Transcribed by Amanda Bai Authenticated and [facility]
--- NOTE | 2024-11-16 12:21 | XR_ITS ---
FINAL REPORT CLINICAL HISTORY: Right Fibula fx COMPARISON: None FINDINGS: RIGHT ANKLE 3 views of the right ankle were obtained. There is a mildly displaced oblique fracture of the distal fibula. The mortise is intact. The bones are well-mineralized. Visualized joint spaces are normally aligned. Soft tissues are unremarkable. IMPRESSION: Mildly displaced oblique fracture of the distal fibula. Reviewed, Interpreted and Dictated by Ronaldo Real MD Transcribed by Amanda Bai Authenticated and [facility]
== END 2024-11-16 23:59 | disposition home or self-care (01) ==
LOC: RAD 11:49
PROVIDERS: PCP Family Medicine; Visit Provider Podiatrist
DX: M79.671 Pain in right foot (principal); M79.672 Pain in left foot; S82.831A Other fracture of upper and lower end of right fibula, initial encounter for closed fracture; S99.911A Unspecified injury of right ankle, initial encounter
CPT/HCPCS: 73610; 73630

== ENCOUNTER 2024-11-19 09:49 | Outpatient (CLI) | payer MEDICARE, SELFPAY ==
--- NOTE | 2024-11-19 09:51 | US_ITS ---
FINAL REPORT CLINICAL HISTORY: decreased sensation, discoloration of skin,DM,HTN,HLD,PRIOR FX RT ANKLE COMPARISON: None FINDINGS: ANKLE-BRACHIAL PRESSURE INDICES Pressure indices are as follows: RIGHT LOWER EXTREMITY: Ankle-brachial pressure index: 1.1 Comments: Normal LEFT LOWER EXTREMITY: Ankle-brachial pressure index: 1.1 Comments: Normal CONCLUSION: No evidence of significant obstructive peripheral vascular disease of the lower extremities Reviewed, Interpreted and Dictated by Ronaldo Real MD Transcribed by Liana Recio Authenticated and [facility]
== END 2024-11-19 23:59 | disposition home or self-care (01) ==
LOC: RT 09:50
PROVIDERS: PCP Family Medicine; Visit Provider Podiatrist
DX: R09.89 Other specified symptoms and signs involving the circulatory and respiratory systems (principal)
CPT/HCPCS: 93923

== ENCOUNTER 2024-12-05 15:28 | Outpatient (CLI) | payer MEDICARE, SELFPAY ==
--- NOTE | 2024-12-05 15:35 | XR_ITS ---
PROCEDURE INFORMATION: Exam: XR Right Ankle Exam date and time: 12/05/2024 3:36 PM Age: 54 years old Clinical indication: Pain; Ankle; Right; Additional info: Fibula fracture TECHNIQUE: Imaging protocol: Radiologic exam of the right ankle. Views: 3 or more views. COMPARISON: CR XR ANKLE WT BEARING RT MIN 3V 11/16/2024 12:22 PM FINDINGS: Bones/joints: Acute, mildly displaced oblique fracture of the distal fibular diametaphysis, similar to comparison study. Soft tissues: Moderate lateral ankle soft tissue swelling. IMPRESSION: 1. Acute, mildly displaced oblique fracture of the distal fibular diametaphysis, similar to comparison study. 2. Moderate lateral ankle soft tissue swelling.
== END 2024-12-05 23:59 | disposition home or self-care (01) ==
LOC: RAD 15:31
PROVIDERS: PCP Family Medicine; Visit Provider Podiatrist
DX: M25.571 Pain in right ankle and joints of right foot (principal); S82.831A Other fracture of upper and lower end of right fibula, initial encounter for closed fracture
CPT/HCPCS: 73610

== ENCOUNTER 2024-12-25 14:39 | Outpatient (CLI) | payer MEDICARE, SELFPAY ==
[2024-12-25 15:18] LABS: Coronavirus 19, PCR Not Detected (NotDetected); Human Rhinovirus Not Detected (NotDetected); Influenza A, PCR Not Detected (NotDetected); Influenza B, PCR Not Detected (NotDetected); Respiratory Syncytial Virus Not Detected (NotDetected)
== END 2024-12-25 23:59 | disposition home or self-care (01) ==
LOC: LAB.DROPOF 12-28 12:28
PROVIDERS: PCP Nurse Practitioner; Visit Provider Nurse Practitioner
DX: J06.9 Acute upper respiratory infection, unspecified (principal)
CPT/HCPCS: 87631

== ENCOUNTER 2025-01-05 15:56 | Outpatient (CLI) | payer MEDICARE, SELFPAY ==
--- NOTE | 2025-01-05 16:00 | XR_ITS ---
FINAL REPORT CLINICAL HISTORY: f/u on right ankle pain/fracture COMPARISON: 12/05/2024 FINDINGS: AP, oblique, and lateral views of the right ankle were obtained. There has been no change in alignment of the fracture of the lateral malleolus. No significant increase callus formation is noted degenerative joint disease of the ankle. No new osseous abnormality. Improved lateral soft tissue edema. IMPRESSION: Stable lateral malleolar fracture with improved soft tissue edema. Reviewed, Interpreted and Dictated by Yana Pulido MD Transcribed by Isabela Carl Authenticated and [facility]
== END 2025-01-05 23:59 | disposition home or self-care (01) ==
LOC: RAD 15:57
PROVIDERS: PCP Family Medicine; Visit Provider Podiatrist
DX: M25.571 Pain in right ankle and joints of right foot (principal); S82.831A Other fracture of upper and lower end of right fibula, initial encounter for closed fracture
CPT/HCPCS: 73610

== ENCOUNTER 2025-01-12 14:20 | Outpatient (CLI) | payer MEDICARE, SELFPAY ==
[2025-01-12 20:22] LABS: Alanine Aminotransferase 21 U/L (12-78); Albumin Level 4.4 g/dl (3.5-5.0); Albumin/Globulin Ratio 1.5 (1.1-1.8); Alkaline Phosphatase 63 U/L (38-126); Anion Gap 16.4 mEq/L (5-15); Aspartate Amino Transferase 24 U/L (17-59); Bilirubin,Total 0.5 mg/dl (0.2-1.3); Blood Urea Nitrogen 7 mg/dl (9-20); Calcium 9.1 mg/dl (8.4-10.2); Carbon Dioxide 22 mmol/L (22.0-30.0); Chloride 98 mmol/L (98-107); Estimated Glomerular Filt Rate 88 ml/min (>60); GFR (African American) 106 ML/MIN (>60); Globulin 2.9 g/dL (1.3-3.2); Glucose 72 mg/dl (74-100); Potassium 4.4 mmoL/L (3.5-5.1); Sodium 132 mmol/L (136-145); Total Protein,Serum 7.3 g/dl (6.3-8.2)
[2025-01-12 20:52] LABS: Prostate Specific Ag Screen 0.3 ng/ml (0.0-4.0)
== END 2025-01-12 23:59 | disposition home or self-care (01) ==
LOC: LAB.DROPOF 01-13 14:04
PROVIDERS: PCP Family Medicine; Visit Provider Family Medicine
DX: N40.0 Benign prostatic hyperplasia without lower urinary tract symptoms (principal); E11.42 Type 2 diabetes mellitus with diabetic polyneuropathy; I65.29 Occlusion and stenosis of unspecified carotid artery
CPT/HCPCS: 80053; G0103

== ENCOUNTER 2025-01-28 13:34 | Outpatient (CLI) | payer MEDICARE, SELFPAY ==
--- OUTSIDE RECORDS SUMMARY | 2025-01-28 13:36 | XMS_ITS | Data Portability ---
Author Organization [facility] Address [address] [place] [address] Care Team Providers Care Automobile Brake Bonder Name Role Phone PIEDAD LEIGHANN Primary Care Provider [phone] Assessment Encounter Date Assessment Date Assessment LastModified by Organization Details LastModified Time 11/05/2019 11/05/2019 We discussed the diagnosis of testicular hypofunction. We discussed options of testosterone replacement therapy. We discussed risks of testosterone replacement therapy including cardiovascular disease, stroke risk, hepatic dysfunction, polycythemia, prostate growth benign and cancerous, etc. Confirmatory testosterone level. [email or web address] Not available 11/05/2019 16:18:55 11/19/2019 11/19/2019 We reviewed the risks of testosterone replacement therapy including cardiovascular disease, stroke risk, hepatic dysfunction, polycythemia, prostate growth - benign and cancerous, decreased sperm count, etc. After reviewing the risks he would like to proceed with replacement therapy. [email or web address] Not available 11/19/2019 14:19:55 03/24/2020 03/24/2020 We reviewed the risks of testosterone replacement therapy including cardiovascular disease, stroke risk, hepatic dysfunction, polycythemia, prostate growth - benign and cancerous, decreased sperm count, etc. Testosterone dose increased to 4 pumps daily. Follow-up with laboratory studies. [email or web address] Not available 03/27/2020 14:03:33 Plan of Treatment Reminders Order Date Submit Date Provider Last Modified By Organization Details Last Modified Time Details Appointments None recorded. Lab PSA, serum or plasma 2019 020 [email or web address] Not available 0 14:47:52 testosteron e, free + total, serum 2019 020 [email or web address] Not available 0 14:47:52 CMP, serum or plasma 2019 020 [email or web address] Not available 0 10:53:49 urinalysis, dipstick, auto 2019 020 [email or web address] [facility] Extended Services With [address], [place], [address], 0 14:03:10 CBC 2019 020 [email or web address] Not available 0 14:47:52 urinalysis, dipstick, auto 2019 020 [email or web address] 14 [facility] Extended Services With [address], [place], [address], 0 15:58:32 Referral None recorded. Procedures None recorded. Surgeries None recorded. Imaging None recorded. Medication Orders testosteron e 20.25 mg/1.25 gram per pump act.(1.62 %) transdermal gel 2019 020 [email or web address] Not available 0 15:25:51 Patient TargetsNo targets recorded. Patient Instructions Encounter Date Encounter Id Patient Instructions Last Modified By Organization Details Last Modified Time 03/24/2020 [id number] learning about healthy weight Not available 03/27/2020 14:03:10 Reason for Referral None Reported. Results Created Date Observation Date Name Description Value Unit Range Abnormal Flag Note LastModifiedBy Organization Detail LastModifiedTime 03/24/20 20 03/24/2020 urina lysis , dipst ick, auto Unknown Analyte Yellow Not Available [facility] Extended Services With [address], [place], [address], 03/24/2020 16:00:52 03/24/20 20 03/24/2020 urina lysis , dipst ick, auto Unknown Analyte Clear Not Available [facility] Extended Services With [address], [place], [address], 03/24/2020 16:00:52 03/24/20 20 03/24/2020 urina lysis , dipst ick, auto Unknown Analyte 1.000 Not Available [facility] Extended Services With [address], [place], [address], 03/24/2020 16:00:52 03/24/20 20 03/24/2020 urina lysis , dipst ick, auto Unknown Analyte 1.003 - 1.035 Not Available [facility] Extended Services With [address], [place], [address], 03/24/2020 16:00:52 03/24/20 20 03/24/2020 urina lysis , dipst ick, auto Unknown Analyte 6.5 Not Available [facility] Extended Services With [address], [place], [address], 03/24/2020 16:00:52 03/24/20 20 03/24/2020 urina lysis , dipst ick, auto Unknown Analyte 5.0 - 8.0 Not Available [facility] Extended Services With [address], [place], [address], 03/24/2020 16:00:52 03/24/20 20 03/24/2020 urina lysis , dipst ick, auto Unknown Analyte Negati ve Not Available [facility] Extended Services With [address] [place], [address], 03/24/2020 16:00:52 03/24/20 20 03/24/2020 urina lysis , dipst ick, auto Unknown Analyte Negati ve Not Available [facility] Extended Services With [address], [place], [address], 03/24/2020 16:00:52 03/24/20 20 03/24/2020 urina lysis , dipst ick, auto Unknown Analyte Negati ve Not Available [facility] Extended Services With [address], [place], [address], 03/24/2020 16:00:52 03/24/20 20 03/24/2020 urina lysis , dipst ick, auto Unknown Analyte Negati ve Not Available [facility] Extended Services With [address], [place], [address], 03/24/2020 16:00:52 03/24/20 20 03/24/2020 urina lysis , dipst ick, auto Unknown Analyte Negtiv e Not Available [facility] Extended Services With [address] [place], [address], 03/24/2020 16:00:52 03/24/20 20 03/24/2020 urina lysis , dipst ick, auto Unknown Analyte Negati ve - Trace Not Available [facility] Extended Services With [address], [place], [address], 03/24/2020 16:00:52 03/24/20 20 03/24/2020 urina lysis , dipst ick, auto Unknown Analyte Normal Not Available [facility] Extended Services With [address], [place], [address], 03/24/2020 16:00:52 03/24/20 20 03/24/2020 urina lysis , dipst ick, auto Unknown Analyte Normal Not Available [facility] Extended Services With [address], [place], [address], 03/24/2020 16:00:52 03/24/20 20 03/24/2020 urina lysis , dipst ick, auto Unknown Analyte Negati ve Not Available [facility] Extended Services With [address], [place], [address], 03/24/2020 16:00:52 03/24/20 20 03/24/2020 urina lysis , dipst ick, auto Unknown Analyte Negati ve Not Available [facility] Extended Services With [address], [place], [address], 03/24/2020 16:00:52 03/24/20 20 03/24/2020 urina lysis , dipst ick, auto Unknown Analyte Normal Not Available [facility] Extended Services With [address] [place], [address], 03/24/2020 16:00:52 03/24/20 20 03/24/2020 urina lysis , dipst ick, auto Unknown Analyte Normal - 1mg/dl Not Available [facility] Extended Services With [address], [place], [address], 03/24/2020 16:00:52 03/24/20 20 03/24/2020 urina lysis , dipst ick, auto Unknown Analyte Negati ve Not Available [facility] Extended Services With [address] [place], [address], 03/24/2020 16:00:52 03/24/20 20 03/24/2020 urina lysis , dipst ick, auto Unknown Analyte Negati ve Not Available [facility] Extended Services With [address] [place], [address], 03/24/2020 16:00:52 03/24/20 20 03/24/2020 urina lysis , dipst ick, auto Unknown Analyte Negati ve Not Available [facility] Extended Services With [address] [place], [address], 03/24/2020 16:00:52 03/24/20 20 03/24/2020 urina lysis , dipst ick, auto Unknown Analyte Negati ve Not Available [facility] Extended Services With [address], [place], [address], 03/24/2020 16:00:52 03/24/20 20 03/24/2020 urina lysis , dipst ick, auto Unknown Analyte Clean Catch Not Available [facility] Extended Services With [address] [place], [address], 03/24/2020 16:00:52 03/24/20 20 03/24/2020 urina lysis , dipst ick, auto Unknown Analyte Automa hanna Not Available [facility] Extended Services With [address] [place], [address], 03/24/2020 16:00:52 11/05/19 20 11/05/2019 urina lysis , dipst ick, auto Unknown Analyte Yellow Not Available [facility] Extended Services With [address], [place], [address], 11/05/2019 16:22:58 11/05/19 20 11/05/2019 urina lysis , dipst ick, auto Unknown Analyte Clear Not Available [facility] Extended Services With [address], [place], [address], 11/05/2019 16:22:58 11/05/19 20 11/05/2019 urina lysis , dipst ick, auto Unknown Analyte 1.010 Not Available [facility] Extended Services With [address] [place], [address], 11/05/2019 16:22:58 11/05/19 20 11/05/2019 urina lysis , dipst ick, auto Unknown Analyte 1.003 - 1.035 Not Available [facility] Extended Services With [address], [place], [address], 11/05/2019 16:22:58 11/05/19 20 11/05/2019 urina lysis , dipst ick, auto Unknown Analyte 8.0 Not Available [facility] Extended Services With [address] [place], [address], 11/05/2019 16:22:58 11/05/19 20 11/05/2019 urina lysis , dipst ick, auto Unknown Analyte 5.0 - 8.0 Not Available [facility] Extended Services With [address], [place], [address], 11/05/2019 16:22:58 11/05/19 20 11/05/2019 urina lysis , dipst ick, auto Unknown Analyte Negati ve Not Available [facility] Extended Services With [address], [place], [address], 11/05/2019 16:22:58 11/05/19 20 11/05/2019 urina lysis , dipst ick, auto Unknown Analyte Negati ve Not Available [facility] Extended Services With [address] [place], [address], 11/05/2019 16:22:58 11/05/19 20 11/05/2019 urina lysis , dipst ick, auto Unknown Analyte Negati ve Not Available [facility] Extended Services With [address] [place], [address], 11/05/2019 16:22:58 11/05/19 20 11/05/2019 urina lysis , dipst ick, auto Unknown Analyte Negati ve Not Available [facility] Extended Services With [address], [place], [address], 11/05/2019 16:22:58 11/05/19 20 11/05/2019 urina lysis , dipst ick, auto Unknown Analyte Negtiv e Not Available [facility] With [address] [place], [address], 11/05/2019 16:22:58 11/05/19 20 11/05/2019 urina lysis , dipst ick, auto Unknown Analyte Negati ve - Trace Not Available [facility] Extended Services With [address], [place], [address], 11/05/2019 16:22:58 11/05/19 20 11/05/2019 urina lysis , dipst ick, auto Unknown Analyte Normal Not Available [facility] Extended Services With [address] [place], [address], 11/05/2019 16:22:58 11/05/19 20 11/05/2019 urina lysis , dipst ick, auto Unknown Analyte Normal Not Available [facility] Extended Services With [address] [place], [address], 11/05/2019 16:22:58 11/05/19 20 11/05/2019 urina lysis , dipst ick, auto Unknown Analyte Negati ve Not Available [facility] Extended Services With [address] [place], [address], 11/05/2019 16:22:58 11/05/19 20 11/05/2019 urina lysis , dipst ick, auto Unknown Analyte Negati ve Not Available [facility] With [address] [place], [address], 11/05/2019 16:22:58 11/05/19 20 11/05/2019 urina lysis , dipst ick, auto Unknown Analyte Normal Not Available [facility] Extended Services With [address], [place], [address], 11/05/2019 16:22:58 11/05/19 20 11/05/2019 urina lysis , dipst ick, auto Unknown Analyte Normal - 1mg/dl Not Available [facility] Extended Services With [address], [place], [address], 11/05/2019 16:22:58 11/05/19 20 11/05/2019 urina lysis , dipst ick, auto Unknown Analyte Negati ve Not Available [facility] Extended Services With [address] [place], [address], 11/05/2019 16:22:58 11/05/19 20 11/05/2019 urina lysis , dipst ick, auto Unknown Analyte Negati ve Not Available [facility] Extended Services With [address], [place], [address], 11/05/2019 16:22:58 11/05/19 20 11/05/2019 urina lysis , dipst ick, auto Unknown Analyte Negati ve Not Available [facility] Extended Services With [address], [place], [address], 11/05/2019 16:22:58 11/05/19 20 11/05/2019 urina lysis , dipst ick, auto Unknown Analyte Negati ve Not Available [facility] Extended Services With [address], [place], [address], 11/05/2019 16:22:58 11/05/19 20 11/05/2019 urina lysis , dipst ick, auto Unknown Analyte Clean Catch Not Available [facility] Extended Services With [address], [place], [address], 11/05/2019 16:22:58 11/05/19 20 11/05/2019 urina lysis , dipst ick, auto Unknown Analyte Automa hanna Not Available [facility] Extended Services With [address], [place], [address], 11/05/2019 16:22:58 Result Notes None recorded. Medical Equipment None Reported. Allergies Allergen ID Allergen Name Allergen Category Reaction Reaction Severity Criticality Documentation Date Start Date Code Code System Note Provider Name and Address Organization Details Recorded Time 955160 adhesive environme nt,medica tion Not available Not available Not available 11/05/2019 [id number] UNK Deseriee [facility] 0 16:18:27 Medications Name Sig Start Date Stop Date Status Note LastModified by Organization Details LastModified Time lisinopril 20 mg tablet Daily active Frequency: daily;Medi cation Descriptio n: lisinopril ; Dosage:1; Route:oral ; refills:0 Not Available Not Available Not Available lithium carbonate ER 300 mg tablet,ext ended release active Medication Descriptio n: lithium; Route:oral ; refills:0 Not Available Not Available Not Available citalopram 20 mg tablet Daily active Frequency: daily;Medi cation Descriptio n: citalopram ; Dosage:3; Route:oral ; refills:0 Not Available Not Available Not Available buspirone 10 mg tablet active Medication Descriptio n: buspirone; Route:oral ; refills:0 Not Available Not Available Not Available oxybutynin chloride ER 5 mg tablet,ext ended release 24 hr active Not Available Not Available Not Available doxazosin 4 mg tablet active Medication Descriptio n: doxazosin; Route:oral ; refills:0 Not Available Not Available Not Available oxybutynin chloride 5 mg tablet active Not Available Not Available No t Available sildenafil (pulmonary hypertensi on) 20 mg tablet TAKE 1 TO 2 TABLETS BY MOUTH EVERY DAY NEEDED 2018 active Not Available Not Available Not Avai lable Seroquel 400 mg tablet active Medication Descriptio n: quetiapine ; Route:oral ; refills:0 Not Available Not Available Not Available testostero ne 20.25 mg/1.25 gram per pump act.(1.62 %) transderma l gel 2019 active Not Available Not Available Not Avai lable Vitals Date Recorded Body height Body mass index (BMI) Body weight Provider Name and Address Organization Details Last Updated DateTime 11/05/2019 177.8 cm 30.4 kg/m2 99252.58 g [facility] 11/05/2019 16:18:13 Date Recorded Body height Body mass index (BMI) Body weight Provider Name and Address Organization Details Last Updated DateTime 11/19/2019 177.8 cm 30.4 kg/m2 43697.58 g [facility] 11/19/2019 13:59:31 Date Recorded Body height Body mass index (BMI) Body weight Body temperature Provider Name and Address Organization Details Last Updated DateTime 03/24/2020 177.8 cm 30.4 kg/m2 13536.58 g 98 [degF] [facility] 03/24/2020 16:00:10 Social History Question Answer Notes LastModified by Organizat ion Details LastModified Time Tobacco Smoking Status Former Smoker [facility] 11/05/2019 16:19:39 What Is Your Level Of Alcohol Consumption? None Information not available 11/05/2019 Marital Status Informatio n not available 11/05/2019 Sex: Unknown Functional Status None recorded. Mental Status None recorded. Family History Relationship Description Onset Age of this Age Resolved Age Notes LastModified by Organization Details LastModified Time Unspecified Relation Malignant tumor of prostate kasey Not available 2019 16:19:01 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 Condition Response Emphysema Y Diabetes Y Anxiety Disorder Y Anemia Y Hypertension Y Depression Y High Cholesterol Y Past Encounters Encounter ID Performer Location Encounter Start Date Encounter Closed Date Diagnosis/Indication Diagnosis SNOMED-CT Code Diagnosis ICD10 Code Diagnosis Note [id number] ADAM GARZON MD [facility] [address] [place] [address],[address] [place] [address] 11/05/2019 14:19:05 11/05/2019 15:41:41 Testicular hypofunction 594078815 E29.1 [id number] ADAM GARZON MD [facility] [address] [address] 11/19/2019 13:22:20 11/19/2019 13:59:07 Testicular hypofunction 881615059 E29.1 [id number] ADAM GARZON MD [facility] [address] [address] 03/24/2020 14:15:00 03/24/2020 15:27:39 Benign prostatic hyperplasia with outflow obstruction 237455203 N40.1 Testicular hypofunction 882853333 E29.1 Secondary polycythemia 13414420 D75.1 Liver func tion tests outside reference range 873388662 R94.5 Benign pro static hyperplasia 115436969 N40.1 Health Concerns Section Related Observation LastModified by Organization Detai ls LastModified Time None Recorded Concern Status LastModified by Organization Details LastModified Time None Recorded Advance Directives Directive None Recorded Payers Encounter Date Sequence Insurance Name Policy Number Policy Rodriguez Covered Member ID Rodriguez Member ID Guarantor Name 11/05/2019 1 [employer] (PPO[employer] [place] Gr [id number] [place] Gr 11/19/2019 1 [employer] [place] Gr [id number] [place] Gr 03/24/2020 1 [employer]PP[employer] Gr [id number] Pon[employer] Jovita Gr Notes Date Note Type Note Provider Name and Address Organization Details Recorded Time 11/05/2019 text/html 49-year-old male in the office for consultation and evaluation of testicular hypofunction. Testosterone from August 2019 was 191. He has been treated for testicular hypofunction several years ago. He has erectile dysfunction and takes sildenafil. He has difficulties obtaining and maintaining an erection. He has low libido and low energy. He voids every 1-2 hours with nocturia up to 3 times nightly. He reports hesitancy and occasional urgency. He denies hematuria but does report dysuria. ADAM GARZON MD [address] [place] [address], [address], [facility] 11/08/2019 15:59:13 11/19/2019 text/html 49-year-old male in the office for follow-up evaluation of testicular hypofunction. Testosterone from August 2019 was 191. He was rechecked in October 2018 and confirmed low at 224. He has erectile dysfunction and takes sildenafil. He has difficulties obtaining and maintaining an erection. He has low energy level and low libido. He voids every 1-2 hours with nocturia 2-3 times nightly. ADAM GARZON MD [facility] [place], [address], [facility] 11/21/2019 17:04:02 03/24/2020 text/html 49-year-old male in the office for follow-up evaluation of testicular hypofunction. He uses testosterone 1.62% transdermal gel, 2 pumps daily. He continues to have low energy level and low libido. He has troubles obtaining and maintaining an erection. Testosterone from 03/09/20 was 187 and PSA normal at 0.44. ADAM GARZON MD [facility] [place], [address], [facility] 03/27/2020 14:04:15
--- OUTSIDE RECORDS SUMMARY | 2025-01-28 13:36 | XMS_ITS ---
Author Organization Unknown TREATMENT PLAN [facility] Start Date Provider Encounter for Check-up [id number] [facility]
--- NOTE | 2025-01-28 13:45 | CA_ITS ---
FINAL REPORT TECHNIQUE: Vo scale, color and spectral doppler images of the bilateral carotid arteries were obtained. CLINICAL HISTORY: DM, HTN, HLD, smoker COMPARISON: None FINDINGS: Peak systolic velocity in the right internal carotid artery is 104 cm/sec. The internal carotid to common carotid artery ratio is 1.14. There is no significant carotid artery stenosis and mild to moderate plaque formation. The right vertebral artery is normal in direction. Peak systolic velocity in the left internal carotid artery is 107 cm/sec. The internal carotid to common carotid artery ratio is 1.56. There is no significant carotid artery stenosis and mild to moderate plaque formation. The left vertebral artery is normal in direction. IMPRESSION: No ultrasound evidence of hemodynamically significant carotid artery stenosis. Normal peak systolic velocities and normal internal to common carotid artery ratios bilaterally. Antegrade flow bilateral vertebral arteries. Reviewed, Interpreted and Dictated by Ronaldo Real MD Transcribed by Liana Recio Authenticated and [facility]
== END 2025-01-28 23:59 | disposition home or self-care (01) ==
LOC: RT 13:35
PROVIDERS: PCP Family Medicine; Visit Provider Family Medicine
DX: I65.29 Occlusion and stenosis of unspecified carotid artery (principal); I10 Essential (primary) hypertension; F17.200 Nicotine dependence, unspecified, uncomplicated
CPT/HCPCS: 93880

== ENCOUNTER 2025-02-01 14:37 | Outpatient (CLI) | payer MEDICARE, SELFPAY ==
--- OUTSIDE RECORDS SUMMARY | 2025-02-01 14:39 | XMS_ITS | Data Portability ---
Author Organization [facility] Address [address] [place] [address] Care Team Providers Care Die Turner Name Role Phone PIEDAD LEIGHANN Primary Care Provider Assessment Encounter Date Assessment Date Assessment LastModified by Organization Details LastModified Time 11/05/2019 11/05/2019 We discussed the diagnosis of testicular hypofunction. We discussed options of testosterone replacement therapy. We discussed risks of testosterone replacement therapy including cardiovascular disease, stroke risk, hepatic dysfunction, polycythemia, prostate growth benign and cancerous, etc. Confirmatory testosterone level. [email or web address] Not available 11/05/2019 16:18:55 11/19/2019 11/19/2019 We reviewed the risks of testosterone replacement therapy including cardiovascular disease, stroke risk, hepatic dysfunction, polycythemia, prostate growth - benign and cancerous, decreased sperm count, etc. After reviewing the risks he would like to proceed with replacement therapy. [email or web address] Not available 11/19/2019 14:19:55 03/24/2020 03/24/2020 We reviewed the risks of testosterone replacement therapy including cardiovascular disease, stroke risk, hepatic dysfunction, polycythemia, prostate growth - benign and cancerous, decreased sperm count, etc. Testosterone dose increased to 4 pumps daily. Follow-up with laboratory studies. Not available 03/27/2020 14:03:33 Plan of Treatment [...] urinalysis, dipstick, auto 2019 020 [email or web address] 14 [facility] Extended Services With [address], [place], [address], 0 14:03:10 CBC 2019 020 [email or web address] Not available 0 14:47:52 urinalysis, dipstick, auto 2019 020 [email or web address] 14 [facility] Extended Services With [address], [place], [address], 0 15:58:32 Referral None recorded. Procedures None recorded. Surgeries None recorded. Imaging None recorded. Medication Orders testosteron e 20.25 mg/1.25 gram per pump act.(1.62 %) transdermal gel 2019 020 [email or web address] Not available 0 15:25:51 Patient TargetsNo targets recorded. Patient Instructions Encounter Date Encounter Id Patient Instructions Last Modified By Organization Details Last Modified Time 03/24/2020 [id number] learning about healthy weight [email or web address] Not available 03/27/2020 14:03:10 Reason for Referral None Reported. Results Created Date Observation Date Name Description Value Unit Range Abnormal Flag Note LastModifiedBy Organization Detail LastModifiedTime 03/24/20 20 03/24/2020 urina lysis , dipst ick, auto Unknown Analyte Yellow Not Available Counts include 234 beds at the [facility] Extended Services With [address], [place], [address], 03/24/2020 16:00:52 03/24/20 20 03/24/2020 urina lysis , dipst ick, auto Unknown Analyte Clear Not Available Counts include 234 beds at the [facility] Extended Services With [address], [place], [address], 03/24/2020 16:00:52 03/24/20 20 03/24/2020 urina lysis , dipst ick, auto Unknown Analyte 1.000 Not Available Counts include 234 beds at the [facility] Extended Services With [address], [place], [address], 03/24/2020 16:00:52 03/24/20 20 03/24/2020 urina lysis , dipst ick, auto Unknown Analyte 1.003 - 1.035 Not Available [facility] Extended Services With [address], [place], [address], 03/24/2020 16:00:52 03/24/20 20 03/24/2020 urina lysis , dipst ick, auto Unknown Analyte 6.5 Not Available Counts include 234 beds at the [facility] Extended Services With [address], [place], [address], 03/24/2020 16:00:52 03/24/20 20 03/24/2020 urina lysis , dipst ick, auto Unknown Analyte 5.0 - 8.0 Not Available [facility] Extended Services With [address], [place], [address], 03/24/2020 16:00:52 03/24/20 20 03/24/2020 urina lysis , dipst ick, auto Unknown Analyte Negati ve Not Available [facility] Extended Services With [address] [place], [address], 03/24/2020 16:00:52 03/24/20 20 03/24/2020 urina lysis , dipst ick, auto Unknown Analyte Negati ve Not Available [facility] Extended Services With [address], [place], [address], 03/24/2020 16:00:52 03/24/20 20 03/24/2020 urina lysis , dipst ick, auto Unknown Analyte Negati ve Not Available [facility] Extended Services With [address], [place], [address], 03/24/2020 16:00:52 03/24/20 20 03/24/2020 urina lysis , dipst ick, auto Unknown Analyte Negati ve Not Available [facility] Extended Services With [address], [place], [address], 03/24/2020 16:00:52 03/24/20 20 03/24/2020 urina lysis , dipst ick, auto Unknown Analyte Negtiv e Not Available [facility] Extended Services With [address] [place], [address], 03/24/2020 16:00:52 03/24/20 20 03/24/2020 urina lysis , dipst ick, auto Unknown Analyte Negati ve - Trace Not Available [facility] Extended Services With [address], [place], [address], 03/24/2020 16:00:52 03/24/20 20 03/24/2020 urina lysis , dipst ick, auto Unknown Analyte Normal Not Available Counts include 234 beds at the [facility] Extended Services With [address], [place], [address], 03/24/2020 16:00:52 03/24/20 20 03/24/2020 urina lysis , dipst ick, auto Unknown Analyte Normal Not Available Counts include 234 beds at the [facility] Extended Services With [address], [place], [address], 03/24/2020 16:00:52 03/24/20 20 03/24/2020 urina lysis , dipst ick, auto Unknown Analyte Negati ve Not Available [facility] Extended Services With [address], [place], [address], 03/24/2020 16:00:52 03/24/20 20 03/24/2020 urina lysis , dipst ick, auto Unknown Analyte Negati ve Not Available [facility] Extended Services With [address] [place], [place], [address], 03/24/2020 16:00:52 03/24/20 20 03/24/2020 urina lysis , dipst ick, auto Unknown Analyte Normal Not Available Counts include 234 beds at the [facility] Extended Services With [address] [place], [address], 03/24/2020 16:00:52 03/24/20 20 03/24/2020 urina lysis , dipst ick, auto Unknown Analyte Normal - 1mg/dl Not Available [facility] Extended Services With [address] [place], [place], [address], 03/24/2020 16:00:52 03/24/20 20 03/24/2020 urina lysis , dipst ick, auto Unknown Analyte Negati ve Not Available [facility] Extended Services With [address] [place], [address], 03/24/2020 16:00:52 03/24/20 20 03/24/2020 urina lysis , dipst ick, auto Unknown Analyte Negati ve Not Available [facility] Extended Services With [address] [place], [address], 03/24/2020 16:00:52 03/24/20 20 03/24/2020 urina lysis , dipst ick, auto Unknown Analyte Negati ve Not Available [facility] Extended Services With [address] [place], [address], 03/24/2020 16:00:52 03/24/20 20 03/24/2020 urina lysis , dipst ick, auto Unknown Analyte Negati ve Not Available [facility] Extended Services With [address], [place], [address], 03/24/2020 16:00:52 03/24/20 20 03/24/2020 urina lysis , dipst ick, auto Unknown Analyte Clean Catch Not Available [facility] Extended Services With [address] [place], [address], 03/24/2020 16:00:52 03/24/20 20 03/24/2020 urina lysis , dipst ick, auto Unknown Analyte Automa hanna Not Available [facility] Extended Services With [address] [place], [address], 03/24/2020 16:00:52 11/05/19 20 11/05/2019 urina lysis , dipst ick, auto Unknown Analyte Yellow Not Available Counts include 234 beds at the [facility] Extended Services With [address], [place], [address], 11/05/2019 16:22:58 11/05/19 20 11/05/2019 urina lysis , dipst ick, auto Unknown Analyte Clear Not Available Counts include 234 beds at the [facility] Extended Services With [address], [place], [address], 11/05/2019 16:22:58 11/05/19 20 11/05/2019 urina lysis , dipst ick, auto Unknown Analyte 1.010 Not Available Counts include 234 beds at the [facility] Extended Services With [address] [place], [address], 11/05/2019 16:22:58 11/05/19 20 11/05/2019 urina lysis , dipst ick, auto Unknown Analyte 1.003 - 1.035 Not Available [facility] Extended Services With [address], [place], [address], 11/05/2019 16:22:58 11/05/19 20 11/05/2019 urina lysis , dipst ick, auto Unknown Analyte 8.0 Not Available Counts include 234 beds at the [facility] Extended Services With [address] [place], [address], 11/05/2019 16:22:58 11/05/19 20 11/05/2019 urina lysis , dipst ick, auto Unknown Analyte 5.0 - 8.0 Not Available [facility] Extended Services With [address], [place], [address], 11/05/2019 16:22:58 11/05/19 20 11/05/2019 urina lysis , dipst ick, auto Unknown Analyte Negati ve Not Available [facility] Extended Services With [address], [place], [address], 11/05/2019 16:22:58 11/05/19 20 11/05/2019 urina lysis , dipst ick, auto Unknown Analyte Negati ve Not Available [facility] Extended Services With [address] [place], [address], 11/05/2019 16:22:58 11/05/19 20 11/05/2019 urina lysis , dipst ick, auto Unknown Analyte Negati ve Not Available [facility] Extended Services With [address] [place], [address], 11/05/2019 16:22:58 11/05/19 20 11/05/2019 urina lysis , dipst ick, auto Unknown Analyte Negati ve Not Available [facility] Extended Services With [address], [place], [address], 11/05/2019 16:22:58 11/05/19 20 11/05/2019 urina lysis , dipst ick, auto Unknown Analyte Negtiv e Not Available [facility] Services With [address] [place], [address], 11/05/2019 16:22:58 11/05/19 20 11/05/2019 urina lysis , dipst ick, auto Unknown Analyte Negati ve - Trace Not Available [facility] Extended Services With [address], [place], [address], 11/05/2019 16:22:58 11/05/19 20 11/05/2019 urina lysis , dipst ick, auto Unknown Analyte Normal Not Available Counts include 234 beds at the [facility] Extended Services With [address] [place], [address], 11/05/2019 16:22:58 11/05/19 20 11/05/2019 urina lysis , dipst ick, auto Unknown Analyte Normal Not Available Counts include 234 beds at the [facility] Extended Services With [address] [place], [address], 11/05/2019 16:22:58 11/05/19 20 11/05/2019 urina lysis , dipst ick, auto Unknown Analyte Negati ve Not Available [facility] Extended Services With [address] [place], [address], 11/05/2019 16:22:58 11/05/19 20 11/05/2019 urina lysis , dipst ick, auto Unknown Analyte Negati ve Not Available [facility] Extended Services With [address] [place], [address], 11/05/2019 16:22:58 11/05/19 20 11/05/2019 urina lysis , dipst ick, auto Unknown Analyte Normal Not Available Counts include 234 beds at the [facility] Extended Services With [address], [place], [address], 11/05/2019 16:22:58 11/05/19 20 11/05/2019 urina lysis , dipst ick, auto Unknown Analyte Normal - 1mg/dl Not Available [facility] Extended Services With [address], [place], [address], 11/05/2019 16:22:58 11/05/19 20 11/05/2019 urina lysis , dipst ick, auto Unknown Analyte Negati ve Not Available [facility] Extended Services With [address] [place], [address], 11/05/2019 16:22:58 11/05/19 20 11/05/2019 urina lysis , dipst ick, auto Unknown Analyte Negati ve Not Available [facility] Extended Services With [address], [place], [address], 11/05/2019 16:22:58 11/05/19 20 11/05/2019 urina lysis , dipst ick, auto Unknown Analyte Negati ve Not Available [facility] Extended [facility] With [address], [place], [address], 11/05/2019 16:22:58 11/05/19 20 11/05/2019 urina lysis , dipst ick, auto Unknown Analyte Negati ve Not Available [facility] With [address], [place], [address], 11/05/2019 16:22:58 11/05/19 20 11/05/2019 urina lysis , dipst ick, auto Unknown Analyte Clean Catch Not Available [facility] Extended Services With [address], [place], [address], 11/05/2019 16:22:58 11/05/19 20 11/05/2019 urina lysis , dipst ick, auto Unknown Analyte Automa hanna Not Available [facility] Extended Services With [address], [place], [address], 11/05/2019 16:22:58 Result Notes None recorded. Medical Equipment None Reported. Allergies Allergen ID Allergen Name Allergen Category Reaction Reaction Severity Criticality Documentation Date Start Date Code Code System Note Provider Name and Address Organization Details Recorded Time 785974 adhesive environme nt,medica tion Not available Not available Not available 11/05/2019 [id number] UNK Deseriee [facility] 0 16:18:27 Medications Name Sig Start Date [...] Updated DateTime 11/05/2019 177.8 cm 30.4 kg/m2 64142.58 g [facility] 11/05/2019 16:18:13 Date Recorded Body height Body mass index (BMI) Body weight Provider Name and Address Organization Details Last Updated DateTime 11/19/2019 177.8 cm 30.4 kg/m2 09323.58 g [facility] 11/19/2019 13:59:31 Date Recorded Body height Body mass index (BMI) Body weight Body temperature Provider Name and Address Organization Details Last Updated DateTime 03/24/2020 177.8 cm 30.4 kg/m2 14548.58 g 98 [degF] [facility] 03/24/2020 16:00:10 Social History Question Answer Notes LastModified by Organizat ion Details LastModified Time Tobacco Smoking Status Former Smoker [facility] 11/05/2019 16:19:39 What Is Your Level Of [...] available 2019 16:19:01 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 Condition Response Diabetes Y Anxiety Disorder Y Anemia Y High Cholesterol Y Emphysema Y Hypertension Y Depression Y Past Encounters Encounter ID Performer Location Encounter Start Date Encounter Closed Date Diagnosis/Indication Diagnosis SNOMED-CT Code Diagnosis ICD10 Code Diagnosis Note [id number] ADAM GARZON MD [facility] [address] [place] [address],[address] [place] [address] 11/05/2019 14:19:05 11/05/2019 15:41:41 Testicular hypofunction 299449988 E29.1 [id number] ADAM GARZON MD [facility] [address] [address] 11/19/2019 13:22:20 11/19/2019 13:59:07 Testicular hypofunction 173189258 E29.1 [id number] ADAM GARZON MD [facility] [address],[place] [address] 03/24/2020 14:15:00 03/24/2020 15:27:39 Benign prostatic hyperplasia with outflow obstruction 459201460 N40.1 Testicular hypofunction 065306244 E29.1 Secondary polycythemia 85073844 D75.1 Liver func tion tests outside reference range 467662705 R94.5 Benign pro static hyperplasia 196203110 N40.1 Health Concerns Section Related Observation LastModified by Organization Detai ls LastModified Time None Recorded Concern Status LastModified by Organization Details LastModified Time None Recorded Advance Directives Directive None Recorded Payers Encounter Date Sequence Insurance Name Policy Number Policy Rodriguez Covered Member ID Rodriguez Member ID Guarantor Name 11/05/2019 1 [employer]PPO[employer] [place] [employer] [id number] [employer] [employer] 11/19/2019 1 [employer] [place] [employer] [id number] [employer] [employer] 03/24/2020 1 [employer] (PP[employer] Gr [id number] [employer] Jovita Gr Notes Date Note Type [...] but does report dysuria. ADAM GARZON MD [address] [place] [address], [address], [facility] 11/08/2019 15:59:13 11/19/2019 text/html 49-year-old male [...] nocturia 2-3 times nightly. ADAM GARZON MD [facility] [place], [address], [facility] 11/21/2019 17:04:02 03/24/2020 text/html 49-year-old male in the office for follow-up evaluation of testicular hypofunction. He uses testosterone 1.62% transdermal gel, 2 pumps daily. He continues to have low energy level and low libido. He has troubles obtaining and maintaining an erection. Testosterone from 03/09/20 was 187 and PSA normal at 0.44. ADAM GARZON MD [facility] [place], [address], [facility] 03/27/2020 14:04:15
[2025-02-01 15:26] LABS: Microscopic, Urine URINE MICROSCOPIC (MICROSCOPIC)
[2025-02-01 16:02] LABS: Appearance,Urine CLEAR (Clear); Bilirubin,Urine Negative (Negative); Blood, Urine Negative (Negative); Color,Urine YELLOW (Yellow); Glucose,Urine (UA) Negative (Negative); Ketones,Urine Negative (Negative); Leukocyte Esterase,Urine Negative (Negative); Nitrate,Urine Negative (Negative); Protein,Urine Negative (Negative); Specific Gravity, Urine <= 1.005 (1.005-1.030); Urobilinogen,Urine 0.2 EU/dl (0.2)
[2025-02-02 08:25] LABS: Testosterone,Total 226 ng/dL (264-916)
== END 2025-02-01 23:59 | disposition home or self-care (01) ==
LOC: LAB 14:37
PROVIDERS: PCP Family Medicine; Visit Provider Urology
DX: N40.0 Benign prostatic hyperplasia without lower urinary tract symptoms (principal); N48.9 Disorder of penis, unspecified; N52.9 Male erectile dysfunction, unspecified
CPT/HCPCS: 36415; 81001; 84270; 84403; 87086; 87624

== ENCOUNTER 2025-02-04 12:44 | Outpatient (CLI) | payer MEDICARE, SELFPAY ==
--- NOTE | 2025-02-04 13:00 | US_ITS ---
FINAL REPORT CLINICAL HISTORY: UTI COMPARISON: None FINDINGS: ULTRASOUND BLADDER WITH POST VOID RESIDUAL Bladder volumes were estimated based on 3 dimensional measurements, pre- and postvoid. Prevoid bladder volume: 147.5 mls Postvoid bladder volume: 22.7 mls IMPRESSION: Estimated bladder volumes as above with small postvoid residual. Reviewed, Interpreted and Dictated by Ronaldo Real MD Transcribed by Amanda Bai Authenticated and [facility]
== END 2025-02-04 23:59 | disposition home or self-care (01) ==
LOC: RAD 12:45
PROVIDERS: PCP Family Medicine; Visit Provider Urology
DX: N40.0 Benign prostatic hyperplasia without lower urinary tract symptoms (principal)
CPT/HCPCS: 76857

== ENCOUNTER 2025-02-08 14:21 | Outpatient (CLI) | payer MEDICARE, SELFPAY ==
[2025-02-08 15:10] LABS: Basophils % 0.4 % (0.1-2.0); Eosinophils # 0.1 Kmm3 (0.0-0.4); Eosinophils % 0.8 % (0.1-12.0); Hematocrit 40.7 % (42.0-52.0); Hemoglobin 14.7 g/dL (14.1-18.0); Lymphocytes # 1.6 K/mm3 (0.7-4.5); Lymphocytes % 21.1 % (10-50); Mean Corpuscular HGB Conc 36.1 g/dL (31.8-35.4); Mean Corpuscular Hemoglobin 32.7 pg (27.0-31.2); Mean Corpuscular Volume 90.6 fl (80-94); Mean Platelet Volume 9.6 fl (7.4-10.4); Monocytes # 0.6 K/mm3 (0.1-1.0); Monocytes % 7.9 % (1.7-9.3); Neutrophils # 5.3 K/mm3 (1.8-7.8); Neutrophils % 69.4 % (37.0-80.0); Nucleated Red Blood Cells # 0 10^3/uL; Nucleated Red Blood Cells % 0 %; Platelet Count 298 K/mm3 (142-424); Red Blood Count 4.49 M/mm3 (4.60-6.20); Red Cell Distribution Width 13.4 % (11.5-17.5); Red Cell Distribution Width-SD 45.1 fL; White Blood Count 7.7 K/mm3 (4.8-10.8)
[2025-02-09 08:13] LABS: FSH 39.4 mIU/mL (1.5-12.4); LH 35.6 mIU/mL (1.7-8.6); Prolactin 3.2 ng/mL (3.6-25.2); Testosterone,Total 263 ng/dL (264-916)
[2025-02-09 13:12] LABS: Sex Hormone Binding Globulin 61.2 nmol/L (19.3-76.4)
[2025-02-15 17:13] LABS: Dihydrotestosterone DHT 15 ng/dL (.)
== END 2025-02-08 23:59 | disposition home or self-care (01) ==
LOC: LAB 14:21
PROVIDERS: PCP Family Medicine; Visit Provider Urology
DX: N40.0 Benign prostatic hyperplasia without lower urinary tract symptoms (principal); R53.83 Other fatigue; E29.1 Testicular hypofunction
CPT/HCPCS: 36415; 82626; 83001; 83002; 84146; 84270; 84403; 85025

== ENCOUNTER 2025-02-10 07:13 | Outpatient (CLI) | payer MEDICARE, SELFPAY ==
--- OUTSIDE RECORDS SUMMARY | 2025-02-10 07:15 | XMS_ITS | Data Portability ---
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 We discussed options of testosterone replacement therapy. We discussed risks of testosterone replacement therapy including cardiovascular disease, stroke risk, hepatic dysfunction, polycythemia, prostate growth benign and cancerous, etc. Confirmatory testosterone level. [email or web address] Not available 11/05/2019 16:18:55 11/19/2019 11/19/2019 We reviewed the risks of testosterone replacement therapy including cardiovascular disease, stroke risk, hepatic dysfunction, polycythemia, prostate growth - benign and cancerous, decreased sperm count, etc. After reviewing the risks he would like to proceed with replacement therapy. [email or web address] Not available 11/19/2019 14:19:55 03/24/2020 03/24/2020 We reviewed the risks of testosterone replacement therapy including cardiovascular disease, stroke risk, hepatic dysfunction, polycythemia, prostate growth - benign and cancerous, decreased sperm count, etc. Testosterone dose increased to 4 pumps daily. Follow-up with laboratory studies. [email or web address] Not available 03/27/2020 14:03:33 Plan of Treatment [...] urinalysis, dipstick, auto 2019 020 [email or web address] [facility] Extended Services With [address], [place], [address], 0 14:03:10 CBC 2019 020 [email or web address] Not available 0 14:47:52 urinalysis, dipstick, auto 2019 020 [email or web address] [facility] Extended Services With [address], [place], [address], 0 15:58:32 Referral None recorded. Procedures None recorded. Surgeries None recorded. Imaging None recorded. Medication Orders testosteron e 20.25 mg/1.25 gram per pump act.(1.62 %) transdermal gel 2019 020 [email or web address] Not available 0 15:25:51 Patient TargetsNo targets recorded. Patient Instructions Encounter Date Encounter Id Patient Instructions Last Modified By Organization Details Last Modified Time 03/24/2020 [id number] learning about healthy weight [email or web address] Not available 03/27/2020 14:03:10 Reason for Referral None Reported. Results Created Date Observation Date Name Description Value Unit Range Abnormal Flag Note LastModifiedBy Organization Detail LastModifiedTime 03/24/20 20 03/24/2020 urina lysis , dipst ick, auto Unknown Analyte Yellow Not Available [facility] Extended Services With [address], [place], [address], 03/24/2020 16:00:52 03/24/20 20 03/24/2020 urina lysis , dipst ick, auto Unknown Analyte Clear Not Available [facility] Extended Services With [address], [place], [address], 03/24/2020 16:00:52 03/24/20 20 03/24/2020 urina lysis , dipst ick, auto Unknown Analyte 1.000 Not Available [facility] Extended Services With [address], [place], [address], 03/24/2020 16:00:52 03/24/20 20 03/24/2020 urina lysis , dipst ick, auto Unknown Analyte 1.003 - 1.035 Not Available [facility] Services With [address], [place], [address], 03/24/2020 16:00:52 03/24/20 20 03/24/2020 urina lysis , dipst ick, auto Unknown Analyte 6.5 Not Available [facility] Extended Services With [address], [place], [address], 03/24/2020 16:00:52 03/24/20 20 03/24/2020 urina lysis , dipst ick, auto Unknown Analyte 5.0 - 8.0 Not Available [facility] With [address], [place], [address], 03/24/2020 16:00:52 03/24/20 20 03/24/2020 urina lysis , dipst ick, auto Unknown Analyte Negati ve Not Available [facility] With [address] [place], [address], 03/24/2020 16:00:52 03/24/20 20 03/24/2020 urina lysis , dipst ick, auto Unknown Analyte Negati ve Not Available [facility] With [address], [place], [address], 03/24/2020 16:00:52 03/24/20 20 03/24/2020 urina lysis , dipst ick, auto Unknown Analyte Negati ve Not Available [facility] With [address], [place], [address], 03/24/2020 16:00:52 03/24/20 20 03/24/2020 urina lysis , dipst ick, auto Unknown Analyte Negati ve Not Available [facility] With [address], [place], [address], 03/24/2020 16:00:52 03/24/20 20 03/24/2020 urina lysis , dipst ick, auto Unknown Analyte Negtiv e Not Available [facility] With [address] [place], [address], 03/24/2020 16:00:52 03/24/20 20 03/24/2020 urina lysis , dipst ick, auto Unknown Analyte Negati ve - Trace Not Available [facility] With [address], [place], [address], 03/24/2020 16:00:52 03/24/20 20 03/24/2020 urina lysis , dipst ick, auto Unknown Analyte Normal Not Available [facility] Extended Services With [address], [place], [address], 03/24/2020 16:00:52 03/24/20 20 03/24/2020 urina lysis , dipst ick, auto Unknown Analyte Normal Not Available [facility] Extended Services With [address], [place], [address], 03/24/2020 16:00:52 03/24/20 20 03/24/2020 urina lysis , dipst ick, auto Unknown Analyte Negati ve Not Available [facility] With [address], [place], [address], 03/24/2020 16:00:52 03/24/20 20 03/24/2020 urina lysis , dipst ick, auto Unknown Analyte Negati ve Not Available [facility] With [address], [place], [address], 03/24/2020 16:00:52 03/24/20 20 03/24/2020 urina lysis , dipst ick, auto Unknown Analyte Normal Not Available [facility] Extended Services With [address] [place], [address], 03/24/2020 16:00:52 03/24/20 20 03/24/2020 urina lysis , dipst ick, auto Unknown Analyte Normal - 1mg/dl Not Available [facility] With [address], [place], [address], 03/24/2020 16:00:52 03/24/20 20 03/24/2020 urina lysis , dipst ick, auto Unknown Analyte Negati ve Not Available [facility] With [address] [place], [address], 03/24/2020 16:00:52 03/24/20 20 03/24/2020 urina lysis , dipst ick, auto Unknown Analyte Negati ve Not Available [facility] With [address] [place], [address], 03/24/2020 16:00:52 03/24/20 20 03/24/2020 urina lysis , dipst ick, auto Unknown Analyte Negati ve Not Available [facility] With [address] [place], [address], 03/24/2020 16:00:52 03/24/20 20 03/24/2020 urina lysis , dipst ick, auto Unknown Analyte Negati ve Not Available [facility] With [address], [place], [address], 03/24/2020 16:00:52 03/24/20 20 03/24/2020 urina lysis , dipst ick, auto Unknown Analyte Clean Catch Not Available [facility] With [address] [place], [address], 03/24/2020 16:00:52 03/24/20 20 03/24/2020 urina lysis , dipst ick, auto Unknown Analyte Automa hanna Not Available [facility] With [address] [place], [address], 03/24/2020 16:00:52 11/05/19 20 11/05/2019 urina lysis , dipst ick, auto Unknown Analyte Yellow Not Available [facility] Extended [facility] With [address], [place], [address], 11/05/2019 16:22:58 11/05/19 20 11/05/2019 urina lysis , dipst ick, auto Unknown Analyte Clear Not Available [facility] Extended Services With [address], [place], [address], 11/05/2019 16:22:58 11/05/19 20 11/05/2019 urina lysis , dipst ick, auto Unknown Analyte 1.010 Not Available [facility] Extended Services With [address] [place], [address], 11/05/2019 16:22:58 11/05/19 20 11/05/2019 urina lysis , dipst ick, auto Unknown Analyte 1.003 - 1.035 Not Available [facility] With [address], [place], [address], 11/05/2019 16:22:58 11/05/19 20 11/05/2019 urina lysis , dipst ick, auto Unknown Analyte 8.0 Not Available [facility] Extended Services With [address] [place], [address], 11/05/2019 16:22:58 11/05/19 20 11/05/2019 urina lysis , dipst ick, auto Unknown Analyte 5.0 - 8.0 Not Available [facility] With [address], [place], [address], 11/05/2019 16:22:58 11/05/19 20 11/05/2019 urina lysis , dipst ick, auto Unknown Analyte Negati ve Not Available [facility] With [address], [place], [address], 11/05/2019 16:22:58 11/05/19 20 11/05/2019 urina lysis , dipst ick, auto Unknown Analyte Negati ve Not Available [facility] With [address] [place], [address], 11/05/2019 16:22:58 11/05/19 20 11/05/2019 urina lysis , dipst ick, auto Unknown Analyte Negati ve Not Available [facility] With [address] [place], [address], 11/05/2019 16:22:58 11/05/19 20 11/05/2019 urina lysis , dipst ick, auto Unknown Analyte Negati ve Not Available [facility] With [address], [place], [address], 11/05/2019 16:22:58 11/05/19 20 11/05/2019 urina lysis , dipst ick, auto Unknown Analyte Negtiv e Not Available [facility] [address] [place], [address], 11/05/2019 16:22:58 11/05/19 20 11/05/2019 urina lysis , dipst ick, auto Unknown Analyte Negati ve - Trace Not Available [facility] With [address], [place], [address], 11/05/2019 16:22:58 11/05/19 20 11/05/2019 urina lysis , dipst ick, auto Unknown Analyte Normal Not Available [facility] Services With [address] [place], [address], 11/05/2019 16:22:58 11/05/19 20 11/05/2019 urina lysis , dipst ick, auto Unknown Analyte Normal Not Available [facility] Extended Services With [address] [place], [address], 11/05/2019 16:22:58 11/05/19 20 11/05/2019 urina lysis , dipst ick, auto Unknown Analyte Negati ve Not Available [facility] With [address] [place], [address], 11/05/2019 16:22:58 11/05/19 20 11/05/2019 urina lysis , dipst ick, auto Unknown Analyte Negati ve Not Available [facility] With [address] [place], [address], 11/05/2019 16:22:58 11/05/19 20 11/05/2019 urina lysis , dipst ick, auto Unknown Analyte Normal Not Available [facility] Services With [address], [place], [address], 11/05/2019 16:22:58 11/05/19 20 11/05/2019 urina lysis , dipst ick, auto Unknown Analyte Normal - 1mg/dl Not Available [facility] With [address], [place], [address], 11/05/2019 16:22:58 11/05/19 20 11/05/2019 urina lysis , dipst ick, auto Unknown Analyte Negati ve Not Available [facility] With [address] [place], [address], 11/05/2019 16:22:58 11/05/19 20 11/05/2019 urina lysis , dipst ick, auto Unknown Analyte Negati ve Not Available [facility] With [address], [place], [address], 11/05/2019 16:22:58 11/05/19 20 11/05/2019 urina lysis , dipst ick, auto Unknown Analyte Negati ve Not Available [facility] With [address], [place], [address], 11/05/2019 16:22:58 11/05/19 20 11/05/2019 urina lysis , dipst ick, auto Unknown Analyte Negati ve Not Available [facility] With [address], [place], [address], 11/05/2019 16:22:58 11/05/19 20 11/05/2019 urina lysis , dipst ick, auto Unknown Analyte Clean Catch Not Available [facility] With [address], [place], [address], 11/05/2019 16:22:58 11/05/19 20 11/05/2019 urina lysis , dipst ick, auto Unknown Analyte Automa hanna Not Available [facility] With [address], [place], [address], 11/05/2019 16:22:58 Result Notes None recorded. Medical Equipment None Reported. Allergies Allergen ID Allergen Name Allergen Category Reaction Reaction Severity Criticality Documentation Date Start Date Code Code System Note Provider Name and Address Organization Details Recorded Time [id number] adhesive environme nt,medica tion Not available Not available Not available 11/05/2019 [id number] UNK Deseriee [facility] 0 16:18:27 Medications Name Sig Start [...] Updated DateTime 11/05/2019 177.8 cm 30.4 kg/m2 96544.58 g [facility] 11/05/2019 16:18:13 Date Recorded Body height Body mass index (BMI) Body weight Provider Name and Address Organization Details Last Updated DateTime 11/19/2019 177.8 cm 30.4 kg/m2 02784.58 g [facility] 11/19/2019 13:59:31 Date Recorded Body height Body mass index (BMI) Body weight Body temperature Provider Name and Address Organization Details Last Updated DateTime 03/24/2020 177.8 cm 30.4 kg/m2 57183.58 g 98 [degF] [facility] 03/24/2020 16:00:10 Social History Question Answer Notes LastModified by Organizat ion Details LastModified Time Tobacco Smoking Status Former Smoker [facility] 11/05/2019 16:19:39 What Is Your Level Of Alcohol Consumption? None Information not available 11/05/2019 Marital Status Informatio n not available 11/05/2019 Sex: Unknown Functional Status None recorded. Mental Status None recorded. Family History Relationship Description Onset Age of this Age Resolved Age Notes LastModified by Organization Details LastModified Time Unspecified Relation Malignant neoplasm of prostate [email or web address] Not available 2019 16:19:01 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 Condition Response Emphysema Y Depression Y Anemia Y Anxiety Disorder Y Diabetes Y High Cholesterol Y Hypertension Y Past Encounters Encounter ID Performer Location Encounter Start Date Encounter Closed Date Diagnosis/Indication Diagnosis SNOMED-CT Code Diagnosis ICD10 Code Diagnosis Note [id number] ADAM GARZON MD [facility] [place] [facility] [address] [place] [address],[place] [address] 11/05/2019 14:19:05 11/05/2019 15:41:41 Testicular hypofunction 106121656 E29.1 [id number] ADAM GARZON MD [facility] [place] [facility] [address] [address] 11/19/2019 13:22:20 11/19/2019 13:59:07 Testicular hypofunction 186615321 E29.1 [id number] ADAM GARZON MD [facility] [place] [facility] [address],[place] [address] 03/24/2020 14:15:00 03/24/2020 15:27:39 Benign prostatic hyperplasia with outflow obstruction 329690495 N40.1 Testicular hypofunction 450631643 E29.1 Secondary polycythemia 58337766 D75.1 Liver func tion tests outside reference range 117890231 R94.5 Benign pro static hyperplasia 954575753 N40.1 Health Concerns Section Related Observation LastModified by Organization Detai ls LastModified Time None Recorded Concern Status LastModified by Organization Details LastModified Time None Recorded Advance Directives Directive None Recorded Payers Encounter Date Sequence Insurance Name Policy Number Policy Rodriguez Covered Member ID Rodriguez Member ID Guarantor Name 11/05/2019 1 [employer] (PPO[employer] [place] [id number] [place] Gr 11/19/2019 1 [employer] [place] Gr [id number] [place] Gr 03/24/2020 1 [employer] (PPO[employer] [place] Gr [id number] Poncho Jovita Gr Notes Date Note Type [...] but does report dysuria. ADAM GARZON MD [address] [place] [address], [address], [facility] 11/08/2019 15:59:13 11/19/2019 text/html 49-year-old [...] nocturia 2-3 times nightly. ADAM GARZON MD [facility] [place], [address], [facility] 11/21/2019 17:04:02 03/24/2020 text/html 49-year-old male in the office for follow-up evaluation of testicular hypofunction. He uses testosterone 1.62% transdermal gel, 2 pumps daily. He continues to have low energy level and low libido. He has troubles obtaining and maintaining an erection. Testosterone from 03/09/20 was 187 and PSA normal at 0.44. ADAM GARZON MD [facility] [place], [address], [facility] 03/27/2020 14:04:15
--- NOTE | 2025-02-10 07:30 | CT_ITS ---
FINAL REPORT TECHNIQUE: Thin section axial CT images with coronal and sagittal reformats were performed. This study was performed with techniques to keep radiation doses as low as reasonably achievable (ALARA). Individualized dose reduction techniques using automated exposure control or adjustment of mA and/or kV according to the patient''s size were employed. CLINICAL HISTORY: eval right ankle distal fib fracture for non union FINDINGS: There is an oblique moderately displaced fracture of the distal fibula. Diastases of the fracture fragments measure 6 mm. There is a vertical nondisplaced partially healed fracture of the posterior malleolus is seen on sagittal images 27 and 28 of series 602. The ankle mortise is intact. There are moderate hypertrophic changes at the lateral margin of the mortise. Generalized flattening is noted of the talar dome with sclerosis of the talar dome. There is a minimal plantar spur. IMPRESSION: 6 mm displaced oblique fracture of the distal fibula without bridging callus formation concerning for nonunion. Healing fracture of the posterior malleolus. Abnormal flattening and sclerosis of the talar dome. Consider MRI to better characterize. Reviewed, Interpreted and Dictated by Ronaldo Real MD Transcribed by Isabela Carl Authenticated and [facility]
== END 2025-02-10 23:59 | disposition home or self-care (01) ==
LOC: RAD 07:14
PROVIDERS: PCP Family Medicine; Visit Provider Podiatrist
DX: S82.831A Other fracture of upper and lower end of right fibula, initial encounter for closed fracture (principal)
CPT/HCPCS: 73700

== ENCOUNTER 2025-03-01 13:32 | Outpatient (CLI) | payer MEDICARE, SELFPAY ==
--- OUTSIDE RECORDS SUMMARY | 2025-03-01 13:35 | XMS_ITS | Data Portability ---
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 We discussed options of testosterone replacement therapy. We discussed risks of testosterone replacement therapy including cardiovascular disease, stroke risk, hepatic dysfunction, polycythemia, prostate growth benign and cancerous, etc. Confirmatory testosterone level. [email or web address] Not available 11/05/2019 16:18:55 11/19/2019 11/19/2019 We reviewed the risks of testosterone replacement therapy including cardiovascular disease, stroke risk, hepatic dysfunction, polycythemia, prostate growth - benign and cancerous, decreased sperm count, etc. After reviewing the risks he would like to proceed with replacement therapy. Not available 11/19/2019 14:19:55 03/24/2020 03/24/2020 We reviewed the risks of testosterone replacement therapy including cardiovascular disease, stroke risk, hepatic dysfunction, polycythemia, prostate growth - benign and cancerous, decreased sperm count, etc. Testosterone dose increased to 4 pumps daily. Follow-up with laboratory studies. [email or web address] Not available 03/27/2020 14:03:33 Plan of Treatment [...] urinalysis, dipstick, auto 2019 020 [email or web address] 14 [facility] Extended Services With [address], [place], [address], 0 14:03:10 CBC 2019 020 [email or web address] Not available 0 14:47:52 urinalysis, dipstick, auto 2019 020 [email or web address] 14 [facility] Extended Services With [address], [place], [address], 0 15:58:32 Referral None recorded. Procedures None recorded. Surgeries None recorded. Imaging None recorded. Medication Orders testosteron e 20.25 mg/1.25 gram per pump act.(1.62 %) transdermal gel 2019 020 [email or web address] Not available 0 15:25:51 Patient TargetsNo targets recorded. Patient Instructions Encounter Date Encounter Id Patient Instructions Last Modified By Organization Details Last Modified Time 03/24/2020 [id number] learning about healthy weight [email or web address] Not available 03/27/2020 14:03:10 Reason for Referral None Reported. Results Created Date Observation Date Name Description Value Unit Range Abnormal Flag Note LastModifiedBy Organization Detail LastModifiedTime 03/24/20 20 03/24/2020 urina lysis , dipst ick, auto Unknown Analyte Yellow Not Available [facility] Extended Services With [address], [place], [address], 03/24/2020 16:00:52 03/24/20 20 03/24/2020 urina lysis , dipst ick, auto Unknown Analyte Clear Not Available [facility] Extended Services With [address], [place], [address], 03/24/2020 16:00:52 03/24/20 20 03/24/2020 urina lysis , dipst ick, auto Unknown Analyte 1.000 Not Available [facility] Extended Services With [address], [place], [address], 03/24/2020 16:00:52 03/24/20 20 03/24/2020 urina lysis , dipst ick, auto Unknown Analyte 1.003 - 1.035 Not Available [facility] Extended Services With [address], [place], [address], 03/24/2020 16:00:52 03/24/20 20 03/24/2020 urina lysis , dipst ick, auto Unknown Analyte 6.5 Not Available [facility] Extended Services With [address], [place], [address], 03/24/2020 16:00:52 03/24/20 20 03/24/2020 urina lysis , dipst ick, auto Unknown Analyte 5.0 - 8.0 Not Available [facility] Extended Services With [address], [place], [address], 03/24/2020 16:00:52 03/24/20 20 03/24/2020 urina lysis , dipst ick, auto Unknown Analyte Negati ve Not Available [facility] Extended Services With [address] [place], [address], 03/24/2020 16:00:52 03/24/20 20 03/24/2020 urina lysis , dipst ick, auto Unknown Analyte Negati ve Not Available [facility] Extended Services With [address], [place], [address], 03/24/2020 16:00:52 03/24/20 20 03/24/2020 urina lysis , dipst ick, auto Unknown Analyte Negati ve Not Available [facility] Extended Services With [address], [place], [address], 03/24/2020 16:00:52 03/24/20 20 03/24/2020 urina lysis , dipst ick, auto Unknown Analyte Negati ve Not Available [facility] Extended Services With [address], [place], [address], 03/24/2020 16:00:52 03/24/20 20 03/24/2020 urina lysis , dipst ick, auto Unknown Analyte Negtiv e Not Available [facility] Extended Services With [address] [place], [address], 03/24/2020 16:00:52 03/24/20 20 03/24/2020 urina lysis , dipst ick, auto Unknown Analyte Negati ve - Trace Not Available [facility] Extended Services With [address], [place], [address], 03/24/2020 16:00:52 03/24/20 20 03/24/2020 urina lysis , dipst ick, auto Unknown Analyte Normal Not Available [facility] Extended Services With [address], [place], [address], 03/24/2020 16:00:52 03/24/20 20 03/24/2020 urina lysis , dipst ick, auto Unknown Analyte Normal Not Available [facility] Extended Services With [address], [place], [address], 03/24/2020 16:00:52 03/24/20 20 03/24/2020 urina lysis , dipst ick, auto Unknown Analyte Negati ve Not Available [facility] Extended Services With [address], [place], [address], 03/24/2020 16:00:52 03/24/20 20 03/24/2020 urina lysis , dipst ick, auto Unknown Analyte Negati ve Not Available [facility] Extended Services With [address], [place], [address], 03/24/2020 16:00:52 03/24/20 20 03/24/2020 urina lysis , dipst ick, auto Unknown Analyte Normal Not Available [facility] Extended Services With [address] [place], [address], 03/24/2020 16:00:52 03/24/20 20 03/24/2020 urina lysis , dipst ick, auto Unknown Analyte Normal - 1mg/dl Not Available [facility] Extended Services With [address], [place], [address], 03/24/2020 16:00:52 03/24/20 20 03/24/2020 urina lysis , dipst ick, auto Unknown Analyte Negati ve Not Available [facility] Extended Services With [address] [place], [address], 03/24/2020 16:00:52 03/24/20 20 03/24/2020 urina lysis , dipst ick, auto Unknown Analyte Negati ve Not Available [facility] Extended Services With [address] [place], [address], 03/24/2020 16:00:52 03/24/20 20 03/24/2020 urina lysis , dipst ick, auto Unknown Analyte Negati ve Not Available [facility] Extended Services With [address] [place], [address], 03/24/2020 16:00:52 03/24/20 20 03/24/2020 urina lysis , dipst ick, auto Unknown Analyte Negati ve Not Available [facility] Extended Services With [address], [place], [address], 03/24/2020 16:00:52 03/24/20 20 03/24/2020 urina lysis , dipst ick, auto Unknown Analyte Clean Catch Not Available [facility] Extended Services With [address] [place], [address], 03/24/2020 16:00:52 03/24/20 20 03/24/2020 urina lysis , dipst ick, auto Unknown Analyte Automa hanna Not Available [facility] Extended Services With [address] [place], [address], 03/24/2020 16:00:52 11/05/19 20 11/05/2019 urina lysis , dipst ick, auto Unknown Analyte Yellow Not Available [facility] Extended Services With [address], [place], [address], 11/05/2019 16:22:58 11/05/19 20 11/05/2019 urina lysis , dipst ick, auto Unknown Analyte Clear Not Available [facility] Extended Services With [address], [place], [address], 11/05/2019 16:22:58 11/05/19 20 11/05/2019 urina lysis , dipst ick, auto Unknown Analyte 1.010 Not Available [facility] Extended Services With [address] [place], [address], 11/05/2019 16:22:58 11/05/19 20 11/05/2019 urina lysis , dipst ick, auto Unknown Analyte 1.003 - 1.035 Not Available [facility] Extended Services With [address], [place], [address], 11/05/2019 16:22:58 11/05/19 20 11/05/2019 urina lysis , dipst ick, auto Unknown Analyte 8.0 Not Available [facility] Extended Services With [address] [place], [address], 11/05/2019 16:22:58 11/05/19 20 11/05/2019 urina lysis , dipst ick, auto Unknown Analyte 5.0 - 8.0 Not Available [facility] Extended Services With [address], [place], [address], 11/05/2019 16:22:58 11/05/19 20 11/05/2019 urina lysis , dipst ick, auto Unknown Analyte Negati ve Not Available [facility] Extended Services With [address], [place], [address], 11/05/2019 16:22:58 11/05/19 20 11/05/2019 urina lysis , dipst ick, auto Unknown Analyte Negati ve Not Available [facility] Extended Services With [address] [place], [address], 11/05/2019 16:22:58 11/05/19 20 11/05/2019 urina lysis , dipst ick, auto Unknown Analyte Negati ve Not Available [facility] Extended Services With [address] [place], [address], 11/05/2019 16:22:58 11/05/19 20 11/05/2019 urina lysis , dipst ick, auto Unknown Analyte Negati ve Not Available [facility] Extended Services With [address], [place], [address], 11/05/2019 16:22:58 11/05/19 20 11/05/2019 urina lysis , dipst ick, auto Unknown Analyte Negtiv e Not Available [facility] [address] [place], [address], 11/05/2019 16:22:58 11/05/19 20 11/05/2019 urina lysis , dipst ick, auto Unknown Analyte Negati ve - Trace Not Available [facility] Extended Services With [address], [place], [address], 11/05/2019 16:22:58 11/05/19 20 11/05/2019 urina lysis , dipst ick, auto Unknown Analyte Normal Not Available [facility] Extended Services With [address] [place], [address], 11/05/2019 16:22:58 11/05/19 20 11/05/2019 urina lysis , dipst ick, auto Unknown Analyte Normal Not Available [facility] Extended Services With [address] [place], [address], 11/05/2019 16:22:58 11/05/19 20 11/05/2019 urina lysis , dipst ick, auto Unknown Analyte Negati ve Not Available [facility] Extended Services With [address] [place], [address], 11/05/2019 16:22:58 11/05/19 20 11/05/2019 urina lysis , dipst ick, auto Unknown Analyte Negati ve Not Available [facility] With [address] [place], [address], 11/05/2019 16:22:58 11/05/19 20 11/05/2019 urina lysis , dipst ick, auto Unknown Analyte Normal Not Available [facility] Extended Services With [address], [place], [address], 11/05/2019 16:22:58 11/05/19 20 11/05/2019 urina lysis , dipst ick, auto Unknown Analyte Normal - 1mg/dl Not Available [facility] Extended Services With [address], [place], [address], 11/05/2019 16:22:58 11/05/19 20 11/05/2019 urina lysis , dipst ick, auto Unknown Analyte Negati ve Not Available [facility] Extended Services With [address] [place], [address], 11/05/2019 16:22:58 11/05/19 20 11/05/2019 urina lysis , dipst ick, auto Unknown Analyte Negati ve Not Available [facility] Extended Services With [address], [place], [address], 11/05/2019 16:22:58 11/05/19 20 11/05/2019 urina lysis , dipst ick, auto Unknown Analyte Negati ve Not Available [facility] Extended Services With [address], [place], [address], 11/05/2019 16:22:58 11/05/19 20 11/05/2019 urina lysis , dipst ick, auto Unknown Analyte Negati ve Not Available [facility] Extended Services With [address], [place], [address], 11/05/2019 16:22:58 11/05/19 20 11/05/2019 urina lysis , dipst ick, auto Unknown Analyte Clean Catch Not Available [facility] [place] Extended Services With [address], [place], [address], 11/05/2019 16:22:58 11/05/19 20 11/05/2019 urina lysis , dipst ick, auto Unknown Analyte Automa hanna Not Available [facility] Extended Services With [address], [place], [address], 11/05/2019 16:22:58 Result Notes None recorded. Medical Equipment None Reported. Allergies Allergen ID Allergen Name Allergen Category Reaction Reaction Severity Criticality Documentation Date Start Date Code Code System Note Provider Name and Address Organization Details Recorded Time 447303 adhesive environme nt,medica tion Not available Not available Not available 11/05/2019 [id number] UNK Deseriee [facility] 0 16:18:27 Medications Name Sig Start Date [...] Updated DateTime 11/05/2019 177.8 cm 30.4 kg/m2 05252.58 g [facility] 11/05/2019 16:18:13 Date Recorded Body height Body mass index (BMI) Body weight Provider Name and Address Organization Details Last Updated DateTime 11/19/2019 177.8 cm 30.4 kg/m2 10538.58 g [facility] 11/19/2019 13:59:31 Date Recorded Body height Body mass index (BMI) Body weight Body temperature Provider Name and Address Organization Details Last Updated DateTime 03/24/2020 177.8 cm 30.4 kg/m2 47238.58 g 98 [degF] [facility] 03/24/2020 16:00:10 Social History Question Answer Notes LastModified by Organizat ion Details LastModified Time Tobacco Smoking Status Former Smoker [facility] 11/05/2019 16:19:39 Marital Status Informatio n not available 11/05/2019 Sex: Unknown Functional Status Question Answer Note LastModified by Organization D etails LastModified Time What is your level of alcohol consumption? None Information not available 11/05/2019 Mental Status None recorded. Family History Relationship Description Onset Age of this Age Resolved Age Notes LastModified by Organization Details LastModified Time Unspecified Relation Malignant neoplasm of prostate kasey Not available 2019 16:19:01 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 Condition Response Anxiety Disorder Y Diabetes Y Anemia Y High Cholesterol Y Emphysema Y Hypertension Y Depression Y Past Encounters Encounter ID Performer Location Encounter Start Date Encounter Closed Date Diagnosis/Indication Diagnosis SNOMED-CT Code Diagnosis ICD10 Code Diagnosis Note [id number] ADAM GARZON MD [facility] [address] [place] [address] ,[place] [address] 11/05/2019 14:19:05 11/05/2019 15:41:41 Testicular hypofunction 251689276 E29.1 [id number] ADAM GARZON MD [facility] [address] ,[place] [address] 11/19/2019 13:22:20 11/19/2019 13:59:07 Testicular hypofunction 032952584 E29.1 [id number] ADAM GARZON MD [facility] [address] ,[place] [address] 03/24/2020 14:15:00 03/24/2020 15:27:39 Benign prostatic hyperplasia with outflow obstruction 859814516 N40.1 Testicular hypofunction 780431728 E29.1 Secondary polycythemia 62325700 D75.1 Liver func tion tests outside reference range 198865998 R94.5 Benign pro static hyperplasia 351262312 N40.1 Health Concerns Section Related Observation LastModified by Organization Detai ls LastModified Time None Recorded Concern Status LastModified by Organization Details LastModified Time None Recorded Advance Directives Directive None Recorded Payers Insurance Date Sequence Insurance Name Policy Number Policy Rodriguez Covered Member ID Rodriguez Member ID Guarantor Name 05/23/2020 [employer] (MEDICARE REPLACEMENT/AD VANTAGE - PPO) [employer] Gr [id number] [employer] Gr 05/23/2020 1 [employer] ONE - CHOICECARE (PPO) [employer] Gr [id number] [employer] Notes Date Note Type Note Provider [...] but does report dysuria. ADAM GARZON MD [address] [place] [address], [address], [facility] 11/08/2019 15:59:13 11/19/2019 text/html 49-year-old male [...] nocturia 2-3 times nightly. ADAM GARZON MD [facility] [place], [address], [facility] 11/21/2019 17:04:02 03/24/2020 text/html 49-year-old male in the office for follow-up evaluation of testicular hypofunction. He uses testosterone 1.62% transdermal gel, 2 pumps daily. He continues to have low energy level and low libido. He has troubles obtaining and maintaining an erection. Testosterone from 03/09/20 was 187 and PSA normal at 0.44. ADAM GARZON MD [address] [place], [address], [facility] 03/27/2020 14:04:15
[2025-03-01 13:59] LABS: Basophils % 0.3 % (0.1-2.0); Eosinophils % 0.6 % (0.1-12.0); Hematocrit 40.6 % (42.0-52.0); Hemoglobin 13.7 g/dL (14.1-18.0); Immature Granulocytes # 0.04 10^3uL; Immature Granulocytes % 0.6 %; Lymphocytes # 1.5 K/mm3 (0.7-4.5); Lymphocytes % 23.7 % (10-50); Mean Corpuscular HGB Conc 33.7 g/dL (31.8-35.4); Mean Corpuscular Volume 91.9 fl (80-94); Mean Platelet Volume 8.9 fl (7.4-10.4); Monocytes # 0.6 K/mm3 (0.1-1.0); Neutrophils # 4.2 K/mm3 (1.8-7.8); Neutrophils % 65.8 % (37.0-80.0); Nucleated Red Blood Cells # 0 10^3/uL; Nucleated Red Blood Cells % 0 %; Platelet Count 290 K/mm3 (142-424); Red Blood Count 4.42 M/mm3 (4.60-6.20); Red Cell Distribution Width 14.6 % (11.5-17.5); Red Cell Distribution Width-SD 49.7 fL; White Blood Count 6.3 K/mm3 (4.8-10.8)
[2025-03-02 05:08] LABS: Sex Hormone Binding Globulin 54.2 nmol/L (19.3-76.4)
[2025-03-02 09:10] LABS: Testosterone,Total >1500 ng/dL (264-916)
== END 2025-03-01 23:59 | disposition home or self-care (01) ==
LOC: LAB 13:33
PROVIDERS: PCP Family Medicine; Visit Provider Urology
DX: N40.0 Benign prostatic hyperplasia without lower urinary tract symptoms (principal); R53.83 Other fatigue
CPT/HCPCS: 36415; 84270; 84403; 85025

== ENCOUNTER 2025-03-19 17:14 | Emergency (ER) | payer MEDICARE, SELFPAY ==
--- OUTSIDE RECORDS SUMMARY | 2025-03-19 17:27 | XMS_ITS | Data Portability ---
Author Organization [facility] Address [address] [facility] [facility] [address] [place] [address] Care Team Providers Care Co Pilot Name Role Phone PIEDAD LEIGHANN Primary Care Provider Assessment Encounter Date Assessment Date Assessment LastModified by Organization Details LastModified Time 11/05/2019 11/05/2019 We discussed the diagnosis of testicular hypofunction. We discussed options of testosterone replacement therapy. We discussed risks of testosterone replacement therapy including cardiovascular disease, stroke risk, hepatic dysfunction, polycythemia, prostate growth benign and cancerous, etc. Confirmatory testosterone level. [email or web address] Not available 11/05/2019 16:18:55 11/19/2019 11/19/2019 We reviewed the risks of testosterone replacement therapy including cardiovascular disease, stroke risk, hepatic dysfunction, polycythemia, prostate growth - benign and cancerous, decreased sperm count, etc. After reviewing the risks he would like to proceed with replacement therapy. [email or web address] Not available 11/19/2019 14:19:55 03/24/2020 03/24/2020 We reviewed the risks of testosterone replacement therapy including cardiovascular disease, stroke risk, hepatic dysfunction, polycythemia, prostate growth - benign and cancerous, decreased sperm count, etc. Testosterone dose increased to 4 pumps daily. Follow-up with laboratory studies. [email or web address] Not available 03/27/2020 14:03:33 Plan of Treatment [...] urinalysis, dipstick, auto 2019 020 [email or web address] [facility] Extended Services With [address], [place], [address], 0 14:03:10 CBC 2019 020 [email or web address] Not available 0 14:47:52 urinalysis, dipstick, auto 2019 020 [email or web address] [facility] With [address], [place], [address], 0 15:58:32 Referral None recorded. Procedures None recorded. Surgeries None recorded. Imaging None recorded. Medication Orders testosteron e 20.25 mg/1.25 gram per pump act.(1.62 %) transdermal gel 2019 020 [email or web address] Not available 0 15:25:51 Patient TargetsNo targets recorded. Patient Instructions Encounter Date Encounter Id Patient Instructions Last Modified By Organization Details Last Modified Time 03/24/2020 [id number] learning about healthy weight [email or web address] Not available 03/27/2020 14:03:10 Reason for Referral None Reported. Results Created Date Observation Date Name Description Value Unit Range Abnormal Flag Note LastModifiedBy Organization Detail LastModifiedTime 03/24/20 20 03/24/2020 urina lysis , dipst ick, auto Unknown Analyte Yellow Not Available [facility] Extended Services With [address], [place], [address], 03/24/2020 16:00:52 03/24/20 20 03/24/2020 urina lysis , dipst ick, auto Unknown Analyte Clear Not Available [facility] Extended Services With [address], [place], [address], 03/24/2020 16:00:52 03/24/20 20 03/24/2020 urina lysis , dipst ick, auto Unknown Analyte 1.000 Not Available [facility] With [address], [place], [address], 03/24/2020 16:00:52 03/24/20 20 03/24/2020 urina lysis , dipst ick, auto Unknown Analyte 1.003 - 1.035 Not Available [facility] Extended Services With [address], [place], [address], 03/24/2020 16:00:52 03/24/20 20 03/24/2020 urina lysis , dipst ick, auto Unknown Analyte 6.5 Not Available [facility] With [address], [place], [address], 03/24/2020 16:00:52 03/24/20 20 03/24/2020 urina lysis , dipst ick, auto Unknown Analyte 5.0 - 8.0 Not Available [facility] Extended Services With [address], [place], [address], 03/24/2020 16:00:52 03/24/20 20 03/24/2020 urina lysis , dipst ick, auto Unknown Analyte Negati ve Not Available [facility] Extended Services With [address] [place], [address], 03/24/2020 16:00:52 03/24/20 20 03/24/2020 urina lysis , dipst ick, auto Unknown Analyte Negati ve Not Available [facility] Extended Services With [address], [place], [address], 03/24/2020 16:00:52 03/24/20 20 03/24/2020 urina lysis , dipst ick, auto Unknown Analyte Negati ve Not Available [facility] Extended Services With [address], [place], [address], 03/24/2020 16:00:52 03/24/20 20 03/24/2020 urina lysis , dipst ick, auto Unknown Analyte Negati ve Not Available [facility] Extended Services With [address], [place], [address], 03/24/2020 16:00:52 03/24/20 20 03/24/2020 urina lysis , dipst ick, auto Unknown Analyte Negtiv e Not Available [facility] Extended Services With [address], [address], 03/24/2020 16:00:52 03/24/20 20 03/24/2020 urina lysis , dipst ick, auto Unknown Analyte Negati ve - Trace Not Available [facility] Extended Services With [address], [place], [address], 03/24/2020 16:00:52 03/24/20 20 03/24/2020 urina lysis , dipst ick, auto Unknown Analyte Normal Not Available [facility] Extended Services With [address], [place], [address], 03/24/2020 16:00:52 03/24/20 20 03/24/2020 urina lysis , dipst ick, auto Unknown Analyte Normal Not Available [facility] Services With [address], [place], [address], 03/24/2020 16:00:52 03/24/20 20 03/24/2020 urina lysis , dipst ick, auto Unknown Analyte Negati ve Not Available [facility] Extended Services With [address], [place], [address], 03/24/2020 16:00:52 03/24/20 20 03/24/2020 urina lysis , dipst ick, auto Unknown Analyte Negati ve Not Available [facility] Extended Services With [address], [place], [address], 03/24/2020 16:00:52 03/24/20 20 03/24/2020 urina lysis , dipst ick, auto Unknown Analyte Normal Not Available [facility] Services With [address] [place], [address], 03/24/2020 16:00:52 03/24/20 20 03/24/2020 urina lysis , dipst ick, auto Unknown Analyte Normal - 1mg/dl Not Available [facility] Extended Services With [address], [place], [address], 03/24/2020 16:00:52 03/24/20 20 03/24/2020 urina lysis , dipst ick, auto Unknown Analyte Negati ve Not Available [facility] Extended Services With [address] [place], [address], 03/24/2020 16:00:52 03/24/20 20 03/24/2020 urina lysis , dipst ick, auto Unknown Analyte Negati ve Not Available [facility] Extended Services With [address] [place], [address], 03/24/2020 16:00:52 03/24/20 20 03/24/2020 urina lysis , dipst ick, auto Unknown Analyte Negati ve Not Available [facility] Extended Services With [address] [place], [address], 03/24/2020 16:00:52 03/24/20 20 03/24/2020 urina lysis , dipst ick, auto Unknown Analyte Negati ve Not Available [facility] Extended Services With [address], [place], [address], 03/24/2020 16:00:52 03/24/20 20 03/24/2020 urina lysis , dipst ick, auto Unknown Analyte Clean Catch Not Available [facility] Extended Services With [address], [address], 03/24/2020 16:00:52 03/24/20 20 03/24/2020 urina lysis , dipst ick, auto Unknown Analyte Automa hanna Not Available [facility] Extended Services With [address], [address], 03/24/2020 16:00:52 11/05/19 20 11/05/2019 urina lysis , dipst ick, auto Unknown Analyte Yellow Not Available [facility] With [address], [place], [address], 11/05/2019 16:22:58 11/05/19 20 11/05/2019 urina lysis , dipst ick, auto Unknown Analyte Clear Not Available [facility] With [address], [place], [address], 11/05/2019 16:22:58 11/05/19 20 11/05/2019 urina lysis , dipst ick, auto Unknown Analyte 1.010 Not Available [facility] With [address], [address], 11/05/2019 16:22:58 11/05/19 20 11/05/2019 urina lysis , dipst ick, auto Unknown Analyte 1.003 - 1.035 Not Available [facility] Extended Services With [address], [place], [address], 11/05/2019 16:22:58 11/05/19 20 11/05/2019 urina lysis , dipst ick, auto Unknown Analyte 8.0 Not Available [facility] With [address] [place], [address], 11/05/2019 16:22:58 11/05/19 20 11/05/2019 urina lysis , dipst ick, auto Unknown Analyte 5.0 - 8.0 Not Available [facility] Extended Services With [address], [place], [address], 11/05/2019 16:22:58 11/05/19 20 11/05/2019 urina lysis , dipst ick, auto Unknown Analyte Negati ve Not Available [facility] Extended Services With [address], [place], [address], 11/05/2019 16:22:58 11/05/19 20 11/05/2019 urina lysis , dipst ick, auto Unknown Analyte Negati ve Not Available [facility] Extended Services With [address], [address], 11/05/2019 16:22:58 11/05/19 20 11/05/2019 urina lysis , dipst ick, auto Unknown Analyte Negati ve Not Available [facility] Extended Services With [address] [place], [address], 11/05/2019 16:22:58 11/05/19 20 11/05/2019 urina lysis , dipst ick, auto Unknown Analyte Negati ve Not Available [facility] Extended Services With [address], [place], [address], 11/05/2019 16:22:58 11/05/19 20 11/05/2019 urina lysis , dipst ick, auto Unknown Analyte Negtiv e Not Available [facility] [address] [place], [address], 11/05/2019 16:22:58 11/05/19 20 11/05/2019 urina lysis , dipst ick, auto Unknown Analyte Negati ve - Trace Not Available [facility] Extended Services With [address], [place], [address], 11/05/2019 16:22:58 11/05/19 20 11/05/2019 urina lysis , dipst ick, auto Unknown Analyte Normal Not Available [facility] Services With [address] [place], [address], 11/05/2019 16:22:58 11/05/19 20 11/05/2019 urina lysis , dipst ick, auto Unknown Analyte Normal Not Available [facility] With [address] [place], [address], 11/05/2019 16:22:58 11/05/19 20 11/05/2019 urina lysis , dipst ick, auto Unknown Analyte Negati ve Not Available [facility] Extended Services With [address] [place], [address], 11/05/2019 16:22:58 11/05/19 20 11/05/2019 urina lysis , dipst ick, auto Unknown Analyte Negati ve Not Available [facility] With [address] [place], [address], 11/05/2019 16:22:58 11/05/19 20 11/05/2019 urina lysis , dipst ick, auto Unknown Analyte Normal Not Available [facility] Services With [address], [place], [address], 11/05/2019 16:22:58 11/05/19 20 11/05/2019 urina lysis , dipst ick, auto Unknown Analyte Normal - 1mg/dl Not Available [facility] Extended Services With [address], [place], [address], 11/05/2019 16:22:58 11/05/19 20 11/05/2019 urina lysis , dipst ick, auto Unknown Analyte Negati ve Not Available [facility] Extended Services With [address] [place], [address], 11/05/2019 16:22:58 11/05/19 20 11/05/2019 urina lysis , dipst ick, auto Unknown Analyte Negati ve Not Available [facility] Extended Services With [address], [place], [address], 11/05/2019 16:22:58 11/05/19 20 11/05/2019 urina lysis , dipst ick, auto Unknown Analyte Negati ve Not Available [facility] Services With [address], [place], [address], 11/05/2019 16:22:58 11/05/19 20 11/05/2019 urina lysis , dipst ick, auto Unknown Analyte Negati ve Not Available [facility] Services With [address], [place], [address], 11/05/2019 16:22:58 11/05/19 20 11/05/2019 urina lysis , dipst ick, auto Unknown Analyte Clean Catch Not Available [facility] With [address], [place], [address], 11/05/2019 16:22:58 11/05/19 20 11/05/2019 urina lysis , dipst ick, auto Unknown Analyte Automa hanna Not Available [facility] Extended Services With [address], [place], [address], 11/05/2019 16:22:58 Result Notes None recorded. Medical Equipment None Reported. Allergies Allergen ID Allergen Name Allergen Category Reaction Reaction Severity Criticality Documentation Date Start Date Code Code System Note Provider Name and Address Organization Details Recorded Time 797777 adhesive environme nt,medica tion Not available Not available Not available 11/05/2019 [id number] [address] [facility] 0 16:18:27 Medications Name Sig Start Date [...] Updated DateTime 11/05/2019 177.8 cm 30.4 kg/m2 52767.58 g [facility] 11/05/2019 16:18:13 Date Recorded Body height Body mass index (BMI) Body weight Provider Name and Address Organization Details Last Updated DateTime 11/19/2019 177.8 cm 30.4 kg/m2 27745.58 g [facility] 11/19/2019 13:59:31 Date Recorded Body height Body mass index (BMI) Body weight Body temperature Provider Name and Address Organization Details Last Updated DateTime 03/24/2020 177.8 cm 30.4 kg/m2 00017.58 g 98 [degF] [facility] 03/24/2020 16:00:10 Social History Question Answer Notes LastModified by Organizat ion Details LastModified Time Tobacco Smoking Status Former Smoker [facility] 11/05/2019 16:19:39 Marital Status Informatio n not [...] SNOMED-CT Code Diagnosis ICD10 Code Diagnosis Note [id number] ADAM GARZON MD [facility] [address] [place] [address] ,[place] [address] 11/05/2019 14:19:05 11/05/2019 15:41:41 Testicular hypofunction 346650443 E29.[id number] [facility] [address] [address] 11/19/2019 13:22:20 11/19/2019 13:59:07 Testicular hypofunction 374885834 E29.[id number] [facility] [address] ,[place] [address] 03/24/2020 14:15:00 03/24/2020 15:27:39 Benign prostatic hyperplasia with outflow obstruction 197167598 N40.1 Testicular hypofunction 371931361 E29.1 Secondary polycythemia 23711682 D75.1 Liver func tion tests outside reference range 092524351 R94.5 Benign pro static hyperplasia 387464615 N40.1 Health Concerns Section Related Observation LastModified by Organization Detai ls LastModified Time None Recorded Concern Status LastModified by Organization Details LastModified Time None Recorded Advance Directives Directive None Recorded Payers Insurance Date Sequence Insurance Name Policy Number Policy Rodriguez Covered Member ID Rodriguez Member ID Guarantor Name 05/23/2020 [employer] (MEDICARE REPLACEMENT/AD VANTAGE - PPO) [employer] Gr [id number] [employer] Gr 05/23/2020 1 [employer] - [employer]ICEC[employer] (PPO) [employer] Gr [id number] [employer] Notes Date Note Type Note [...] but does report dysuria. ADAM GARZON MD [address] [place] [address], [phone], [facility] 11/08/2019 15:59:13 11/19/2019 text/html 49-year-old male in [...] nocturia 2-3 times nightly. ADAM GARZON MD [address] [place] [address], [phone], [facility] 11/21/2019 17:04:02 03/24/2020 text/html 49-year-old male in the office for follow-up evaluation of testicular hypofunction. He uses testosterone 1.62% transdermal gel, 2 pumps daily. He continues to have low energy level and low libido. He has troubles obtaining and maintaining an erection. Testosterone from 03/09/20 was 187 and PSA normal at 0.44. ADAM GARZON MD [facility] [place], [address], [facility] 03/27/2020 14:04:15
[2025-03-19 17:28] VITALS: BP 164/72; PULSE 60; RESP 16; TEMP 37.1; O2SAT 96
[2025-03-19 17:42] VITALS: BP 164/72; PULSE 60; RESP 16; TEMP 37.1; O2SAT 96; BMI 25.2
--- NOTE | 2025-03-19 17:46 | XR_ITS ---
PROCEDURE INFORMATION: Exam: XR Right Ankle Exam date and time: 03/19/2025 6:09 PM Age: 54 years old Clinical indication: Pain; Ankle; Right; Additional info: Pain; Fracture in oct. TECHNIQUE: Imaging protocol: Radiologic exam of the right ankle. Views: 3 or more views. COMPARISON: CT ANKLE RT WO CON 02/10/2025 7:17 AM FINDINGS: Bones/joints: Unchanged alignment of a previous distal fibular fracture which demonstrates interval healing changes. No acute fracture or malalignment. Mild calcaneal enthesopathy. Soft tissues: Soft tissue swelling. IMPRESSION: Unchanged alignment of a previous distal fibular fracture which demonstrates interval healing changes. Soft tissue swelling without acute osseous findings otherwise.
--- NOTE | 2025-03-19 18:15 | ED_ITS ---
<Statement entered by Fortunato Vasquez MD - 03/19/25 23:00> I was consulted by the LAINE, and we discussed the complexity of the problems being addressed. I approved the treatment and management plan for this patient's care in the emergency department, thus performing a substantive portion of the medical decision making. Fortunato Vasquez MD, ERIN, FACEP Discharge Plan Disposition Patient Disposition: Home, Self-Care Prescriptions Prescriptions: No Action Creon 36,000-114,000- 180,000 unit capsule,delayed release(DR/EC) 1 cap PO TID Qty: 100 6RF Rx Instructions: administer with meals and/or snacks atorvastatin 40 mg tablet 40 mg PO HS Qty: 90 3RF hydrochlorothiazide 25 mg tablet 25 mg PO DAILY Qty: 90 3RF losartan 100 mg tablet See Rx Instructions .ROUTE .COMPLEX Qty: 90 3RF Dose Instruction: TAKE 1 TABLET BY MOUTH ONCE A DAY Rx Instructions: TAKE 1 TABLET BY MOUTH ONCE A DAY metoprolol succinate 200 mg tablet extended release 24 hr 200 mg PO DAILY Qty: 90 3RF ibuprofen 600 mg tablet 600 mg PO TID PRN (Reason: pain) 30 Days Qty: 90 1RF aspirin [Adult Low Dose Aspirin] 81 mg tablet,delayed release (DR/EC) 81 mg PO DAILY Qty: 90 3RF clotrimazole-betamethasone 1-0.05 % cream 1 applic topical BID Qty: 45 2RF benzonatate 100 mg capsule 100 mg PO TID PRN (Reason: cough) Qty: 30 0RF fluticasone propionate [Flonase Allergy Relief] 50 mcg/actuation spray,suspension 2 spray intranasal DAILY Qty: 16 2RF Rx Instructions: administer into each nostril daily guaifenesin [Mucinex] 1,200 mg tablet extended release 12hr 1,200 mg PO BID Qty: 20 0RF oxybutynin chloride 10 mg tablet extended release 24hr 10 mg PO DAILY 90 Days Qty: 90 1RF tamsulosin [Flomax] 0.4 mg capsule 0.4 mg PO DAILY 90 Days Qty: 90 1RF testosterone [AndroGel] 20.25 mg/1.25 gram (1.62 %) gel in metered-dose pump 4 pump topical DAILY 30 Days Qty: 150 3RF Rx Instructions: apply 4 pump amount over max area of EACH upper arm and shoulder (DME) blood-glucose meter [True Metrix Glucose Meter] [facility] [place] See Rx Instructions .ROUTE .COMPLEX Qty: 1 0RF Dose Instruction: USE DIRECTED Rx Instructions: USE DIRECTED (DME) lancets [TRUEplus Lancets] 28 gauge misc See Rx Instructions .ROUTE .COMPLEX Qty: 100 0RF Dose Instruction: CHECK BLOOD SUGAR ONCE OR TWICE A A DAY Rx Instructions: CHECK BLOOD SUGAR ONCE OR TWICE A A DAY (DME) True Metrix Glucose Test Strip Strip See Rx Instructions .Route Qty: 100 0RF Rx Instructions: Use to check blood sugar daily and prn diphenoxylate-atropine [Lomotil] 2.5-0.025 mg tablet 1 tab PO TID PRN (Reason: diarrhea) Qty: 14 1RF cholestyramine (with sugar) [Questran] 4 gram powder 4 g PO BID Qty: 378 4RF Rx Instructions: administer w/meal; avoid other meds within 1hr before or 4-6hr after dose nicotine 21 mg/24 hr patch 24 hour 1 patch transdermal DAILY Qty: 28 5RF quetiapine [Seroquel] 200 mg tablet 200 mg PO DAILY Qty: 90 3RF gabapentin 300 mg capsule 300 mg PO BID Qty: 60 2RF metformin 1,000 mg tablet See Rx Instructions .ROUTE .COMPLEX Qty: 60 0RF Dose Instruction: TAKE ONE TABLET BY MOUTH 2 TIMES A DAY Rx Instructions: TAKE ONE TABLET BY MOUTH 2 TIMES A DAY fluoxetine [Prozac] 20 mg capsule 20 mg PO DAILY Qty: 90 3RF cholecalciferol (vitamin D3) 1,250 mcg (50,000 unit) capsule See Rx Instructions .ROUTE .COMPLEX Qty: 12 2RF Dose Instruction: TAKE 1 CAPSULE BY MOUTH ONCE WEEKLY FOR 3 MONTHS Rx Instructions: TAKE 1 CAPSULE BY MOUTH ONCE WEEKLY FOR 3 MONTHS pantoprazole 40 mg tablet,delayed release (DR/EC) 40 mg PO DAILY Qty: 30 0RF Referrals Follow up/Referrals: Dr. Valencia [Other] - See instructions Rowdy Valencia DO [Staff Physician, Orthopedics] - See instructions Pineda Glover MD [Primary Care Provider, Family Practice] - See instructions Clinical Impressions Clinical Impression: Closed fibular fracture, Ankle fracture, right Instructions Patient Instructions: Ankle Fracture Print Language Print Language: Malaysian Discharge ED Provider: Fortunato Vasquez General Adult HPI General Chief complaint: Extremity Injury, Lower Stated complaint: rt ankle swollen, sore, was broke in Oct Time Seen by Provider: 03/19/25 17:53 Mode of Arrival: Wheelchair Source of Information: Patient Description of Symptoms (Recalled from ER Triage Doc. by RN): pt c/o R ankle pain. pt reports he was mowing yesterday and did not wear his ankle brace given by . pt states he broke this ankle earlier in October. pt states at rest his pain is 4/10 and 6/10 when bearing weight. pt has not taken any medication for pain today. History of Present Illness HPI narrative: 54-year-old male presents to the ED today for complaint of right ankle swelling and pain. Patient broke his right ankle in October on ice. He saw Dr. Johnson and had a bone stimulator and walking boot. He said he mowed yesterday and the ankle started swelling and having pain when he walks on it. The pain is 6 out of 10. Related Data Previous Rx's ?Medication ?Instructions ?Recorded blood-glucose meter (True Metrix ##1 01/11/23 Glucose Meter) lancets 28 gauge (TRUEplus Lancets) #100 ea 05/09/23 blood sugar diagnostic (True #100 ea 04/28/24 Metrix Glucose Test Strip) diphenoxylate-atropine 2.5 1 tab PO TID PRN diarrhea # 14 tabs 06/22/24 mg-0.025 mg tablet (Lomotil) cholestyramine (with sugar) 4 gram 4 g PO BID #378 gra ms 07/10/24 oral powder (Questran) [id number]-[id number] 1 cap PO TID #100 caps 07/21 36,000-114,000-180,000 unit capsule,delay rel (Creon) aspirin 81 mg tablet,delayed 81 mg PO DAILY #90 tabs 1 11/08/23 release (Adult Low Dose Aspirin) nicotine 21 mg/24 hr daily 1 patch transdermal DAILY # 28 ea 09/09/24 transdermal patch ibuprofen 600 mg tablet 600 mg PO TID PRN pain 30 da ys #90 11/09/24 tabs quetiapine 200 mg tablet (Seroquel) 200 mg PO DAILY #9 0 tabs 11/23/24 clotrimazole-betamethasone 1 1 applic topical BID #45 grams 01/12/25 %-0.05 % topical cream benzonatate 100 mg capsule 100 mg PO TID PRN cough #30 caps 02/02/25 fluticasone propionate 50 2 spray intranasal DAILY #16 grams 02/02/25 mcg/actuation nasal spray,suspension (Flonase Allergy Relief) gabapentin 300 mg capsule 300 mg PO BID #60 caps 02/02 guaifenesin 1,200 mg tablet, 1,200 mg PO BID #20 tabs 02/02/25 extended release 12 hr (Mucinex) oxybutynin chloride 10 mg 10 mg PO DAILY 90 days #90 t abs 03/01/25 tablet,extended release 24 hr tamsulosin 0.4 mg capsule (Flomax) 0.4 mg PO DAILY 90 days #90 caps 03/01/25 testosterone (AndroGel) 4 pump topical DAILY 30 days #150 03/01/25 grams atorvastatin 40 mg tablet 40 mg PO HS #90 tabs 5 hydrochlorothiazide 25 mg tablet 25 mg PO DAILY #90 ta bs 03/04/25 losartan 100 mg tablet See Rx Instructions .Route 0 03/04/25 .COMPLEX #90 tabs metformin 1,000 mg tablet See Rx Instructions .Route 0 03/04/25 .COMPLEX #60 tabs metoprolol succinate 200 mg 200 mg PO DAILY #90 tabs 0 03/04/25 tablet,extended release 24 hr fluoxetine 20 mg capsule (Prozac) 20 mg PO DAILY #90 c aps 03/11/25 cholecalciferol (vitamin D3) 1,250 See Rx Instructions .Route 03/15/25 mcg (50,000 unit) capsule .COMPLEX #12 caps pantoprazole 40 mg tablet,delayed 40 mg PO DAILY #30 t abs 03/17/25 release Allergies Allergy/AdvReac Type Severity Reaction Status Date / Time venom-honey bee Allergy Severe Anaphylaxis Verified 03/19/25 17:49 nickel Allergy Unknown Hives Verified 03/19/25 17:49 adhesive tape Allergy Rash Verified 03/19/25 17:49 [facility] Disclaimer: The information contained in this section may have been updated after the patient was seen, as this information can be updated by other users. 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 Sinusitis Benign prostatic hyperplasia Carotid stenosis Tinea cruris Viral upper respiratory infection Depression Asthma COPD (chronic obstructive pulmonary disease) Angina pectoris Diabetes Dizziness Dyspnea Fatigue CAD (coronary artery disease) Chest pain SOB (shortness of breath) Abnormal stress test Hyperlipidemia GERD (gastroesophageal reflux disease) Hypertension Surgical History History of surgical procedure on mouth History of nasal surgery Family History Mother Thyroid cancer Father Prostate cancer Arrhythmia Social History Smoking Status: Current every day smoker tobacco type: cigarettes packs per day: 1 second hand exposure: No alcohol intake: never substance use type: denies use current occupational status: disabled Travel in the last 8 weeks?: None household members: family housing: house current occupation: unemployed current occupational exposures/hazards: No caffeine: Yes Have you lived/traveled outside US in past 30 days?: No Contact w/someone who lives/traveled outside US past 30 days?: No Exposure to someone with infectious disease in past 14 days?: No Do you have a fever (greater than 100.4 F or 38 C)?: No Have you tested positive for COVID-19?: No Exposed to someone with COVID-19 in past 14 days?: No Do you have a sore throat?: No Do you have a cough?: No Do you have any weakness?: No Do you have any diarrhea?: No Are you experiencing any unusual bleeding?: No Do you have any muscle aches/pain?: No Do you have any abdominal pain?: No Are you experiencing loss of taste or smell?: No Other 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 Have you received the Flu Vaccine for this season: No Have you received the Pneumonia Vaccine: No ROS Obtained: Yes Systems reviewed as appropriate & no additional complaints except as documented Constitutional Constitutional: Reports as per HPI Physical Exam General General appearance: alert Head Head exam: atraumatic and normocephalic Eye Eye exam: Present PERRL and EOMI ENT ENT exam: Present normal oropharynx and mucous membranes moist Neck Neck exam: Present full ROM and trachea midline Respiratory Respiratory exam: Present normal lung sounds bilaterally Cardiovascular Cardiovascular exam: Present regular rate, normal rhythm, normal heart sounds, +S1 and +S2 Extremities Exam Extremities exam: Present normal inspection, tenderness, normal capillary refill, edema (Right lateral malleolus) and joint swelling Neurological Exam Neurological exam: Present alert and oriented X3 Skin Skin exam: Present warm, dry and intact Medical Decision Making Medical Records Screening: Per USPSTF and CDC recommendations, given the prevalence of disease in our region, it is our hospital?s policy to screen for HIV and viral Hepatitis for all patients aged 18 and over and those with ongoing risk factors. Chidi Inquiry Pt receiving controlled substance: No Chidi was queried for this patient: No Vital Signs: 03/19/25 17:28 03/19/25 17:42 03/19/25 18:40 Temperature 98.8 F 98.8 F Temperature Source Oral Oral Pulse Rate 60 68 Pulse Rate [Left] 60 Respiratory Rate 16 16 17 Blood Pressure 164/72 H 137/62 Blood Pressure [Right Arm] 164/72 H Blood Pressure Mean [Right Arm] 102 Blood Pressure Source Automatic Cuff Automatic Cuff Blood Pressure Source [Right Arm] Automatic Cuff Blood Pressure Position Sitting Sitting Blood Pressure Position [Right Arm] Sitting 02 Sat by Pulse Oximetry 96 96 99 Oxygen Delivery Method Room Air Room Air Room Air 03/19/25 18:42 Temperature 98.8 F Temperature Source Pulse Rate 78 Pulse Rate [Left] Respiratory Rate 16 Blood Pressure 137/62 Blood Pressure [Right Arm] Blood Pressure Mean [Right Arm] Blood Pressure Source Blood Pressure Source [Right Arm] Blood Pressure Position Blood Pressure Position [Right Arm] 02 Sat by Pulse Oximetry Oxygen Delivery Method Orders (Tests/Meds): ED MEDICATIONS Discontinued Medications Generic Name Dose Route Start Last Admin Trade Name Khoa PRN Reason Stop Dose Admin Ibuprofen 800 mg 03/19/25 18:11 03/19/25 18:35 Ibuprofen 800 Mg Tablet PO 03/19/25 18:12 800 mg ONCE ONE Administration ORDERS Category Date Time Status Ankle XR -Right minimum 3 Views [XR ankle RT min 3V] Exams 03/19/25 17:46 Taken Stat Medical Decision Narrative: patient is a 54-year-old male presenting to the emergency department for evaluation of right ankle pain. Patient is hemodynamically stable and nontoxic- appearing upon arrival, afebrile. Differential diagnosis includes wrist fracture versus sprain or strain, among others. Workup will be conducted with x-ray of right ankle. Initial inventions include ibuprofen for pain. Imaging informally interpreted by me/Dr. Vasquez and remarkable for fibular fracture that is chronic. Formal imaging not read at this moment. Will send patient for follow-up outpatient with Dr. Valencia. Will place patient in walking boot and have him follow-up outpatient. Dr. Vasquez is agreeable with this plan. Patient safe for discharge home Critical Care Critical Care Time Critical Care Time: No
[2025-03-19] MEDS: IBUPROFEN 800 MG TABLET PO (18:35)
[2025-03-19 18:40] VITALS: BP 137/62; PULSE 68; RESP 17; O2SAT 99
[2025-03-19 18:42] VITALS: BP 137/62; PULSE 78; RESP 16; TEMP 37.1; O2SAT 99
== END 2025-03-19 18:43 | disposition home or self-care (01) ==
PROVIDERS: Emergency Provider Student in an Organized Health Care Education/Training Program; PCP Family Medicine
DX: S82.831A Other fracture of upper and lower end of right fibula, initial encounter for closed fracture (principal); X58.XXXA Exposure to other specified factors, initial encounter
CPT/HCPCS: 73610; 99283

== ENCOUNTER 2025-04-26 11:41 | Outpatient (CLI) | payer MEDICARE, SELFPAY ==
--- NOTE | 2025-04-26 11:44 | XR_ITS ---
FINAL REPORT CLINICAL HISTORY: Right ankle FX f/u COMPARISON: 03/19/2025 FINDINGS: RIGHT ANKLE 3 views of the right ankle were obtained. There is a partial healed oblique fracture of the distal fibula extending to the mortise. There is no widening of the ankle mortise seen. Tibia is intact. IMPRESSION: Partially healed distal fibular fracture. Reviewed, Interpreted and Dictated by Reno Montemayor MD Transcribed by Tequila Glaser Authenticated and . [facility]
== END 2025-04-26 23:59 | disposition home or self-care (01) ==
LOC: RAD 11:42
PROVIDERS: PCP Family Medicine; Visit Provider Podiatrist
DX: S82.431D Displaced oblique fracture of shaft of right fibula, subsequent encounter for closed fracture with routine healing (principal); X58.XXXD Exposure to other specified factors, subsequent encounter
CPT/HCPCS: 73610

== ENCOUNTER 2025-06-02 15:14 | Outpatient (CLI) | payer MEDICARE, SELFPAY ==
--- NOTE | 2025-06-02 15:19 | XR_ITS ---
FINAL REPORT CLINICAL HISTORY: right ankle fx COMPARISON: 04/26/2025 FINDINGS: RIGHT ANKLE 3 views of the right ankle were obtained. The previously noted oblique fracture of the distal fibula remains present, and is mildly displaced, unchanged from the prior exam. There is callus formation present at the fracture site. Incidental note is made of a small plantar calcaneal spur. The mortise is intact. Visualized joint spaces are normally aligned. Soft tissues are unremarkable. IMPRESSION: Oblique mildly displaced fracture of the distal fibula is stable, with no significant change in position since the prior exam. Reviewed, Interpreted and Dictated by Ronaldo Real MD Transcribed by Liana Recio Authenticated and . [facility]
== END 2025-06-02 23:59 | disposition home or self-care (01) ==
LOC: RAD 15:15
PROVIDERS: PCP Family Medicine; Visit Provider Orthopaedic Surgery
DX: S82.831K Other fracture of upper and lower end of right fibula, subsequent encounter for closed fracture with nonunion (principal)
CPT/HCPCS: 73610

== ENCOUNTER 2025-06-22 16:20 | Outpatient (CLI) | payer MEDICARE, SELFPAY ==
[2025-06-22 17:32] LABS: Hematocrit 40.3 % (42.0-52.0); Hemoglobin 13.4 g/dL (14.1-18.0); Immature Granulocytes % 0.5 %; Mean Corpuscular HGB Conc 33.3 g/dL (31.8-35.4); Mean Corpuscular Hemoglobin 30.9 pg (27.0-31.2); Mean Corpuscular Volume 93.1 fl (80-94); Nucleated Red Blood Cells % 0 %; Platelet Count 273 K/mm3 (142-424); Red Blood Count 4.33 M/mm3 (4.60-6.20); Red Cell Distribution Width-SD 50.5 fL; White Blood Count 6.5 K/mm3 (4.8-10.8)
[2025-06-24 12:15] LABS: PSA, Free 0.20 ng/mL; Testosterone,Total 1271 ng/dL (264-916)
== END 2025-06-22 23:59 | disposition home or self-care (01) ==
LOC: LAB 16:21
PROVIDERS: PCP Family Medicine; Visit Provider Urology
DX: R53.83 Other fatigue (principal)
CPT/HCPCS: 36415; 84153; 84154; 84270; 84403; 85025

== ENCOUNTER 2025-07-05 14:20 | Outpatient (CLI) | payer MEDICARE, SELFPAY ==
[2025-07-05 20:18] LABS: Albumin Level 4.6 g/dl (3.5-5.0); Chloride 101 mmol/L (98-107); Sodium 134 mmol/L (136-145)
[2025-07-05 20:19] LABS: Potassium 4.8 mmoL/L (3.5-5.1)
[2025-07-05 20:21] LABS: Alanine Aminotransferase 14 U/L (12-78); Albumin/Globulin Ratio 1.6 (1.1-1.8); Alkaline Phosphatase 61 U/L (38-126); Anion Gap 15.8 mEq/L (5-15); Aspartate Amino Transferase 24 U/L (17-59); Bilirubin,Total 0.4 mg/dl (0.2-1.3); Blood Urea Nitrogen 13 mg/dl (9-20); Carbon Dioxide 22 mmol/L (22.0-30.0); Creatinine,Serum 1.20 mg/dl (0.66-1.25); Estimated Glomerular Filt Rate 63 ml/min (>60); GFR (African American) 76 ML/MIN (>60); Globulin 2.8 g/dL (1.3-3.2); Total Protein,Serum 7.4 g/dl (6.3-8.2)
[2025-07-05 20:22] LABS: Calcium 9.1 mg/dl (8.4-10.2); Glucose 85 mg/dl (74-100)
[2025-07-05 20:53] LABS: Thyroid Stimulating Hormone 1.08 uIU/mL (0.465-4.68)
[2025-07-05 21:07] LABS: Hepatitis C Ab Qual. W/ RFX NEGATIVE (Negative)
--- OUTSIDE RECORDS SUMMARY | 2025-07-06 14:29 | XMS_ITS ---
Laboratory report Created on: June 26, 2025 SHARON MCCARTHY : 1970 Sex: Male Author Organization Unknown PROBLEMS Problems List Code Description RESULTS Laboratory Orders Date Order Code Test 2025-06-22 [id number] PSA TOTAL+% FREE 2025-06-22 [id number] TESTOSTERONE 2025-06-22 [id number] SEX HORM BINDING GLOB, SERUM Laboratory Results Date LOINC Test Value Unit Reference Range Interpre tation 2025-06-22 [id number] PROSTATE SPECIFIC AG .6 NG/ML 0.0-4.0 2025-06-22 [id number] PSA, FREE .2 NG/ML N/A 2025-06-22 96598-8 % FREE PSA 33.3 % 2025-06-22 [id number] TESTOSTERONE 1271 NG/DL 264-916 H 2025-06-22 [id number] SEX HORM BINDING GLOB, SERUM 39.6 NMOL/L 19.3-76.4
[2025-07-07 08:27] LABS: Hepatitis B Surface Antigen Negative (Negative)
== END 2025-07-05 23:59 | disposition home or self-care (01) ==
LOC: LAB.DROPOF 07-06 14:26
PROVIDERS: PCP Family Medicine; Visit Provider Family Medicine
DX: I20.9 Angina pectoris, unspecified (principal); E78.5 Hyperlipidemia, unspecified; F32.9 Major depressive disorder, single episode, unspecified; I10 Essential (primary) hypertension; Z11.59 Encounter for screening for other viral diseases
CPT/HCPCS: 80053; 84443; 86803; 87340; 87389

== ENCOUNTER 2025-07-07 13:24 | Outpatient (CLI) | payer MEDICARE, SELFPAY ==
--- NOTE | 2025-07-07 13:28 | XR_ITS ---
FINAL REPORT CLINICAL HISTORY: right ankle fx COMPARISON: 06/02/2025 FINDINGS: AP, oblique, and lateral views of the right ankle were obtained. There has been no significant interval change in the lateral malleolar fracture. No significant callus formation is noted. There is no new osseous abnormality identified. Degenerative joint disease is stable. There is no acute soft tissue abnormality. IMPRESSION: No significant interval change of the lateral malleolar fracture. Reviewed, Interpreted and Dictated by Yana Pulido MD Transcribed by Isabela Carl Authenticated and [facility]
== END 2025-07-07 23:59 | disposition home or self-care (01) ==
LOC: RAD 13:26
PROVIDERS: PCP Family Medicine; Visit Provider Orthopaedic Surgery
DX: S82.61XA Displaced fracture of lateral malleolus of right fibula, initial encounter for closed fracture (principal)
CPT/HCPCS: 73610

== ENCOUNTER 2025-07-12 10:00 | Outpatient (CLI) | payer MEDICARE, SELFPAY ==
--- OUTSIDE RECORDS SUMMARY | 2025-07-13 10:32 | XMS_ITS ---
Laboratory report Created on: July 09, 2025 SHARON MCCARTHY : 1970 Sex: Male Author Organization Unknown PROBLEMS Problems List Code Description RESULTS Laboratory Orders Date Order Code Test 2025-07-05 [id number] [facility] SCREEN Laboratory Results Date LOINC Test Value Unit Reference Range Interpre tation 2025-07-05 [id number] HBSAG SCREEN N NEGATIVE
== END 2025-07-12 23:59 | disposition home or self-care (01) ==
LOC: LAB.DROPOF 07-13 10:26
PROVIDERS: PCP Urology; Visit Provider Urology
DX: K62.9 Disease of anus and rectum, unspecified (principal)
CPT/HCPCS: 87624

== ENCOUNTER 2025-07-14 14:01 | Outpatient (CLI) | payer MEDICARE, SELFPAY ==
[2025-07-14 14:35] LABS: Hematocrit 39.4 % (42.0-52.0); Hemoglobin 13.7 g/dL (14.1-18.0); Immature Granulocytes % 0.8 %; Mean Corpuscular HGB Conc 34.8 g/dL (31.8-35.4); Mean Corpuscular Hemoglobin 32.2 pg (27.0-31.2); Mean Corpuscular Volume 92.7 fl (80-94); Nucleated Red Blood Cells % 0 %; Platelet Count 288 K/mm3 (142-424); Red Blood Count 4.25 M/mm3 (4.60-6.20); Red Cell Distribution Width-SD 51.5 fL; White Blood Count 6.1 K/mm3 (4.8-10.8)
[2025-07-16 12:13] LABS: Testosterone,Total 471 ng/dL (264-916)
== END 2025-07-14 23:59 | disposition home or self-care (01) ==
LOC: LAB 14:02
PROVIDERS: PCP Family Medicine; Visit Provider Urology
DX: N40.0 Benign prostatic hyperplasia without lower urinary tract symptoms (principal); N48.9 Disorder of penis, unspecified; E29.1 Testicular hypofunction
CPT/HCPCS: 36415; 84270; 84403; 85025

== ENCOUNTER 2025-07-30 08:41 | Day surgery (SDC) | payer MEDICARE, SELFPAY ==
[2025-07-29 10:53] VITALS: BMI 27.3
[2025-07-30] VITALS (10 sets, daily range): BP systolic 121–138; BP diastolic 62–82; PULSE 53–58; RESP 12–18; TEMP 36.1–36.3; O2SAT 93–100
[2025-07-30] MEDS: LACTATED RINGERS 1000ML 1,000 ML 25 ML IV (08:57)
--- NOTE | 2025-07-30 09:09 | HMH.PROCNOTE ---
[facility] Procedure Note Date: 07/30/25 Time: 09:09 Procedure Note:: Chart review: 54-year-old patient who has been having troubles with overactive bladder and a weak urine stream. The patient also has fatigue and has been on AndroGel 2 pump applications daily. He stopped caffeine he says and now is doing better on oxybutynin and Flomax. His postvoid residual urine 07/08 was 4 cc. His PSA is 0.6 on 08/07. His calculated free testosterone was 8 on 08/07. He was having BPH symptoms with LUTS and particular concerned about dribbling The patient has 2 penile lesions as well. They have been present for a couple years. At times he squeezes on it when he says all dias comes out. He also has a small sebaceous cyst of the scrotum. We are going to do an excisional biopsy of those 3 lesions. He wants the lesions removed because he fears that a partner might think he has an STD. Pre-Op diagnosis: BPH with LUTS/penile cysts x 2/scrotal sebaceous cyst Postop diagnosis: BPH with LUTS/penile cysts x 2/scrotal sebaceous cyst Operative note: The patient was brought to the operating room. LMAC anesthesia was administered. He is prepped and draped using a sterile technique. Each of the 3 lesions underwent an excisional biopsy. The edges of the biopsy were reapproximated with 5-0 chromic. Hemostasis was assured. The estimated blood loss for the entire excisional biopsies of the 3 samples was less than 10 cc. The patient then underwent flexible cystoscopy. The anterior urethra was unremarkable. From the level of the verumontanum the patient has grade 1 prostate obstruction. There is fine trabeculation throughout the bladder. The bladder wall is Kenedy pink in color throughout without evidence of bladder stone tumor hemorrhage or infection. The ureteral openings are normal bilaterally. He has clear efflux of urine. He tolerated the procedure well.
[2025-07-30] MEDS: BUPIVACAINE 0.5% 30ML VIAL 150 MG (09:56)
[2025-07-30] MEDS: 0.9 % SODIUM CHLORIDE 500 ML 100 ML IV (09:59)
--- NOTE | 2025-07-30 10:26 | P.PNANES_ITS ---
[facility] Disclaimer: The information contained in this section may have been updated after the patient was seen, as this information can be updated by other users. 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 Sinusitis Benign prostatic hyperplasia Carotid stenosis Tinea cruris Viral upper respiratory infection Depression Asthma COPD (chronic obstructive pulmonary disease) Angina pectoris Diabetes Dizziness Dyspnea Fatigue CAD (coronary artery disease) Chest pain SOB (shortness of breath) Abnormal stress test Hyperlipidemia GERD (gastroesophageal reflux disease) Hypertension Surgical History History of surgical procedure on mouth History of nasal surgery Family History Mother Thyroid cancer Father Prostate cancer Arrhythmia Social History Smoking Status: Current every day smoker tobacco type: cigarettes packs per day: 1 second hand exposure: No alcohol intake: never substance use type: denies use current occupational status: disabled Travel in the last 8 weeks?: None household members: family housing: house current occupation: unemployed current occupational exposures/hazards: No caffeine: Yes Have you lived/traveled outside US in past 30 days?: No Contact w/someone who lives/traveled outside US past 30 days?: No Exposure to someone with infectious disease in past 14 days?: No Do you have a fever (greater than 100.4 F or 38 C)?: No Have you tested positive for COVID-19?: No Exposed to someone with COVID-19 in past 14 days?: No Do you have a sore throat?: No Do you have a cough?: No Do you have any weakness?: No Do you have any diarrhea?: No Are you experiencing any unusual bleeding?: No Do you have any muscle aches/pain?: No Do you have any abdominal pain?: No Are you experiencing loss of taste or smell?: No [facility] Anesthesia Checklist Patient Identification Patient Identification: Verbal (Name & ) Structural Data Admitted From: Home Planned Operative Procedure/s: cysto Consent for Planned Operative Procedure(s) Verified: Yes NPO Status Verified Time NPO: 00:00 Additional verifications Anesthesia Reactions: No Hx Blood Transfusions: No Blood Transfusion Reaction: No Airway Assessment Mallampati Score:: Class II C-Spine Mobility Assessed: Yes TMJ Mobility Assessed: Yes Dentition: Poor Dentition Neurological Assessment Level of Consciousness: Awake, Alert and Appropriate Anesthesia Plan Anesthesia Risk discussed: Yes Anesthesia Plan: Verified ASA Class: II Anesthesia Type: General
--- NOTE | 2025-07-30 10:27 | EXP.ANES.I ---
[facility] Anesthesia Record Part I Anesthesia Record I Intake, IV Amount: 1,000 Hydration: Adequate Estimated blood loss (mL): 0 Urine output (mL): 0 Blood Pressure: 138/76 SaO2: 94 Pulse Rate: 58 Airway Patency: Patent Respiratory Rate: 12 Temperature: 97.2 F Patient is:: Awake and Stable Stable to PACU at:: 10:25
[2025-07-30 10:42] LABS: POC Glucose,Bedside 87 gm/dL (70-110)
[2025-07-30 12:28] LABS: POC Glucose,Bedside 85 gm/dL (70-110)
--- NOTE | 2025-07-30 13:30 | P.PNANES_ITS ---
[facility] Anesthesia Record Part II Anesthesia Record Part II Discharge Time: 10:55 Destination: Surgical Day Care (OP Surgery) PACU nurse assessment reviewed?: Yes Patient Condition:: Good Anesthesia Complications:: None Swallowing reflex intact?: Yes Airway Patency: Patent Cyanosis?: No Blood Pressure: 129/66 SaO2: 100 Respiratory Rate: 16 Pulse Rate: 57 Temperature: 97.2 F Mental Status: Alert & Oriented Pain level:: 0 Nausea and/or vomitting:: None Intake, IV Amount: 0 Hydration: Adequate
== END 2025-07-30 11:26 | disposition home or self-care (01) ==
PROVIDERS: PCP Family Medicine; Visit Provider Urology
PROC: 0TJB8ZZ Inspection of Bladder, Via Natural or Artificial Opening Endoscopic (ICD-10-PCS; CPT 52000; principal; 2025-07-30 09:45)
DX: B07.9 Viral wart, unspecified (principal); N40.0 Benign prostatic hyperplasia without lower urinary tract symptoms; E29.1 Testicular hypofunction; N52.9 Male erectile dysfunction, unspecified; K21.9 Gastro-esophageal reflux disease without esophagitis; I10 Essential (primary) hypertension; F32.A Depression, unspecified; F17.210 Nicotine dependence, cigarettes, uncomplicated; N48.9 Disorder of penis, unspecified; L72.3 Sebaceous cyst
CPT/HCPCS: 54100 ×2; 82962; 88305; J0665; J1100; J2003; J2250; J2405; J2704; J7040; J7120

== ENCOUNTER 2025-08-12 18:17 | Emergency (ER) | payer MEDICARE, SELFPAY ==
[2025-08-12 18:35] VITALS: PULSE 56; RESP 20; TEMP 36.8; O2SAT 97; BMI 23.6
[2025-08-12 18:43] VITALS: BP 146/86; PULSE 69; RESP 14; O2SAT 95
--- NOTE | 2025-08-12 18:44 | ECG_ITS ---
APPROVED REPORT Exam: Resting ECG HR:61 bpm ECG Measurements Heart Rate 61 AXES WI 158 P 75 QRSd 96 QRS 75 QT 367 T 55 QTc 370 Conclusion Normal sinus rhythm without acute ST or T wave changes concerning for ischemia Electronically signed by : Carmen Pepe, 08/13/2025 00:40:38
--- NOTE | 2025-08-12 18:59 | XR_ITS ---
PROCEDURE INFORMATION: Exam: XR Chest Exam date and time: 08/12/2025 7:49 PM Age: 54 years old Clinical indication: Other: Tightness; Additional info: Chest tightness TECHNIQUE: Imaging protocol: Radiologic exam of the chest. Views: 1 view. COMPARISON: CT ANGIO CHEST PE PROTOCOL 08/12/2025 7:47 PM FINDINGS: Lungs: Probable atelectatic changes. Pleural spaces: No pneumothorax. Heart/Mediastinum: Unremarkable cardiomediastinal silhouette. Bones/joints: No acute osseous findings. Other findings: Multiple high attenuation densities projecting over the partially visualized left upper extremity IMPRESSION: No focal consolidation.
--- NOTE | 2025-08-12 18:59 | CT_ITS ---
PROCEDURE INFORMATION: Exam: CT Head Without Contrast Exam date and time: 08/12/2025 7:44 PM Age: 54 years old Clinical indication: Pain; Headache TECHNIQUE: Imaging protocol: Computed tomography of the head without contrast. Radiation optimization: All CT scans at this facility use at least one of these dose optimization techniques: automated exposure control; mA and/or kV adjustment per patient size (includes targeted exams where dose is matched to clinical indication); or iterative reconstruction. COMPARISON: US CA CAROTID DUPLEX BI 01/28/2025 1:36 PM FINDINGS: Brain: There is mild diffuse cerebral volume loss present. Multiple subcortical and deep hypoattenuating white matter foci are present, likely related to small vessel senescent changes and can also be seen with prior infectious / inflammatory insult, or prior traumatic events. No hyperattenuating foci are identified to suggest acute intracranial hemorrhage. Cerebral ventricles: No ventriculomegaly. Paranasal sinuses: Visualized sinuses are unremarkable. No fluid levels. Mastoid air cells: Visualized mastoid air cells are well aerated. Bones: Unremarkable. No acute fracture. Soft tissues: Unremarkable. IMPRESSION: 1. Multiple subcortical and deep hypoattenuating white matter foci are present, likely related to small vessel senescent changes and can also be seen with prior infectious / inflammatory insult, or prior traumatic events. 2. No hyperattenuating foci are identified to suggest acute intracranial hemorrhage.
--- NOTE | 2025-08-12 19:00 | ED_ITS ---
<Statement entered by Carmen Pepe DO - 08/13/25 00:14> I was consulted by the LAINE, and we discussed the complexity of problems being addressed. I approve the treatment and management plan for this patient's care in the emergency department, thus performing a substantial portion of the medical decision making. Carmen Pepe DO Discharge Plan Disposition Patient Disposition: Home, Self-Care Condition: Good Prescriptions Prescriptions: No Action atorvastatin 40 mg tablet 40 mg PO HS Qty: 90 3RF hydrochlorothiazide 25 mg tablet 25 mg PO DAILY Qty: 90 3RF metoprolol succinate 200 mg tablet extended release 24 hr 200 mg PO DAILY Qty: 90 3RF ryigeqxkwy-vesswbeawbcob-fmbd [Fioricet] 50-300-40 mg capsule 1 cap PO Q8H PRN (Reason: pain) Qty: 20 0RF testosterone [AndroGel] 20.25 mg/1.25 gram (1.62 %) gel in metered-dose pump 2 pump topical DAILY 30 Days Qty: 75 3RF Rx Instructions: apply 4 pump amount over max area of EACH upper arm and shoulder oxybutynin chloride 10 mg tablet extended release 24hr 10 mg PO DAILY 90 Days Qty: 90 1RF tamsulosin [Flomax] 0.4 mg capsule 0.4 mg PO DAILY 90 Days Qty: 90 1RF aspirin [Adult Low Dose Aspirin] 81 mg tablet,delayed release (DR/EC) 81 mg PO DAILY Qty: 90 3RF fluoxetine [Prozac] 40 mg capsule 40 mg PO DAILY Qty: 90 3RF bupropion HCl [Wellbutrin XL] 150 mg tablet extended release 24 hr 150 mg PO DAILY Qty: 90 3RF desvenlafaxine succinate 100 mg tablet extended release 24 hr 100 mg PO ONCE Qty: 90 0RF (DME) blood-glucose meter [True Metrix Glucose Meter] Misc See Rx Instructions .ROUTE .COMPLEX Qty: 1 0RF Dose Instruction: USE DIRECTED Rx Instructions: USE DIRECTED (DME) lancets [TRUEplus Lancets] 28 gauge misc See Rx Instructions .ROUTE .COMPLEX Qty: 100 0RF Dose Instruction: CHECK BLOOD SUGAR ONCE OR TWICE A A DAY Rx Instructions: CHECK BLOOD SUGAR ONCE OR TWICE A A DAY (DME) True Metrix Glucose Test Strip Strip See Rx Instructions .Route Qty: 100 0RF Rx Instructions: Use to check blood sugar daily and prn quetiapine [Seroquel] 200 mg tablet 200 mg PO DAILY Qty: 90 3RF alprazolam 2 mg tablet 2 mg PO DAILY PRN (Reason: anxiety) Qty: 10 0RF gabapentin 300 mg capsule 300 mg PO BID Qty: 60 2RF pantoprazole 40 mg tablet,delayed release (DR/EC) 40 mg PO DAILY Rx Instructions: TAKE 1 TABLET BY MOUTH ONCE A DAY metformin 1,000 mg tablet 1,000 mg PO DAILY Rx Instructions: TAKE ONE TABLET BY MOUTH 2 TIMES A DAY losartan 100 mg tablet 100 mg PO DAILY Rx Instructions: TAKE 1 TABLET BY MOUTH ONCE A DAY cholecalciferol (vitamin D3) 1,250 mcg (50,000 unit) capsule 1,250 mcg PO DAILY Rx Instructions: TAKE 1 CAPSULE BY MOUTH ONCE WEEKLY FOR 3 MONTHS Referrals Follow up/Referrals: Thomas Sadler MD [Staff Physician, Urology] - See instructions Pineda Glover MD [Primary Care Provider, Family Practice] - See instructions Activity Restrictions/Add. Instructions Additional Instructions/Restrictions: Please return to the emergency department with any worsening signs or symptoms. Please take all your medication as prescribed at home. Please follow-up with your PCP in the upcoming days for recheck of your blood work. Please follow-up with your urologist in the upcoming days/weeks. Clinical Impressions Clinical Impression: Leukocytosis, Headache Instructions Patient Instructions: DI for Leukocytosis, DI for Headache Print Language Print Language: Pashto Discharge ED Provider: Carmen Pepe Adult HPI General Chief complaint: PAIN Stated complaint: High blood pressure,weakness Time Seen by Provider: 08/12/25 18:41 Mode of Arrival: Ambulatory Source of Information: Patient Description of Symptoms (Recalled from ER Triage Doc. by RN): high blood pressure Dizzy and tired for past few days. History of Present Illness HPI narrative: 54-year-old male presents to the emergency department with concern over his blood pressure , patient states he took his blood pressure prior to arrival and it was 160 something . 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 Other past medical history is consistent with BPH, carotid stenosis, COPD, IBS, T2DM, bipolar 1 disorder, peripheral neuropathy, NETO/MDD, CAD, hyperlipidemia, hypogonadism, hypertension, GERD. Initial triage vitals are unremarkable. Repeat blood pressure is 146 systolic. Also of note, patient is in a ankle brace/bone stimulator following with orthopedics for a ankle fracture since May 2025. Also of note, patient had recent urologic procedure on 07/30/2025 for x 2 penile/scrotal sebaceous cysts. Please note that above description of symptoms, in this electronic medical record under categorization of recalled from ER triage doctor by RN are reflective of an initial nursing assessment, however, is not reflective of my full history and physical exam that was personally taken and clarified. Consequentially, this preceding description of symptoms, which may include the patient's categorized chief complaint in the EMR, do not reflect my personal clinical impression, and the ultimate description of history of present illness and patient stated complaints should be deferred to this section of the note. Unless stated otherwise or congruent with this section of the note, additional signs, symptoms, or incongruence should be interpreted as inaccurate with my clinical impression. Onset (ago): hour(s) Related Data Home Medications ?Medication ?Instructions ?Recorded ?Confirmed cholecalciferol (vitamin D3) 1,250 1,250 mcg PO DAILY 07/29/25 08/09/25 mcg (50,000 unit) capsule losartan 100 mg tablet 100 mg PO DAILY 07/29/25 metformin 1,000 mg tablet 1,000 mg PO DAILY 07/29/25 1 pantoprazole 40 mg tablet,delayed 40 mg PO DAILY 07/2908/09/25 release Previous Rx's ?Medication ?Instructions ?Recorded blood-glucose meter (True Metrix ##1 01/11/23 Glucose Meter) lancets 28 gauge (TRUEplus Lancets) #100 ea 05/09/23 blood sugar diagnostic (True #100 ea 04/28/24 Metrix Glucose Test Strip) aspirin 81 mg tablet,delayed 81 mg PO DAILY #90 tabs 1 11/08/23 release (Adult Low Dose Aspirin) quetiapine 200 mg tablet (Seroquel) 200 mg PO DAILY #9 0 tabs 11/23/24 atorvastatin 40 mg tablet 40 mg PO HS #90 tabs 5 hydrochlorothiazide 25 mg tablet 25 mg PO DAILY #90 ta bs 03/04/25 metoprolol succinate 200 mg 200 mg PO DAILY #90 tabs 0 03/04/25 tablet,extended release 24 hr bupropion HCl 150 mg 24 hr tablet, 150 mg PO DAILY #90 tabs 03/22/25 extended release (Wellbutrin XL) fluoxetine 40 mg capsule (Prozac) 40 mg PO DAILY #90 c aps 03/22/25 wxzxxqwtbf-fitradyfmpird-dzkqserb 1 cap PO Q8H PRN pato n #20 caps 05/03/25 50 mg-300 mg-40 mg capsule (Fioricet) alprazolam 2 mg tablet 2 mg PO DAILY PRN anxiety #1 0 tabs 05/19/25 desvenlafaxine succinate 100 mg 100 mg PO ONCE #90 tab s 07/05/25 tablet,extended release 24 hr testosterone (AndroGel) 2 pump topical DAILY 30 days #75 07/12/25 grams gabapentin 300 mg capsule 300 mg PO BID #60 caps 08/09 oxybutynin chloride 10 mg 10 mg PO DAILY 90 days #90 t abs 08/09/25 tablet,extended release 24 hr tamsulosin 0.4 mg capsule (Flomax) 0.4 mg PO DAILY 90 days #90 caps 08/09/25 Allergies Allergy/AdvReac Type Severity Reaction Status Date / Time venom-honey bee Allergy Severe Anaphylaxis Verified 08/09/25 11:02 nickel Allergy Unknown Hives Verified 08/09/25 11:02 adhesive tape Allergy Rash Verified 08/09/25 11:02 [facility] Disclaimer: The information contained in this section may have been updated after the patient was seen, as this information can be updated by other users. 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 Sinusitis Benign prostatic hyperplasia Carotid stenosis Tinea cruris Viral upper respiratory infection Depression Asthma COPD (chronic obstructive pulmonary disease) Angina pectoris Diabetes Dizziness Dyspnea Fatigue CAD (coronary artery disease) Chest pain SOB (shortness of breath) Abnormal stress test Hyperlipidemia GERD (gastroesophageal reflux disease) Hypertension Surgical History History of surgical procedure on mouth History of nasal surgery Family History Mother Thyroid cancer Father Prostate cancer Arrhythmia Social History Smoking Status: Current every day smoker tobacco type: cigarettes packs per day: 1 second hand exposure: No alcohol intake: never substance use type: denies use current occupational status: disabled Travel in the last 8 weeks?: None household members: family housing: house current occupation: unemployed current occupational exposures/hazards: No caffeine: Yes Have you lived/traveled outside [place] in past 30 days?: No Contact w/someone who lives/traveled outside [place] past 30 days?: No Exposure to someone with infectious disease in past 14 days?: No Do you have a fever (greater than 100.4 F or 38 C)?: No Have you tested positive for COVID-19?: No Exposed to someone with COVID-19 in past 14 days?: No Do you have a sore throat?: No Do you have a cough?: No Do you have any weakness?: Yes Do you have any diarrhea?: No Are you experiencing any unusual bleeding?: No Do you have any muscle aches/pain?: No Do you have any abdominal pain?: No Are you experiencing loss of taste or smell?: No Other 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 Have you received the Flu Vaccine for this season: No Have you received the Pneumonia Vaccine: Yes ROS Obtained: Yes All systems reviewed & no additional complaints except as documented Physical Exam General General appearance: alert and in no apparent distress Head Head exam: atraumatic and normocephalic Eye Eye exam: Present PERRL and EOMI ENT ENT exam: Present mucous membranes moist and TM's normal bilaterally Neck Neck exam: Present normal inspection; Absent meningismus Chest Chest inspection: Present normal inspection and symmetric chest wall rise Respiratory Respiratory exam: Present normal lung sounds bilaterally; Absent respiratory distress Cardiovascular Cardiovascular exam: Present regular rate and normal rhythm Abdominal Exam Abdominal exam: Present soft; Absent tenderness exam: Present normal inspection and other (Patient has areas of recent incision of his sebaceous cyst from scrotal cyst, no evidence of any wound dehiscence or drainage no erythema); Absent urethral discharge or scrotal swelling Extremities Exam Extremities exam: Present normal inspection Neurological Exam Neurological exam: Present alert and oriented X3 Psychiatric Psychiatric exam: Present normal affect Skin Skin exam: Present warm and dry Medical Decision Making Medical Records Medical records reviewed: Yes I reviewed the patient's medical records. Screening: Per USPSTF and CDC recommendations, given the prevalence of disease in our region, it is our hospital?s policy to screen for HIV and viral Hepatitis for all patients aged 18 and over and those with ongoing risk factors. Chidi Inquiry Pt receiving controlled substance: No Chidi was queried for this patient: No Vital Signs: 08/12/25 18:35 08/12/25 18:43 08/12/25 18:43 Temperature 98.2 F Temperature Source Oral Pulse Rate 69 Pulse Rate [Left Radial] 56 L Respiratory Rate 20 14 Blood Pressure 146/86 H Blood Pressure Mean 110 Blood Pressure Source [Right Arm] Automatic Cuff Blood Pressure Position [Right Arm] Sitting 02 Sat by Pulse Oximetry 97 95 Oxygen Delivery Method Room Air 08/12/25 19:26 Temperature Temperature Source Pulse Rate 56 L Pulse Rate [Left Radial] Respiratory Rate 15 Blood Pressure 140/82 Blood Pressure Mean Blood Pressure Source [Right Arm] Blood Pressure Position [Right Arm] 02 Sat by Pulse Oximetry 98 Oxygen Delivery Method Room Air Lab Data Lab results reviewed: Yes I reviewed the patient's lab results. Lab Results 08/12/25 18:49: WBC 20.6 H*, RBC 4.62, Hgb 15.1, Hct 43.4, MCV 93.9, MCH 32.7 H, MCHC 34.8, RDW 13.4, Plt Count 300, MPV 9.5, Neut % (Auto) 85.1 H, Lymph % (Auto) 9.4 L, Allen % (Auto) 4.5, Eos % (Auto) 0.4, Baso % (Auto) 0.2, Neut # (Auto) 17.6 H, Lymph # (Auto) 1.9, Allen # (Auto) 0.9, Eos # (Auto) 0.1, Baso # (Auto) 0.1, Total Counted 100, Neutrophils % (Manual) 81 H, Lymphocytes % (Manual) 14, Monocytes % (Manual) 4, Eosinophils % (Manual) 1, Platelet Estimate Normal, RBC Morphology Not Reportable, Polychromasia 1+, Poikilocytosis 1+, Macrocytosis 1+, Target Cells 1+, Tear Drop Cells 1+, D-Dimer 0.81 H, Sodium 130 L, Potassium 4.6, Chloride 94 L, Carbon Dioxide 25, Anion Gap 15.6 H, BUN 16, C reatinine 1.30 H, Estimated Creat Clear 69, Estimated GFR 58 L, Est GFR ( Amer) 70, Glucose 90, Calcium 9.6, Magnesium 1.4 L, Total Bilirubin 0.8, AST 28, ALT 24, Alkaline Phosphatase 70, Troponin I < 0.01, NT-Pro-B Natriuret Pep 272 H , Total Protein 8.7 H, Albumin 4.1, Globulin 4.6 H, Albumin/Globulin Ratio 0.9 L 08/12/25 19:27: Chlamy pneumoniae PCR Not detected, Adenovirus (PCR) Not detected, B. pertussis DNA (PCR) Not detected, Coronavirus OC43 (PCR) Not detected, Coronavirus HKU1 (PCR) Not detected, Coronavirus 229E (PCR) Not detected, SARS-CoV-2 (PCR) Not detected, Coronavirus NL63 (PCR) Not detected, Human Metapneumovir PCR Not detected, Influenza A (H1) PCR Not detected, Influ A (H1N1/09) PCR Not detected, Influenza A (H3) PCR Not detected, Influenza Type A (PCR) Not detected, Influenza Type B (PCR) Not detected, M. pneumoniae (PCR) Not detected, Parainfluenza 1 (PCR) Not detected, Parainfluenza 2 (PCR) Not detected, Parainfluenza 3 (PCR) Not detected, Parainfluenza 4 (PCR) Not detected, RSV (PCR) Not detected, Entero/Rhino (PCR) Not detected 08/12/25 20:03: Urine Color Yellow, Urine Appearance Clear, Urine pH 5.5, Ur Specific [place] 1.010, Urine Protein Negative, Urine Glucose (UA) Negative, Urine Ketones Negative, Urine Blood Negative, Urine Nitrate Negative, Urine Bilirubin Negative, Urine Urobilinogen 0.2, Ur Leukocyte Esterase Trace, Urine RBC None, Urine WBC 3-5, Ur Squamous Epith Cells None, Urine Bacteria None 08/12/25 18:49 08/12/25 18:49 Orders (Tests/Meds): ED MEDICATIONS Discontinued Medications Generic Name Dose Route Start Last Admin Trade Name Abranq PRN Reason Stop Dose Admin Acetaminophen 1,000 mg 08/12/25 19:00 08/12/25 19:37 Acetaminophen 1,000mg/100ml Vial IV 08/12/25 19:01 1,000 mg ONCE ONE Administration Sodium Chloride 1,000 mls @ 999 mls/hr 08/12/25 19:16 08/12/25 19:37 Sod Chlor 0.9% 1000ml Bag IV 08/12/25 20:16 999 mls/hr .Q1H1M ONE Administration Iopamidol 70 ml 08/12/25 19:41 08/12/25 19:43 Iopamidol-370 (76%);100ml Bottle IV 08/12/25 19:42 70 ml ONCE ONE Administration Ketorolac Tromethamine 15 mg 08/12/25 19:00 08/12/25 19:37 Ketorolac 15mg/Ml Vial IV 08/12/25 19:01 15 mg ONCE ONE Administration Sodium Chloride 50 ml 08/12/25 19:41 08/12/25 19:43 0.9 % Sodium Chloride 50 Ml Vial IV 08/12/25 19:42 50 ml ONCE ONE Administration Sodium Chloride 10 ml 08/12/25 19:41 08/12/25 19:43 Sodium Chloride 0.9% 10ml Syr (Rad Only) IV 08/12/25 19:42 10 ml ONCE ONE Administration ORDERS Category Date Time Status CT abdomen pelvis w con Stat Cat Scan 08/12/25 19:[address] angio chest PE protocol Stat Cat Scan 08/12/25 19:[address] head/brain wo con Stat Cat Scan 08/12/25 18:59 Completed XR chest portable Stat Exams 08/12/25 18:59 Completed Complete Blood Count Auto Diff Stat Lab 08/12/25 18:49 Completed Comprehensive Metabolic Panel Stat Lab 08/12/25 18:49 Completed D-Dimer Stat Lab 08/12/25 18:49 Completed Full Resp Panel w/COVID ([facility]) Routine Lab 08/12/25 19:27 Completed Magnesium Stat Lab 08/12/25 18:49 Completed NT Pro Brain Natriuretic Pep. Stat Lab 08/12/25 18:49 Completed Troponin I Q3H Lab 08/12/25 22:00 Ordered Troponin I Q3H Lab 08/13/25 01:00 Ordered Troponin I Stat Lab 08/12/25 18:49 Completed Urinalysis and Microscopic Stat Lab 08/12/25 20:03 Completed Medical Decision Narrative: 54-year-old male presents the emergency department with concern for high blood pressure see HPI for detailed past medical history, differential diagnosis include but not limited to, anxiety reaction, panic attack, hypertensive urgency, hypertensive emergency, cardiac arrhythmia, electrolyte disturbance, costochondritis, PE among others. I discussed this patient's case with the attending is Dr. Pepe Will obtain basic laboratory studies, D-dimer, proBNP, magnesium level, troponin, chest x-ray, will give 1 g IV Tylenol and 15 mg IV Toradol. I reviewed the patient's EKG along with the attending physician, NSR at 61 bpm NM interval within normals, QT interval within normal limits there is no STEMI. Mild hyponatremia at 130, mild creatinine elevation 1.3, will give 1 L IV NS CBC is notable for leukocytosis of 20.6 D-dimer is elevated at 0.81 thus will obtain CTA chest with without contrast PE protocol and CT ab and pelvis with contrast and also for completeness add on urinalysis and full respiratory panel. Troponin is less than 0.01, proBNP is mildly elevated 272 UA is unremarkable I reviewed the patient's CT head without contrast and with corresponding radiologic report, multiple subcortical and deep hypoattenuating white matter foci are present likely related to small vessel stents and changes and can also be seen with prior infectious/inflammatory insult or prior traumatic events. No hyperattenuating foci identified to suggest an acute intracranial hemorrhage. I reviewed the patient's chest x-ray along with corresponding radiologic report, no focal consolidation. Full respiratory panel/PCR is negative I reviewed the patient's CTA chest with and without contrast PE protocol along with the corresponding radiologic report, limitation due to motion artifact without major pulmonary embolism. I reviewed the patient's CT ab pelvis with contrast along with corresponding radiologic report, thickening of the urinary bladder wall nonspecific cystitis is possible correlate with UA. Reexamination of the patient at approximately 9:25 PM patient is resting comfortably in bed headache is improved. Patient has no other acute signs or symptoms, examination performed, no evidence of any wound dehiscence or drainage, patient's incisions look clean, well epithelialized, no scrotal swelling, no penile swelling or discharge, patient has isolated leukocytosis recommended follow-up for this patient has no signs or symptoms of any other infection, discussed all results with the patient at bedside patient voiced understanding and agreement with current treatment plan/discharge plan. Blood pressures remained stable throughout time in the emergency department. Patient will follow-up with PCP in the upcoming days. Strict return precautions given. Patient voiced understanding and agreement with the current treatment plan/discharge plan. Critical Care Critical Care Time Critical Care Time: No
[2025-08-12 19:04] LABS: Hematocrit 43.4 % (42.0-52.0); Hemoglobin 15.1 g/dL (14.1-18.0); Immature Granulocytes % 0.4 %; Mean Corpuscular HGB Conc 34.8 g/dL (31.8-35.4); Mean Corpuscular Hemoglobin 32.7 pg (27.0-31.2); Mean Corpuscular Volume 93.9 fl (80-94); Nucleated Red Blood Cells % 0 %; Platelet Count 300 K/mm3 (142-424); Red Blood Count 4.62 M/mm3 (4.60-6.20); Red Cell Distribution Width-SD 46.4 fL; White Blood Count 20.6 K/mm3 (4.8-10.8)
[2025-08-12 19:11] LABS: Alanine Aminotransferase 24 U/L (12-78); Albumin Level 4.1 g/dl (3.5-5.0); Albumin/Globulin Ratio 0.9 (1.1-1.8); Alkaline Phosphatase 70 U/L (38-126); Anion Gap 15.6 mEq/L (5-15); Aspartate Amino Transferase 28 U/L (17-59); Bilirubin,Total 0.8 mg/dl (0.2-1.3); Blood Urea Nitrogen 16 mg/dl (9-20); Calcium 9.6 mg/dl (8.4-10.2); Carbon Dioxide 25 mmol/L (22.0-30.0); Chloride 94 mmol/L (98-107); Creatinine Clearance Estimated 69 mL/min (50-200); Creatinine,Serum 1.30 mg/dl (0.66-1.25); Estimated Glomerular Filt Rate 58 ml/min (>60); GFR (African American) 70 ML/MIN (>60); Globulin 4.6 g/dL (1.3-3.2); Glucose 90 mg/dl (74-100); Magnesium 1.4 mg/dl (1.6-2.3); Potassium 4.6 mmoL/L (3.5-5.1); Sodium 130 mmol/L (136-145); Total Protein,Serum 8.7 g/dl (6.3-8.2)
[2025-08-12 19:16] LABS: D-Dimer 0.81 ug/mL (0.0-0.5)
--- NOTE | 2025-08-12 19:23 | CT_ITS ---
PROCEDURE INFORMATION: Exam: CT Abdomen And Pelvis With Contrast Exam date and time: 08/12/2025 7:47 PM Age: 54 years old Clinical indication: Other: Leukocytosis, general malaise TECHNIQUE: Imaging protocol: Computed tomography of the abdomen and pelvis with contrast. 3D rendering (Not supervised by radiologist): MIP and/or 3D reconstructed images were created by the technologist. Radiation optimization: All CT scans at this facility use at least one of these dose optimization techniques: automated exposure control; mA and/or kV adjustment per patient size (includes targeted exams where dose is matched to clinical indication); or iterative reconstruction. Contrast material: ISOVUE; Contrast volume: 70 ml; Contrast route: IV; COMPARISON: CT ABDOMEN PELVIS W CON 07/20/2024 8:04 PM FINDINGS: Liver: No suspicious mass. Gallbladder and biliary ducts: No calcified stones. No ductal dilation. Pancreas: No ductal dilation. No peripancreatic inflammatory changes. Spleen: Calcified granulomas spleen Adrenal glands: No mass. Kidneys and ureters: Too small to characterize hypodensities in the kidneys Stomach and bowel: Non-obstructive bowel gas pattern. Appendix: No CT evidence of acute appendicitis. Intraperitoneal space: No evidence of pneumoperitoneum. Vasculature: No abdominal aortic aneurysm. Lymph nodes: No lymphadenopathy by size criteria. Urinary bladder: Thickening of the urinary bladder wall, nonspecific, cystitis is possible. Reproductive: The prostate is present. Bones/joints: Old fractures left pubic rami. Bone islands Soft tissues: Prominent bilateral inguinal canals Other findings: Please refer to separate CT chest report for additional findings. IMPRESSION: Thickening of the urinary bladder wall, nonspecific, cystitis is possible. Correlate with UA. COMMENTS: Consistent with the [employer]'s Incidental Findings Committee white paper (J Am Marjorie Radiol 2018): Any incidental renal lesion less than 1 cm or classified as too small to characterize, or any incidental cystic renal lesion characterized as simple-appearing, is likely benign. No follow-up imaging is recommended for these lesions per consensus recommendations based on imaging criteria.
--- NOTE | 2025-08-12 19:23 | CT_ITS ---
PROCEDURE INFORMATION: Exam: CTA Chest With Contrast Exam date and time: 08/12/2025 7:47 PM Age: 54 years old Clinical indication: Shortness of breath; Additional info: Soa/chest tightness TECHNIQUE: Imaging protocol: Computed tomographic angiography of the chest with contrast. Exam focused on the arteries. 3D rendering (Not supervised by radiologist): MIP and/or 3D reconstructed images were created by the technologist. Radiation optimization: All CT scans at this facility use at least one of these dose optimization techniques: automated exposure control; mA and/or kV adjustment per patient size (includes targeted exams where dose is matched to clinical indication); or iterative reconstruction. Contrast material: ISO 370; Contrast volume: 70 ml; Contrast route: INTRAVENOUS (IV); COMPARISON: CT ANGIO CHEST PE PROTOCOL 07/20/2024 8:04 PM FINDINGS: Pulmonary arteries: Limitation due to motion artifact without major pulmonary embolism. Aorta: No thoracic aortic aneurysm. Trachea: Probable secretions in the trachea Lungs: Mild pulmonary emphysema. Probable atelectatic changes.. Calcified pulmonary granulomas. Pleural spaces: No pneumothorax. No pleural effusion. Heart: No pericardial effusion. Lymph nodes: Several calcified intrathoracic lymph nodes Bones/joints: No acute fracture. Soft tissues: Mild Gynecomastia. Other findings: Please refer to separate CT abdomen/pelvis report for additional findings. IMPRESSION: Limitation due to motion artifact without major pulmonary embolism. COMMENTS: The presence of pulmonary emphysema on CT is an independent risk factor for lung cancer. In the absence of a history or active diagnosis of lung cancer, it is recommended that this patient with emphysema be evaluated for enrollment in a low dose CT lung cancer screening program.
[2025-08-12 19:24] LABS: NT Pro Brain Natriuretic Pep. 272 pg/mL (0-125)
[2025-08-12 19:26] VITALS: BP 140/82; PULSE 56; RESP 15; O2SAT 98
[2025-08-12 19:28] LABS: Troponin I < 0.01 ng/ml (0.00-0.034)
[2025-08-12 19:34] LABS: Adenovirus,PCR Not Detected (NotDetected); Chlamydophila Pneumoniae, PCR Not Detected (NotDetected); Coronavirus 19, PCR Not Detected (NotDetected); Coronovirus HKU1,PCR Not Detected (NotDetected); Influenza A, PCR Not Detected (NotDetected); Influenza AH1, 2009 Not Detected (NotDetected); Influenza AH1, PCR Not Detected (NotDetected); Influenza AH3,PCR Not Detected (NotDetected); Influenza B, PCR Not Detected (NotDetected); Mycoplasma Pneumoniae, PCR Not Detected (NotDetected); Parainfluenza 1, PCR Not Detected (NotDetected); Parainfluenza 2, PCR Not Detected (NotDetected); Parainfluenza 3, PCR Not Detected (NotDetected); Parainfluenza 4, PCR Not Detected (NotDetected)
[2025-08-12] MEDS: ACETAMINOPHEN 1,000MG/100ML VIAL 1000 MG IV (19:37)
[2025-08-12] MEDS: 0.9 % SODIUM CHLORIDE 1000ML 1,000 ML 999 ML IV (19:37)
[2025-08-12] MEDS: KETOROLAC 15MG/ML VIAL 15 MG IV (19:37)
[2025-08-12] MEDS: 0.9 % SODIUM CHLORIDE 50 ML VIAL IV (19:43)
[2025-08-12] MEDS: IOPAMIDOL-370 (76%);100ML BOTTLE 70 ML IV (19:43)
[2025-08-12] MEDS: SODIUM CHLORIDE 0.9% 10ML SYR (RAD ONLY) 10 ML IV (19:43)
[2025-08-12 20:10] LABS: Microscopic, Urine URINE MICROSCOPIC (MICROSCOPIC)
[2025-08-12 20:11] LABS: Bilirubin,Urine Negative (Negative); Color,Urine YELLOW (Yellow); Glucose,Urine (UA) Negative (Negative); Ketones,Urine Negative (Negative); Leukocyte Esterase,Urine TRACE (Negative); PH,Urine 5.5 (5.0-8.5); Protein,Urine Negative (Negative); Specific Gravity, Urine 1.010 (1.005-1.030); Urobilinogen,Urine 0.2 EU/dl (0.2)
[2025-08-12 20:19] LABS: Macrocytosis 1+; Poikilocytosis 1+; Polychromasia 1+; Target Cells 1+; Total Cells Counted 100
[2025-08-12 20:20] LABS: Tear Drop Cells 1+
[2025-08-12 21:37] VITALS: BP 140/82; PULSE 58; RESP 18; TEMP 37.2; O2SAT 98
[2025-08-14 09:25] LABS: Hep B Surface Ab, Qual Non Reactive (.); Hepatitis B Surface Antigen Negative (Negative); Hepatitis C Antibody Non Reactive (Non Reactive)
== END 2025-08-12 22:00 | disposition home or self-care (01) ==
PROVIDERS: Physician Assistant; Emergency Provider Student in an Organized Health Care Education/Training Program; PCP Family Medicine
DX: R51.9 Headache, unspecified (principal); D72.829 Elevated white blood cell count, unspecified; R53.81 Other malaise; E87.1 Hypo-osmolality and hyponatremia; I10 Essential (primary) hypertension; E78.5 Hyperlipidemia, unspecified; I25.10 Atherosclerotic heart disease of native coronary artery without angina pectoris; E11.9 Type 2 diabetes mellitus without complications; J44.9 Chronic obstructive pulmonary disease, unspecified; Z87.891 Personal history of nicotine dependence; Z79.84 Long term (current) use of oral hypoglycemic drugs
CPT/HCPCS: 0223U; 70450; 71045; 71275; 74177; 80053; 81001; 83735; 83880; 84484; 85007; 85025; 85378; 86706; 86803; 87340; 87389; 93005; 96374; 96375; 96376; 99284; 99285; J0131; J1885; J7030; Q9967

== ENCOUNTER 2025-08-16 07:58 | Outpatient (CLI) | payer MEDICARE, SELFPAY ==
[2025-08-16 15:22] LABS: Hematocrit 39.1 % (42.0-52.0); Hemoglobin 13.5 g/dL (14.1-18.0); Immature Granulocytes % 0.5 %; Mean Corpuscular HGB Conc 34.5 g/dL (31.8-35.4); Mean Corpuscular Hemoglobin 32.8 pg (27.0-31.2); Mean Corpuscular Volume 94.9 fl (80-94); Nucleated Red Blood Cells % 0 %; Platelet Count 284 K/mm3 (142-424); Red Blood Count 4.12 M/mm3 (4.60-6.20); Red Cell Distribution Width-SD 47.0 fL; White Blood Count 10.4 K/mm3 (4.8-10.8)
[2025-08-16 17:03] LABS: Alanine Aminotransferase 21 U/L (12-78); Albumin Level 4.4 g/dl (3.5-5.0); Albumin/Globulin Ratio 1.4 (1.1-1.8); Alkaline Phosphatase 63 U/L (38-126); Anion Gap 10.8 mEq/L (5-15); Aspartate Amino Transferase 21 U/L (17-59); Bilirubin,Total 0.5 mg/dl (0.2-1.3); Blood Urea Nitrogen 14 mg/dl (9-20); Calcium 9.0 mg/dl (8.4-10.2); Carbon Dioxide 25 mmol/L (22.0-30.0); Chloride 100 mmol/L (98-107); Creatinine,Serum 1.30 mg/dl (0.66-1.25); Estimated Glomerular Filt Rate 58 ml/min (>60); GFR (African American) 70 ML/MIN (>60); Globulin 3.2 g/dL (1.3-3.2); Glucose 105 mg/dl (74-100); Potassium 4.8 mmoL/L (3.5-5.1); Sodium 131 mmol/L (136-145); Total Protein,Serum 7.6 g/dl (6.3-8.2)
[2025-08-16 20:18] LABS: Hemoglobin A1C 5.1 % (4.0-6.0)
--- OUTSIDE RECORDS SUMMARY | 2025-08-18 08:01 | XMS_ITS ---
Laboratory report Created on: August 17, 2025 SHARON MCCARTHY : 1970 Sex: Male Author Organization Unknown PROBLEMS Problems List Code Description RESULTS Laboratory Orders Date Order Code Test 2025-08-12 [id number] HBSAG SCREEN 2025-08-12 [id number] HEP B SURFACE AB , QUAL 2025-08-12 [id number] HCV ANTIBODY Laboratory Results Date LOINC Test Value Unit Reference Range Interpre tation 2025-08-12 [id number] HBSAG SCREEN N NEGATIVE 2025-08-12 76094-7 HEP B SURFACE AB, QUAL NR 2025-08-12 [id number] HEP C VIRUS AB NR NON REACTIVE
== END 2025-08-16 23:59 ==
LOC: LAB.DROPOF 08-18 07:59
PROVIDERS: PCP Family Medicine; Visit Provider Family Medicine
DX: E11.9 Type 2 diabetes mellitus without complications (principal)
CPT/HCPCS: 80053; 83036; 85025

== ENCOUNTER 2025-09-02 15:25 | Outpatient (CLI) | payer MEDICARE, SELFPAY ==
[2025-09-02 16:14] LABS: Cholesterol 158 mg/dl (140-200); HDL Cholesterol 43 mg/dl (40-60); Triglycerides 167 mg/dl (30-150)
== END 2025-09-02 23:59 | disposition home or self-care (01) ==
LOC: LAB 15:26
PROVIDERS: PCP Family Medicine; Visit Provider Nurse Practitioner Family
DX: E78.2 Mixed hyperlipidemia (principal); I10 Essential (primary) hypertension
CPT/HCPCS: 36415; 80061

== ENCOUNTER 2025-09-09 22:16 | Emergency (ER) | payer MEDICARE, SELFPAY ==
[2025-09-09 22:45] VITALS: BP 131/69; PULSE 77; RESP 16; TEMP 37.1; O2SAT 96; BMI 23.9
--- NOTE | 2025-09-09 22:53 | [facility].EDGENADL ---
Discharge Plan Disposition Patient Disposition: Home, Self-Care Condition: Good Prescriptions Prescriptions: No Action (DME) insulin syringe-needle U-100 [Sure Comfort Insulin Syringe] 1 mL 29 gauge x 1/2 syringe See Rx Instructions .ROUTE DIRECTED Qty: 10 Rx Instructions: As directed aspirin [Adult Low Dose Aspirin] 81 mg tablet,delayed release (DR/EC) 81 mg PO DAILY Qty: 90 3RF atorvastatin 40 mg tablet 40 mg PO HS Qty: 30 11RF hydrochlorothiazide 25 mg tablet 25 mg PO DAILY Qty: 30 11RF losartan 100 mg tablet 100 mg PO DAILY 30 Days Qty: 30 11RF metoprolol succinate 200 mg tablet extended release 24 hr 200 mg PO DAILY Qty: 30 11RF oehgfdrfzk-hylvxeeqqubwa-rwrv [Fioricet] 50-300-40 mg capsule 1 cap PO Q8H PRN (Reason: pain) Qty: 20 0RF testosterone [AndroGel] 20.25 mg/1.25 gram (1.62 %) gel in metered-dose pump 2 pump topical DAILY 30 Days Qty: 75 3RF Rx Instructions: apply 4 pump amount over max area of EACH upper arm and shoulder oxybutynin chloride 10 mg tablet extended release 24hr 10 mg PO DAILY 90 Days Qty: 90 1RF tamsulosin [Flomax] 0.4 mg capsule 0.4 mg PO DAILY 90 Days Qty: 90 1RF fluoxetine [Prozac] 40 mg capsule 40 mg PO DAILY Qty: 90 3RF bupropion HCl [Wellbutrin XL] 150 mg tablet extended release 24 hr 150 mg PO DAILY Qty: 90 3RF desvenlafaxine succinate 100 mg tablet extended release 24 hr 100 mg PO ONCE Qty: 90 0RF mupirocin 2 % ointment 1 applic topical TID Qty: 22 0RF (DME) blood-glucose meter [True Metrix Glucose Meter] Misc See Rx Instructions .ROUTE .COMPLEX Qty: 1 0RF Dose Instruction: USE DIRECTED Rx Instructions: USE DIRECTED (DME) lancets [TRUEplus Lancets] 28 gauge misc See Rx Instructions .ROUTE .COMPLEX Qty: 100 0RF Dose Instruction: CHECK BLOOD SUGAR ONCE OR TWICE A A DAY Rx Instructions: CHECK BLOOD SUGAR ONCE OR TWICE A A DAY (DME) True Metrix Glucose Test Strip Strip See Rx Instructions .Route Qty: 100 0RF Rx Instructions: Use to check blood sugar daily and prn quetiapine [Seroquel] 200 mg tablet 200 mg PO DAILY Qty: 90 3RF alprazolam 2 mg tablet 2 mg PO DAILY PRN (Reason: anxiety) Qty: 10 0RF gabapentin 300 mg capsule 300 mg PO BID Qty: 60 2RF Creon 36,000-114,000- 180,000 unit capsule,delayed release(DR/EC) 1 cap PO 6XD Qty: 240 3RF Rx Instructions: Administer 1 capsules P.O before meals and snacks; up to 6 a day pantoprazole 40 mg tablet,delayed release (DR/EC) 40 mg PO DAILY Qty: 90 0RF Rx Instructions: TAKE 1 TABLET BY MOUTH ONCE A DAY metformin 1,000 mg tablet 1,000 mg PO DAILY Rx Instructions: TAKE ONE TABLET BY MOUTH 2 TIMES A DAY cholecalciferol (vitamin D3) 1,250 mcg (50,000 unit) capsule 1,250 mcg PO DAILY Rx Instructions: TAKE 1 CAPSULE BY MOUTH ONCE WEEKLY FOR 3 MONTHS Referrals Follow up/Referrals: Pineda Glover MD [Primary Care Provider, Family Practice] - See instructions Activity Restrictions/Add. Instructions Additional Instructions/Restrictions: Stop taking your ED medication until you call your primary care provider. Return to the emergency department if you have an erection for more than an hour, if you have progression of your bleeding develop any open wounds or pus or if you have any other acute concerns. Clinical Impressions Clinical Impression: Penis pain Print Language Print Language: French Discharge ED Provider: Carmen Pepe General Adult HPI General Chief complaint: Skin/Abscess/Foreign Body Stated complaint: blood blister on his privates Time Seen by Provider: 09/09/25 22:31 History of Present Illness HPI narrative: Patient is a 55-year-old male who presented to the emergency department with a penile lesion. Patient states that he has been currently injecting medication into his penis for erectile dysfunction. Patient was told to do 30 cc daily. Patient states that he did 36 cc today and did 40 cc yesterday. Patient states that he had an area of some blood on his penis that started today. Patient denies any drainage penile swelling prolonged erection, amongst others. Related Data Home Medications ?Medication ?Instructions ?Recorded ?Confirmed cholecalciferol (vitamin D3) 1,250 1,250 mcg PO DAILY 07/29/25 09/06/25 mcg (50,000 unit) capsule metformin 1,000 mg tablet 1,000 mg PO DAILY 07/29/25 09/06/25 insulin syringe-needle U-100 1 mL #10 ea 09/02/25 09/06/25 29 gauge x 1/2 (Sure Comfort Insulin Syringe) Previous Rx's ?Medication ?Instructions ?Recorded blood-glucose meter (True Metrix ##1 01/11/23 Glucose Meter) lancets 28 gauge (TRUEplus Lancets) #100 ea 05/09/23 blood sugar diagnostic (True #100 ea 04/28/24 Metrix Glucose Test Strip) quetiapine 200 mg tablet (Seroquel) 200 mg PO DAILY #90 tabs 11/23/24 bupropion HCl 150 mg 24 hr tablet, 150 mg PO DAILY #90 tabs 03/22/25 extended release (Wellbutrin XL) fluoxetine 40 mg capsule (Prozac) 40 mg PO DAILY #90 caps 03/22/25 ysvbhigvmz-cpyhrqsikrwjo-aqlccjxo 1 cap PO Q8H PRN pain #20 caps 05/03/25 50 mg-300 mg-40 mg capsule (Fioricet) alprazolam 2 mg tablet 2 mg PO DAILY PRN anxiety #10 tabs 05/19/25 desvenlafaxine succinate 100 mg 100 mg PO ONCE #90 tabs 07/05/25 tablet,extended release 24 hr testosterone (AndroGel) 2 pump topical DAILY 30 days #75 07/12/25 grams gabapentin 300 mg capsule 300 mg PO BID #60 caps 08/09/25 oxybutynin chloride 10 mg 10 mg PO DAILY 90 days #90 tabs 08/09/25 tablet,extended release 24 hr tamsulosin 0.4 mg capsule (Flomax) 0.4 mg PO DAILY 90 days #90 caps 08/09/25 gshfwy-yktddcax-qjiixki 1 cap PO 6XD #240 caps 08/13/25 (pork)36,000-114,000-180k unit capsule,del rel (Creon) mupirocin 2 % topical ointment 1 applic topical TID #22 grams 08/16/25 pantoprazole 40 mg tablet,delayed 40 mg PO DAILY #90 tabs 08/19/25 release aspirin 81 mg tablet,delayed 81 mg PO DAILY #90 tabs 09/02/25 release (Adult Low Dose Aspirin) atorvastatin 40 mg tablet 40 mg PO HS #30 tabs 09/02/25 hydrochlorothiazide 25 mg tablet 25 mg PO DAILY #30 tabs 09/02/25 losartan 100 mg tablet 100 mg PO DAILY 30 days #30 tabs 09/02/25 metoprolol succinate 200 mg 200 mg PO DAILY #30 tabs 09/02/25 tablet,extended release 24 hr Allergies Allergy/AdvReac Type Severity Reaction Status Date / Time venom-honey bee Allergy Severe Anaphylaxis Verified 09/06/25 08:52 nickel Allergy Unknown Hives Verified 09/06/25 08:52 adhesive tape Allergy Rash Verified 09/06/25 08:52 [facility] Disclaimer: The information contained in this section may have been updated after the patient was seen, as this information can be updated by other users. 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 Sinusitis Benign prostatic hyperplasia Carotid stenosis Tinea cruris Viral upper respiratory infection Depression Asthma COPD (chronic obstructive pulmonary disease) Angina pectoris Diabetes Dizziness Dyspnea Fatigue CAD (coronary artery disease) Chest pain SOB (shortness of breath) Abnormal stress test Hyperlipidemia GERD (gastroesophageal reflux disease) Hypertension Surgical History History of surgical procedure on mouth History of nasal surgery Family History Mother Thyroid cancer Father Prostate cancer Arrhythmia Social History Smoking Status: Current every day smoker tobacco type: cigarettes packs per day: 1 second hand exposure: No alcohol intake: never substance use type: denies use current occupational status: disabled Travel in the last 8 weeks?: None household members: family housing: house current occupation: unemployed current occupational exposures/hazards: No caffeine: Yes Have you lived/traveled outside [place] in past 30 days?: No Contact w/someone who lives/traveled outside [place] past 30 days?: No Exposure to someone with infectious disease in past 14 days?: No Do you have a fever (greater than 100.4 F or 38 C)?: No Have you tested positive for COVID-19?: No Exposed to someone with COVID-19 in past 14 days?: No Do you have a sore throat?: No Do you have a cough?: No Do you have any weakness?: No Do you have any diarrhea?: No Are you experiencing any unusual bleeding?: No Do you have any muscle aches/pain?: No Do you have any abdominal pain?: No Are you experiencing loss of taste or smell?: No Other 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 Have you received the Flu Vaccine for this season: No Have you received the Pneumonia Vaccine: Yes ROS Obtained: Yes All systems reviewed & no additional complaints except as documented and Yes Systems reviewed as appropriate & no additional complaints except as documented Physical Exam General General appearance: alert and in no apparent distress Head Head exam: atraumatic, normocephalic and normal inspection Eye Eye exam: Present normal appearance, PERRL and EOMI; Absent scleral icterus ENT ENT exam: Present normal exam and normal external ear exam Neck Neck exam: Present normal inspection and full ROM Chest Chest inspection: Present normal inspection and symmetric chest wall rise Respiratory Respiratory exam: Present normal lung sounds bilaterally; Absent respiratory distress or wheezes Cardiovascular Cardiovascular exam: Present regular rate, normal rhythm and normal heart sounds Abdominal Exam Abdominal exam: Present soft and distention; Absent tenderness, guarding or rebound exam: Present other (flaccid penis with an area of hematoma on the right side, no drainage, no other lesions) Extremities Exam Extremities exam: Present normal inspection and full ROM Back Exam Back exam: Present normal inspection and full ROM Neurological Exam Neurological exam: Present alert and oriented X3 Psychiatric Psychiatric exam: Present normal affect and normal mood Skin Skin exam: Present warm and dry Medical Decision Making Medical Records Medical records reviewed: Yes I reviewed the patient's medical records. Screening: Per USPSTF and CDC recommendations, given the prevalence of disease in our region, it is our hospital?s policy to screen for HIV and viral Hepatitis for all patients aged 18 and over and those with ongoing risk factors. Chidi Inquiry Pt receiving controlled substance: No Vital Signs: 09/09/25 22:45 09/09/25 23:07 Temperature 98.7 F 97.8 F Temperature Source Oral Oral Pulse Rate 71 Pulse Rate [Left] 77 Respiratory Rate 16 18 Blood Pressure 125/78 Blood Pressure [Right Arm] 131/69 Blood Pressure Mean [Right Arm] 89 Blood Pressure Source [Right Arm] Automatic Cuff Blood Pressure Position [Right Arm] Sitting 02 Sat by Pulse Oximetry 96 Oxygen Delivery Method Room Air Room Air Lab Data Lab results reviewed: Yes I reviewed the patient's lab results. Medical Decision Narrative: Patient is a 55-year-old male with a past medical history of erectile dysfunction who presented to the emergency department with concern for a lesion on his penis. On arrival, patient was hemodynamically stable to unremarkable vital signs. Differential includes but not limited to: Medication side effect, blister, infection, trauma related to injections, amongst others. On exam, patient had a flaccid penis that had not been erect for a long period of time. Patient had an area of bruising on the right side with no signs of infection including redness lesions. Patient had not been complaining of fevers. At this time I felt the patient was appropriate for discharge with outpatient follow-up with his primary care provider. I recommended that patient stop taking his injections until he follows up with his primary care provider. Patient was otherwise discharged home in stable condition. Critical Care Critical Care Time Critical Care Time: No
[2025-09-09 23:07] VITALS: BP 125/78; PULSE 71; RESP 18; TEMP 36.6; O2SAT 98
== END 2025-09-09 23:17 | disposition home or self-care (01) ==
PROVIDERS: Emergency Provider Student in an Organized Health Care Education/Training Program; PCP Family Medicine
DX: N48.89 Other specified disorders of penis (principal)
CPT/HCPCS: 99282

== ENCOUNTER 2025-10-11 14:47 | Outpatient (CLI) | payer MEDICARE, SELFPAY ==
--- OUTSIDE RECORDS SUMMARY | 2025-10-11 14:51 | XMS_ITS | Data Portability ---
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 We discussed options of testosterone replacement therapy. We discussed risks of testosterone replacement therapy including cardiovascular disease, stroke risk, hepatic dysfunction, polycythemia, prostate growth benign and cancerous, etc. Confirmatory testosterone level. [email or web address] Not available 11/05/2019 16:18:55 11/19/2019 11/19/2019 We reviewed the risks of testosterone replacement therapy including cardiovascular disease, stroke risk, hepatic dysfunction, polycythemia, prostate growth - benign and cancerous, decreased sperm count, etc. After reviewing the risks he would like to proceed with replacement therapy. [email or web address] Not available 11/19/2019 14:19:55 03/24/2020 03/24/2020 We reviewed the risks of testosterone replacement therapy including cardiovascular disease, stroke risk, hepatic dysfunction, polycythemia, prostate growth - benign and cancerous, decreased sperm count, etc. Testosterone dose increased to 4 pumps daily. Follow-up with laboratory studies. [email or web address] Not available 03/27/2020 14:03:33 Plan of Treatment [...] urinalysis, dipstick, auto 2019 020 [email or web address] 14 [facility], [address], [address], [place], [address], 0 14:03:10 CBC 2019 020 [email or web address] Not available 0 14:47:52 urinalysis, dipstick, auto 2019 020 [email or web address] 14 [facility], [address], [place], [address], 0 15:58:32 Referral None recorded. Procedures None recorded. Surgeries None recorded. Imaging None recorded. Medication Orders testosteron e 20.25 mg/1.25 gram per pump act.(1.62 %) transdermal gel 2019 020 [email or web address] Not available 0 15:25:51 Patient TargetsNo targets recorded. Patient Instructions Encounter Date Encounter Id Patient Instructions Last Modified By Organization Details Last Modified Time 03/24/2020 [id number] learning about healthy weight [email or web address] Not available 03/27/2020 14:03:10 Reason for Referral None Reported. Results Created Date Observation Date Name Description Value Unit Range Abnormal Flag Note LastModifiedBy Organization Detail LastModifiedTime 03/24/20 20 03/24/2020 urina lysis , dipst ick, auto Unknown Analyte Yellow Not Available [facility] [address], [place], [address], 03/24/2020 16:00:52 03/24/20 20 03/24/2020 urina lysis , dipst ick, auto Unknown Analyte Clear Not Available [facility] [address], [place], [address], 03/24/2020 16:00:52 03/24/20 20 03/24/2020 urina lysis , dipst ick, auto Unknown Analyte 1.000 Not Available [facility] [address], [place], [address], 03/24/2020 16:00:52 03/24/20 20 03/24/2020 urina lysis , dipst ick, auto Unknown Analyte 1.003 - 1.035 Not Available [facility] [address], [place], [address], 03/24/2020 16:00:52 03/24/20 20 03/24/2020 urina lysis , dipst ick, auto Unknown Analyte 6.5 Not Available [facility] [address], [place], [address], 03/24/2020 16:00:52 03/24/20 20 03/24/2020 urina lysis , dipst ick, auto Unknown Analyte 5.0 - 8.0 Not Available [facility] [address], [place], [address], 03/24/2020 16:00:52 03/24/20 20 03/24/2020 urina lysis , dipst ick, auto Unknown Analyte Negati ve Not Available [facility] [address], [place], [address], 03/24/2020 16:00:52 03/24/20 20 03/24/2020 urina lysis , dipst ick, auto Unknown Analyte Negati ve Not Available [facility] [address], [place], [address], 03/24/2020 16:00:52 03/24/20 20 03/24/2020 urina lysis , dipst ick, auto Unknown Analyte Negati ve Not Available [facility] [address], [place], [address], 03/24/2020 16:00:52 03/24/20 20 03/24/2020 urina lysis , dipst ick, auto Unknown Analyte Negati ve Not Available [facility] [address], [place], [address], 03/24/2020 16:00:52 03/24/20 20 03/24/2020 urina lysis , dipst ick, auto Unknown Analyte Negtiv e Not Available [facility] [address], [place], [address], 03/24/2020 16:00:52 03/24/20 20 03/24/2020 urina lysis , dipst ick, auto Unknown Analyte Negati ve - Trace Not Available [facility] [address], [place], [address], 03/24/2020 16:00:52 03/24/20 20 03/24/2020 urina lysis , dipst ick, auto Unknown Analyte Normal Not Available [facility] [address], [place], [address], 03/24/2020 16:00:52 03/24/20 20 03/24/2020 urina lysis , dipst ick, auto Unknown Analyte Normal Not Available [facility] [address], [place], [address], 03/24/2020 16:00:52 03/24/20 20 03/24/2020 urina lysis , dipst ick, auto Unknown Analyte Negati ve Not Available [facility] [address], [place], [address], 03/24/2020 16:00:52 03/24/20 20 03/24/2020 urina lysis , dipst ick, auto Unknown Analyte Negati ve Not Available [facility] [address], [place], [address], 03/24/2020 16:00:52 03/24/20 20 03/24/2020 urina lysis , dipst ick, auto Unknown Analyte Normal Not Available [facility] [address], [place], [address], 03/24/2020 16:00:52 03/24/20 20 03/24/2020 urina lysis , dipst ick, auto Unknown Analyte Normal - 1mg/dl Not Available [facility] [address], [place], [address], 03/24/2020 16:00:52 03/24/20 20 03/24/2020 urina lysis , dipst ick, auto Unknown Analyte Negati ve Not Available [facility] [address], [place], [address], 03/24/2020 16:00:52 03/24/20 20 03/24/2020 urina lysis , dipst ick, auto Unknown Analyte Negati ve Not Available [facility] [address], [place], [address], 03/24/2020 16:00:52 03/24/20 20 03/24/2020 urina lysis , dipst ick, auto Unknown Analyte Negati ve Not Available [facility] [address], [place], [address], 03/24/2020 16:00:52 03/24/20 20 03/24/2020 urina lysis , dipst ick, auto Unknown Analyte Negati ve Not Available [facility] With [address], [place], [address], 03/24/2020 16:00:52 03/24/20 20 03/24/2020 urina lysis , dipst ick, auto Unknown Analyte Clean Catch Not Available [facility] [address], [place], [address], 03/24/2020 16:00:52 03/24/20 20 03/24/2020 urina lysis , dipst ick, auto Unknown Analyte Automa hanna Not Available [facility] [address], [place], [address], 03/24/2020 16:00:52 11/05/19 20 11/05/2019 urina lysis , dipst ick, auto Unknown Analyte Yellow Not Available [facility] [address], [place], [address], 11/05/2019 16:22:58 11/05/19 20 11/05/2019 urina lysis , dipst ick, auto Unknown Analyte Clear Not Available [facility] [address], [place], [address], 11/05/2019 16:22:58 11/05/19 20 11/05/2019 urina lysis , dipst ick, auto Unknown Analyte 1.010 Not Available [facility] [address], [place], [address], 11/05/2019 16:22:58 11/05/19 20 11/05/2019 urina lysis , dipst ick, auto Unknown Analyte 1.003 - 1.035 Not Available [facility] [address], [place], [address], 11/05/2019 16:22:58 11/05/19 20 11/05/2019 urina lysis , dipst ick, auto Unknown Analyte 8.0 Not Available [facility] [address], [place], [address], 11/05/2019 16:22:58 11/05/19 20 11/05/2019 urina lysis , dipst ick, auto Unknown Analyte 5.0 - 8.0 Not Available [facility] [address], [place], [address], 11/05/2019 16:22:58 11/05/19 20 11/05/2019 urina lysis , dipst ick, auto Unknown Analyte Negati ve Not Available [facility] [address], [place], [address], 11/05/2019 16:22:58 11/05/19 20 11/05/2019 urina lysis , dipst ick, auto Unknown Analyte Negati ve Not Available [facility] [address], [place], [address], 11/05/2019 16:22:58 11/05/19 20 11/05/2019 urina lysis , dipst ick, auto Unknown Analyte Negati ve Not Available [facility] [address], [place], [address], 11/05/2019 16:22:58 11/05/19 20 11/05/2019 urina lysis , dipst ick, auto Unknown Analyte Negati ve Not Available [facility] [address], [place], [address], 11/05/2019 16:22:58 11/05/19 20 11/05/2019 urina lysis , dipst ick, auto Unknown Analyte Negtiv e Not Available [facility] [address], [place], [address], 11/05/2019 16:22:58 11/05/19 20 11/05/2019 urina lysis , dipst ick, auto Unknown Analyte Negati ve - Trace Not Available [facility] [address], [place], [address], 11/05/2019 16:22:58 11/05/19 20 11/05/2019 urina lysis , dipst ick, auto Unknown Analyte Normal Not Available [facility] [address], [place], [address], 11/05/2019 16:22:58 11/05/19 20 11/05/2019 urina lysis , dipst ick, auto Unknown Analyte Normal Not Available [facility] [address], [place], [address], 11/05/2019 16:22:58 11/05/19 20 11/05/2019 urina lysis , dipst ick, auto Unknown Analyte Negati ve Not Available [facility] [address], [place], [address], 11/05/2019 16:22:58 11/05/19 20 11/05/2019 urina lysis , dipst ick, auto Unknown Analyte Negati ve Not Available [facility] [address], [place], [address], 11/05/2019 16:22:58 11/05/19 20 11/05/2019 urina lysis , dipst ick, auto Unknown Analyte Normal Not Available [facility] [address], [place], [address], 11/05/2019 16:22:58 11/05/19 20 11/05/2019 urina lysis , dipst ick, auto Unknown Analyte Normal - 1mg/dl Not Available [facility] With [address], [place], [address], 11/05/2019 16:22:58 11/05/19 20 11/05/2019 urina lysis , dipst ick, auto Unknown Analyte Negati ve Not Available [facility] [address], [place], [address], 11/05/2019 16:22:58 11/05/19 20 11/05/2019 urina lysis , dipst ick, auto Unknown Analyte Negati ve Not Available [facility] [address], [place], [address], 11/05/2019 16:22:58 11/05/19 20 11/05/2019 urina lysis , dipst ick, auto Unknown Analyte Negati ve Not Available [facility] With [address], [place], [address], 11/05/2019 16:22:58 11/05/19 20 11/05/2019 urina lysis , dipst ick, auto Unknown Analyte Negati ve Not Available [facility] [address], [place], [address], 11/05/2019 16:22:58 11/05/19 20 11/05/2019 urina lysis , dipst ick, auto Unknown Analyte Clean Catch Not Available [facility] With [address], [place], [address], 11/05/2019 16:22:58 11/05/19 20 11/05/2019 urina lysis , dipst ick, auto Unknown Analyte Automa hanna Not Available [facility] With [address], [place], [address], 11/05/2019 16:22:58 Result Notes None recorded. Medical Equipment None Reported. Allergies Allergen ID Allergen Name Allergen Category Reaction Reaction Severity Criticality Documentation Date Start Date Code Code System Note Provider Name and Address Organization Details Recorded Time 563810 adhesive environme nt,medica tion Not available Not available Not available [facility] 0 16:18:27 Medications Name Sig [...] Updated DateTime 11/05/2019 177.8 cm 30.4 kg/m2 70130.58 g [facility] 11/05/2019 16:18:13 Date Recorded Body height Body mass index (BMI) Body weight Provider Name and Address Organization Details Last Updated DateTime 11/19/2019 177.8 cm 30.4 kg/m2 35864.58 g Robert Salcedo [facility] 11/19/2019 13:59:31 Date Recorded Body height Body mass index (BMI) Body weight Body temperature Provider Name and Address Organization Details Last Updated DateTime 03/24/2020 177.8 cm 30.4 kg/m2 22463.58 g 98 [degF] [facility] 03/24/2020 16:00:10 Social History Question Answer Notes LastModified by Organizat ion Details LastModified Time Tobacco Smoking Status Former Smoker [facility] 11/05/2019 16:19:39 Marital Status Informatio n [...] Diagnosis SNOMED-CT Code Diagnosis ICD10 Code Diagnosis IMO Codes Diagnosis Note [id number] ADAM GARZON MD [facility] [address] [address] 11/05/2019 14:19:05 11/05/2019 15:41:41 Testicular hypofunction 316496023 E29.1 [id number] ADAM GARZON MD [facility] [address] [address] 11/19/2019 13:22:20 11/19/2019 13:59:07 Testicular hypofunction 027212142 E29.1 [id number] ADAM GARZON MD [facility] [address] [address] 03/24/2020 14:15:00 03/24/2020 15:27:39 Benign prostatic hyperplasia with outflow obstruction 784210345 N40.1 Testicular hypofunction 501095588 E29.1 Secondary polycythemia 57704609 D75.1 Liver func tion tests outside reference range 334155635 R94.5 Benign pro static hyperplasia 717245938 N40.1 Health Concerns Section Related Observation LastModified by Organization Detai ls LastModified Time None Recorded Concern Status LastModified by Organization Details LastModified Time None Recorded Advance Directives Directive None Recorded Payers Insurance Date Sequence Insurance Name Policy Number Policy Rodriguez Covered Member ID Rodriguez Member ID Guarantor Name 05/23/2020 [employer] (MEDICARE REPLACEMENT/AD VANTAGE - PPO) Poncho Gr [id number] Poncho Gr 05/23/2020 1 [employer] - CHOICECARE (PPO) Poncho Jovita Gr [id number] Poncho Jovita Gr Notes Date Note Type [...] but does report dysuria. ADAM GARZON MD [address] [place] [address], [address], [facility] 11/08/2019 15:59:13 11/19/2019 text/html 49-year-old male in [...] nocturia 2-3 times nightly. ADAM GARZON MD [address] [place] [address], [address], [facility] 11/21/2019 17:04:02 03/24/2020 text/html 49-year-old male in the office for follow-up evaluation of testicular hypofunction. He uses testosterone 1.62% transdermal gel, 2 pumps daily. He continues to have low energy level and low libido. He has troubles obtaining and maintaining an erection. Testosterone from 03/09/20 was 187 and PSA normal at 0.44. ADAM GARZON MD [address] [place] [address], [address], [facility] 03/27/2020 14:04:15
[2025-10-11] MEDS: ALBUTEROL 0.083% 2.5 MG/3 ML NEB IH (15:52)
--- NOTE | 2025-10-11 15:52 | PC.NURSE ---
PFT completed without incident. Albuterol 0.083% given via HHN, per written protocol, Pt tolerated tx well. 6 Minute walk test completed without incident.
== END 2025-10-11 23:59 | disposition home or self-care (01) ==
LOC: RT 14:48
PROVIDERS: PCP Family Medicine; Visit Provider Nurse Practitioner Family
DX: J44.9 Chronic obstructive pulmonary disease, unspecified (principal); F17.210 Nicotine dependence, cigarettes, uncomplicated
CPT/HCPCS: 94010; 94618; 94727; 94729